=== PATIENT | female | born 1955 | race Caucasian/White ===

== ENCOUNTER → 2017-02-13 | Outpatient (CLI) | payer OTHER ==
--- NOTE | 2017-02-14 06:09 | REP ---
Right hand series: Four views. History: Right hand pain. Findings: Four views of the right hand demonstrate osteoarthritis at the first MCP and IP joints. Overall mineralization pattern is normal. No other abnormality. 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 No acute bony abnormality. Signed by Rojelio Shepherd MD 02/14/2017 08:45 A
== END ==
LOC: M LRY 16:57
PROVIDERS: ATTEND Physician Assistant
DX: M19.041 Primary osteoarthritis, right hand (principal)

== ENCOUNTER → 2018-01-11 | Outpatient (CLI) | payer OTHER ==
[2018-01-11 18:31] LABS: BASO # 0.1 10^3/uL (0.0-0.2); BASO % 1.4 % (0.0-1.0); EOS # 0.3 10^3/uL (0.0-0.50); EOS % 3.4 % (0.0-3.0); HEMATOCRIT 42.1 % (36.0-47.0); HEMOGLOBIN 14.3 g/dl (12.0-15.5); IMMATURE GRANULOCYTE % 0.4 % (0-3.0); LYMPH # 2.4 10^3/uL (1.5-4.5); LYMPH % 31.1 % (24.0-44.0); MEAN CORPUSCULAR HEMOGLOBIN 29.2 pg (27.0-33.0); MEAN CORPUSCULAR VOLUME 85.9 fl (80.0-96.0); MONO # 0.7 10^3/uL (0.0-0.8); NEUTROPHILS # 4.2 10^3/uL (1.8-7.7); NEUTROPHILS % 54.7 % (36.0-66.0); PLATELET COUNT, AUTOMATED 283 10^3/uL (150-450); RED CELL DISTRIBUTION WIDTH 11.9 % (11.5-14.5); WHITE BLOOD COUNT 7.7 10^3/uL (4.0-10.0)
[2018-01-11 18:52] LABS: RHEUMATOID FACTOR QUANT < 10.0 IU/ML (<15.0)
[2018-01-11 20:04] LABS: ERYTHROCYTE SEDIMENTATION RATE 18 mm/hr (0-30)
[2018-01-15 00:06] LABS: ANTINUCLEAR ANTIBODIES DIRECT Negative (Negative); Lyme Disease IgG Ab 18 kDa Ban Absent (.); Lyme Disease IgG Ab 23 kDa Ban Absent (.); Lyme Disease IgG Ab 28 kDa Ban Absent (.); Lyme Disease IgG Ab 30 kDa Ban Absent (.); Lyme Disease IgG Ab 39 kDa Ban Absent (.); Lyme Disease IgG Ab 41 kDa Ban Absent (.); Lyme Disease IgG Ab 45 kDa Ban Absent (.); Lyme Disease IgG Ab 58 kDa Ban Absent (.); Lyme Disease IgG Ab 66 kDa Ban Absent (.); Lyme Disease IgG Ab 93 kDa Ban Absent (.); Lyme Disease IgG West Blot Int Negative (.); Lyme Disease IgG/IgM Antibodie <0.91 ISR (0.00-0.90); Lyme Disease IgM Ab 23 kDa Ban Absent (.); Lyme Disease IgM Ab 39 kDa Ban Absent (.); Lyme Disease IgM Ab 41 kDa Ban Absent (.); Lyme Disease IgM Ab Quantitati 1.02 index (0.00-0.79); Lyme Disease IgM West Blot Int Negative (.)
== END ==
LOC: M LAB 15:50
DX: M25.511 Pain in right shoulder (principal); M25.512 Pain in left shoulder; M19.012 Primary osteoarthritis, left shoulder
CPT/HCPCS: 86140

== ENCOUNTER 2020-12-31 23:09 | Inpatient (IN) | payer OTHER, MEDICARE ==
[~2020-12-31] VITALS: Ht 170.2 cm; Wt 93.8 kg
[2021-01-01] VITALS (12 sets, daily range): BP systolic 104–138; BP diastolic 59–77; O2SAT 86–99
[2021-01-01] MEDS ORDERED: COMBIVENT RESPIMAT 100-20MCG INHALER 4GM INH PRN (01:10)
[2021-01-01 01:23] LABS: BASO % 0.1 % (0.0-1.0); HEMATOCRIT 40.8 % (36.0-47.0); HEMOGLOBIN 13.4 g/dl (12.0-15.5); LYMPH # 0.5 10^3/uL (1.5-5.0); LYMPH % 7.1 % (24.0-44.0); MEAN CORPUSCULAR HEMOGLOBIN 26.9 pg (27.0-33.0); MEAN CORPUSCULAR HGB CONC 32.8 g/dl (32.0-36.5); MEAN CORPUSCULAR VOLUME 81.8 fl (80.0-96.0); MONO # 0.5 10^3/uL (0.0-0.8); MONO % 6.9 % (2.0-8.0); NEUTROPHILS # 5.8 10^3/uL (1.5-8.5); NEUTROPHILS % 85.5 % (36.0-66.0); PLATELET COUNT, AUTOMATED 168 10^3/uL (150-450); RED BLOOD COUNT 4.99 10^6/uL (4.00-5.40); WHITE BLOOD COUNT 6.8 10^3/uL (4.0-10.0)
--- NOTE | 2021-01-01 01:28 | HPEPDOC ---
[facility] Medical History & Physical Date of Admission Jan 01, 2021 Date of Service: Jan 01, 2021 Attending Physician: TRI LANE DO History and Physical CHIEF COMPLAINT: [65 y/o female with cc of sob, fatigue x2 months] HISTORY OF PRESENT ILLNESS: [This is a 65 y/o female with a pmh of htn and hld who presents to us as a direct transfer from [facility] for management of hypoxia 2/2 covid pneumonia. Patient states that she feels as though her symptoms began in October after a carpal tunnel surgery. Patient states that after she left the hospital, she noticed that she had been becoming increasingly fatigued and sob and was no longer able to take her daily walks. Patient states that she eventually reported to [facility] er about one month ago and was subsequently transferred to [place] for cardiac workup. At [place], she underwent a cardiac cath which was found to be normal and thus was sent home. Patient again reported to [place] ED on 12/31 and was found to be hypoxic and positive for covid 19. Patient was then transferred to us for management. Patient received a dose of casirivimab/imdevimab, ceftriaxone, azithromycin and lasix at [place] [facility] before transfer. I saw and examined patient in our covid unit. Patient states that she feels as though she has been having symptoms for 2 months and has not been getting any better. Patient tells me that she has generalized malaise, fatigue and shortness of breath. Patient complains of persistent cough but states that she rarely has any sputum, and when she does it is scant and clear in color. Patient states that she also has recurrent subjective fever, anorexia, nausea. Patient denies any vomiting, chest pain, hemoptysis, diarrhea, constipation, abd pain, pedal edema. Patient did not receive her COVID vaccination. ] PAST MEDICAL HISTORY: 1. [See HPI PAST SURGICAL HISTORY: 1. [Carpal tunnel repair 2. Hysterectomy SOCIAL HISTORY: Tobacco use:[Former] ETOH: [Denies] Illicit drug use: [Denies] FAMILY HISTORY: Reviewed - none pertinent ALLERGIES: Please see below. REVIEW OF SYSTEMS: CONSTITUTIONAL: [See HPI]. HEENT: [See HPI]. CARDIOVASCULAR: [Denies chest pain, palpitations]. RESPIRATORY: [See HPI]. GASTROINTESTINAL: [Denies abd pain, n/v/d/c]. GENITOURINARY: [Denies dysuria]. SKIN: [Denies rash]. MUSCULOSKELETAL: [Denies acute joint/back pain]. NEUROLOGICAL: [Denies syncope, paresthesias]. ENDOCRINE: [Denies hx of DM]. HEMATOLOGIC/LYMPHATIC: [Denies hx of vte]. HOME MEDICATIONS: Please see below. PHYSICAL EXAMINATION: VITAL SIGNS: Please see below. GENERAL APPEARANCE: [This is a 65 y/o female who is alert and oriented to all questioning. She is obviously short of breath between speaking sentences.]. HEENT: [No mass or lesion. EOMI. No scleral icterus. Nares patent. Oral mucosa dry.]. CARDIOVASCULAR: [Tachy rate, regular rhythm. No murmurs, rubs, gallops]. LUNGS: [Severely diminished breath sounds throughout. No wheezing, rales, rhonchi]. ABDOMEN: [Soft, nontender]. MUSCULOSKELETAL: [No joint deformity]. EXTREMITIES: [No pedal edema. No overlying skin changes. Pulses intact]. NEUROLOGICAL: [Speech clear. A+Ox3. No focal deficits]. PSYCHIATRIC: [Mood and affect appear appropriate.]. LABORATORY DATA: See below. IMAGING: [CXR read from [place]: "Cardiomegaly with PVH and alveolar markings throughout both lungs consistent with alveolar edema. Bronchopneumonia or COVID can also appear in this manner."] MICROBIOLOGY: Please see below. ASSESSMENT: [This is a 65 y/o female with a pmh of htn and hld who presents to us as a direct transfer from [facility] for management of hypoxia 2/2 covid pneumonia]. . PLAN: 1. [Covid19 pna with hypoxia - Patient, as of the writing of this note, requiring 10L high flow nasal cannula to maintain saturation >90 - Will titrate o2 as needed to maintain >90, will likely need vapotherm - Will begin remdesevir, dexamethasone protocol - Per pulmonology, Dr. Franco, consider baricitinib treatment after remdesevir protocol - Combivents for sx relief - Awake pronation - Trend inflammatory markers - Admit inpatient for treatment 2. HTN - continue metoprolol 3. HLD - continue statin 4. Asthma - continue steroid inhaler DVT prophylaxis - lovenox]. Laboratory Data Labs 24H Laboratory Tests 2 01/01/21 01:02: Immature Granulocyte % (Auto) 0.4, Neutrophils (%) (Auto) 85.5H, Lymphocytes (%) (Auto) 7.1L, Monocytes (%) (Auto) 6.9, Eosinophils (%) (Auto) 0.0, Basophils (%) (Auto) 0.1, Neutrophils # (Auto) 5.8, Lymphocytes # (Auto) 0.5L, Monocytes # (Auto) 0.5, Eosinophils # (Auto) 0.0, Basophils # (Auto) 0.0, Nucleated Red Blood Cells % (auto) 0.0 CBC/BMP Laboratory Tests 01/01/21 01:02 Microbiology Microbiology 01/01/21 Blood Culture, Received Pending 01/01/21 Blood Culture, Received Pending Home Medications Scheduled Atorvastatin Calcium (Atorvastatin Calcium) 10 Mg Tablet, 10 MG PO QHS Biotin (Biotin) 5 Mg Tablet, 5,000 MCG PO QHS Calcium Carbonate/Vitamin D3 (Caltrate 600 + D Soft Chew Tab) 1 Each Tab.chew, 1 CHW PO QHS Cider Vinegar (Apple Cider Vinegar) 500 Mg Tablet, 1,000 MG PO QHS Cinnamon Bark (Cinnamon) 500 Mg Capsule, 1,000 MG PO QHS Fluticasone/Vilanterol (Breo Ellipta 100-25 Mcg INH) 1 Each Blst.w.dev, 1 PUFF INH DAILY Magnesium Oxide (Magnesium Oxide) 400 Mg Tablet, 400 MG PO QHS Metoprolol Succinate (Metoprolol Succinate) 25 Mg Tab.er.24h, 25 MG PO QHS Multivitamins (Thera M Plus Tablet) 1 Each Tablet, 1 TAB PO QHS [place]-3 Fatty Acids/Fish Oil (Fish Oil 1,000 mg Capsule) 1 Each Capsule, 1,000 MG PO QHS Primidone (Primidone) 50 Mg Tablet, 25 MG PO QHS Scheduled PRN Albuterol Sulfate (Proair Hfa) 8.5 Gm Hfa.aer.ad, 2 PUFF INH Q4H PRN for SHORTNESS OF BREATH Allergies Coded Allergies: No Known Allergies (Unverified , 11/20/08) A-FIB/CHADSVASC A-FIB History Current/History of A-Fib/PAF?: No LORNA SAPP Jan 01, 2021 01:28
[2021-01-01 01:44] LABS: ALBUMIN 2.9 GM/DL (3.2-5.2); ALT/SGPT 28 U/L (12-78); BILIRUBIN,DIRECT 0.1 MG/DL (0.0-0.2); BILIRUBIN,TOTAL 0.3 MG/DL (0.2-1.0); BLOOD UREA NITROGEN 16 MG/DL (7-18); C REACTIVE PROTEIN QUANTITATIV 6.13 MG/DL (0.00-0.30); CALCIUM LEVEL 8.4 MG/DL (8.8-10.2); CARBON DIOXIDE LEVEL 30 MEQ/L (21-32); CHLORIDE LEVEL 101 MEQ/L (98-107); CPK CREATINE PHOSPHOKINASE 94 U/L (26-192); CREATININE FOR GFR 0.82 MG/DL (0.55-1.30); FERRITIN 153 NG/ML (8-252); GLOMERULAR FILTRATION RATE > 60.0 (>45); GLUCOSE, FASTING 187 MG/DL (70-100); LDH LACTATE DEHYDROGENASE 398 U/L (84-246); MAGNESIUM LEVEL 1.9 MG/DL (1.8-2.4); NT-PRO BNP 172 PG/ML (<125); POTASSIUM SERUM 4.5 MEQ/L (3.5-5.1); SODIUM LEVEL 136 MEQ/L (136-145); TOTAL PROTEIN 6.8 GM/DL (6.4-8.2); TROPONIN I < 0.02 NG/ML (< 0.10)
[2021-01-01 01:45] LABS: INR 1.04
[2021-01-01 01:46] LABS: PARTIAL THROMBOPLASTIN TIME 33.5 SECONDS (25.9-37.0)
[2021-01-01 01:48] LABS: D-DIMER QUANT 769.65 ng/ml (<500)
[2021-01-01] MEDS ORDERED: REMDESIVIR 200 MG in NS 250 ML IV ONE (02:00)
[2021-01-01] MEDS ORDERED: PROAAER10 INH (03:06)
[2021-01-01] MEDS ORDERED: APPLTAB2 PO (03:06)
[2021-01-01] MEDS ORDERED: MAGN400T2 PO (03:06)
[2021-01-01] MEDS ORDERED: CINN500C15 PO (03:06)
[2021-01-01] MEDS ORDERED: FISH1000 PO (03:06)
[2021-01-01] MEDS ORDERED: PRIM50TA6 PO (03:06)
[2021-01-01] MEDS ORDERED: METO1TAB32 PO (03:06)
[2021-01-01] MEDS ORDERED: ATOR1TAB19 PO (03:06)
[2021-01-01] MEDS ORDERED: CALTCHW5 PO (03:06)
[2021-01-01] MEDS ORDERED: VITMTA PO (03:06)
[2021-01-01] MEDS ORDERED: BREO1INH INH (03:06)
[2021-01-01] MEDS ORDERED: SUPE5000 PO (03:06)
[2021-01-01] MEDS ORDERED: HOME MED LIST COMPLETE! XX SCH (03:10)
[2021-01-01] MEDS ORDERED: SODIUM CHLORIDE 0.9% INJ 10 ML SYR IV ONE (04:00)
--- NOTE | 2021-01-01 07:59 | ECGEPIP ---
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
[2021-01-01] MEDS: FLUTICASONE HFA 110 MCG 12 GM INHALER (FLOVENT) INH SCH ×2 (08:23→19:47)
[2021-01-01] MEDS: dexameTHASONE 20MG/5ML VIAL (J1100 PER 1MG) IV SCH (08:24)
[2021-01-01] MEDS: ASPIRIN 81MG ENTERIC TABLET PO SCH (08:24)
[2021-01-01] MEDS ORDERED: ENOXAPARIN 40MG/0.4ML SYRINGE (J1650 PER 10MG) SC SCH (09:00)
--- NOTE | 2021-01-01 09:03 | REP ---
INDICATION: covid, hypoxia COMPARISON: 12/01/2020 TECHNIQUE: Portable AP view of the chest FINDINGS: Significant diffuse bilateral alveolar infiltrates are noted throughout the bilateral lung bernal consistent with COVID-19 pulmonary disease. Mediastinum and cardiac silhouette are grossly within normal limits and stable. Skeletal structures are intact. IMPRESSION: Significant diffuse bilateral alveolar infiltrates compatible with COVID-19 pulmonary disease. <Electronically signed by Amarjit Chaudhry > 01/01/21 0900
[2021-01-01 09:24] LABS: ABG BASE EXCESS 1.1 (-2.0-2.0); ABG HCO3 24.7 MEQ/L (22.0-26.0); ABG PARTIAL PRESSURE CO2 35.8 mmHg (35.0-45.0); ABG PARTIAL PRESSURE O2 55.6 mmHg (75.0-100.0); ABG STANDARD HCO3 25.3 MEQ/L (22.0-26.0); ABG TOTAL CO2 25.8 MEQ/L (23.0-31.0); ABG pH (ARTERIAL) 7.456 UNITS (7.350-7.450)
[2021-01-01 09:35] LABS: BASO % 0.1 % (0.0-1.0); HEMATOCRIT 38.9 % (36.0-47.0); HEMOGLOBIN 12.7 g/dl (12.0-15.5); LYMPH # 0.7 10^3/uL (1.5-5.0); LYMPH % 7.5 % (24.0-44.0); MEAN CORPUSCULAR HEMOGLOBIN 26.6 pg (27.0-33.0); MEAN CORPUSCULAR HGB CONC 32.6 g/dl (32.0-36.5); MEAN CORPUSCULAR VOLUME 81.6 fl (80.0-96.0); MONO # 0.7 10^3/uL (0.0-0.8); MONO % 7.2 % (2.0-8.0); NEUTROPHILS % 84.7 % (36.0-66.0); PLATELET COUNT, AUTOMATED 176 10^3/uL (150-450); RED BLOOD COUNT 4.77 10^6/uL (4.00-5.40); WHITE BLOOD COUNT 9.5 10^3/uL (4.0-10.0)
[2021-01-01 10:07] LABS: ALBUMIN 2.7 GM/DL (3.2-5.2); ALT/SGPT 27 U/L (12-78); BILIRUBIN,TOTAL 0.3 MG/DL (0.2-1.0); BLOOD UREA NITROGEN 17 MG/DL (7-18); CALCIUM LEVEL 8.4 MG/DL (8.8-10.2); CARBON DIOXIDE LEVEL 29 MEQ/L (21-32); CHLORIDE LEVEL 105 MEQ/L (98-107); CREATININE FOR GFR 0.65 MG/DL (0.55-1.30); GLOMERULAR FILTRATION RATE > 60.0 (>45); GLUCOSE, FASTING 124 MG/DL (70-100); MAGNESIUM LEVEL 1.9 MG/DL (1.8-2.4); POTASSIUM SERUM 4.7 MEQ/L (3.5-5.1); SODIUM LEVEL 137 MEQ/L (136-145); TOTAL PROTEIN 6.6 GM/DL (6.4-8.2); TROPONIN I < 0.02 NG/ML (< 0.10)
--- NOTE | 2021-01-01 14:34 | IPNPDOC ---
Date Seen The patient was seen on 01/01/21. Progress Note SUBJECTIVE: Patient was seen examined at bedside. He is presently on Vapotherm at FiO2 100% on 40 L/min. She states that she is short of breath and she was prone for approximately 2 hours overnight and felt better. She is hypoxic down to 88% on max settings. She denies any shortness of breath palpitations fevers or chills. She denies any history of smoking prior COPD or asthma. OBJECTIVE PHYSICAL EXAMINATION: VITAL SIGNS: please see below General: NAD, comfortable HEENT: PERRLA, EOMI, sclerae clear. On Vapotherm. Neck: supple, normal ROM, no JVD Respiratory: Poor respiratory effort bilaterally CVS: RRR, normal S1, S2, no murmurs Abdo: soft, no masses, no hepatosplenomegaly, BS+, no rebound tenderness Extremities: no edema, pulses 2+ MSK: no joint deformities, normal ROM Neuro: no focal neuro deficits, moving all 4 extremities, CN2-12 intact. Strength 5/5 in all 4 extremities. No nystagmus. Psych: calm, cooperative, AAO x 3 LABORATORY DATA, IMAGING STUDIES, MICROBIOLOGY: Please see below. DVT prophylaxis ordered?: Placed patient on Covid PPx dosing of Lovenox. ASSESSMENT AND PLAN: This is a 65 y/o female with a pmh of htn and hld who presents to us as a direct transfer from [facility] for management of hypoxia 2/2 covid pneumonia. PROBLEMS: 1. Covid19 pna with hypoxia -Was desaturating on max Vapotherm settings discussed with Dr. Franco placed on CPAP. Informed by respiratory therapy that patient was desaturating on CPAP therefore placed on BiPAP settings 16/6 at 100%. -We will transfer patient to ICU for BiPAP management. Will request ICU boom stick worker for BiPAP management. - Will begin remdesevir, dexamethasone protocol - Per pulmonology, Dr. Franco, consider baricitinib treatment after remdesevir protocol - Combivents for sx relief - Awake pronation - Trend inflammatory markers - Admit inpatient for treatment 2. HTN - continue metoprolol 3. HLD - continue statin 4. Asthma - continue steroid inhaler DVT prophylaxis - lovenox VS, I&O, 24H, Fishbone Vital Signs/I&O Vital Signs Date Time Temp Pulse Resp B/P (MAP) Pulse Ox O2 Delivery O2 Flow Rate FiO2 01/01/21 14:02 95 NIPPV (BIPAP/CPAP) 100 01/01/21 12:00 97.9 50 34 132/63 (86) 01/01/21 08:35 40.0 I&O- Last 24 Hours up to 6 AM 01/01/21 06:00 Intake Total 410 ml Output Total 400 ml Balance 10 ml Laboratory Data 24H LABS Laboratory Tests 2 01/01/21 01:02: Immature Granulocyte % (Auto) 0.4, Neutrophils (%) (Auto) 85.5H, Lymphocytes (%) (Auto) 7.1L, Monocytes (%) (Auto) 6.9, Eosinophils (%) (Auto) 0.0, Basophils (%) (Auto) 0.1, Neutrophils # (Auto) 5.8, Lymphocytes # (Auto) 0.5L, Monocytes # (Auto) 0.5, Eosinophils # (Auto) 0.0, Basophils # (Auto) 0.0, Nucleated Red Blood Cells % (auto) 0.0, Prothrombin Time 14.0, Prothromb Time International Ratio 1.04, Activated Partial Thromboplast Time 33.5, Fibrinogen 562H, D-Dimer, Quantitative 769.65H, Anion Gap 5L, Glomerular Filtration Rate > 60.0, Calcium Level 8.4L, Magnesium Level 1.9, Ferritin 153, Total Bilirubin 0.3, Direct Bilirubin 0.1, Aspartate Amino Transf (AST/SGOT) 26, Alanine Aminotransferase (ALT/SGPT) 28, Alkaline Phosphatase 64, Lactate Dehydrogenase 398H, Total Creatine Kinase 94, Troponin I < 0.02, C-Reactive Protein, Quantitative 6.13H, JM-Pxv-K-Type Natriuretic Peptide 172H, Total Protein 6.8, Albumin 2.9L, Albumin/Globulin Ratio 0.7L, Procalcitonin <0.05 01/01/21 09:00: Blood Gas Bicarbonate Standard 25.3, Arterial Blood pH 7.456H, Arterial Blood Partial Pressure CO2 35.8, Arterial Blood Partial Pressure O2 55.6L, Arterial Blood Total CO2 25.8, Arterial Blood HCO3 24.7, Arterial Blood Base Excess 1.1, Arterial Blood Oxygen Saturation 89.0L 01/01/21 09:09: Immature Granulocyte % (Auto) 0.5, Neutrophils (%) (Auto) 84.7H, Lymphocytes (%) (Auto) 7.5L, Monocytes (%) (Auto) 7.2, Eosinophils (%) (Auto) 0.0, Basophils (%) (Auto) 0.1, Neutrophils # (Auto) 8.0, Lymphocytes # (Auto) 0.7L, Monocytes # (Auto) 0.7, Eosinophils # (Auto) 0.0, Basophils # (Auto) 0.0, Nucleated Red Blood Cells % (auto) 0.0, Anion Gap 3L, Glomerular Filtration Rate > 60.0, Calcium Level 8.4L, Magnesium Level 1.9, Total Bilirubin 0.3, Aspartate Amino Transf (AST/SGOT) 26, Alanine Aminotransferase (ALT/SGPT) 27, Alkaline Phosphatase 66, Troponin I < 0.02, Total Protein 6.6, Albumin 2.7L, Albumin/Globulin Ratio 0.7L CBC/BMP Laboratory Tests 01/01/21 01:02 01/01/21 09:09 Microbiology Microbiology 01/01/21 Blood Culture, Received Pending 01/01/21 Blood Culture, Received Pending DESTINI SIEGEL MD Jan 01, 2021 14:34
[2021-01-01] MEDS: ACETAMINOPHEN 500 MG TAB PO PRN (15:44)
[2021-01-01] MEDS ORDERED: METOPROLOL SUCC *XL* 25MG TAB (TopROL *XL*) PO SCH (21:00)
[2021-01-01] MEDS: MAGNESIUM OXIDE 400MG TAB (MAG-OX) PO SCH (21:38)
[2021-01-01] MEDS: ATORVASTATIN 10 MG TAB PO SCH (21:38)
[2021-01-01] MEDS: PRIMIDONE 25MG PER 1/2 TABLET PO SCH (21:38)
[2021-01-01] MEDS: ENOXAPARIN 60MG/0.6ML SYRINGE (J1650 PER 10MG) SC SCH (21:38)
[2021-01-02] VITALS (7 sets, daily range): BP systolic 109–137; BP diastolic 55–73; O2SAT 90–99
[2021-01-02] MEDS: REMDESIVIR 100 MG in NS 250 ML IV SCH (01:00)
[2021-01-02] MEDS: SODIUM CHLORIDE 0.9% INJ 10 ML SYR IV SCH (02:00)
[2021-01-02 06:03] LABS: BASO % 0.1 % (0.0-1.0); HEMATOCRIT 39.7 % (36.0-47.0); HEMOGLOBIN 12.8 g/dl (12.0-15.5); LYMPH # 0.9 10^3/uL (1.5-5.0); LYMPH % 9.4 % (24.0-44.0); MEAN CORPUSCULAR HEMOGLOBIN 26.7 pg (27.0-33.0); MEAN CORPUSCULAR HGB CONC 32.2 g/dl (32.0-36.5); MEAN CORPUSCULAR VOLUME 82.9 fl (80.0-96.0); MONO # 0.7 10^3/uL (0.0-0.8); MONO % 7.9 % (2.0-8.0); NEUTROPHILS # 7.4 10^3/uL (1.5-8.5); NEUTROPHILS % 82.3 % (36.0-66.0); PLATELET COUNT, AUTOMATED 179 10^3/uL (150-450); RED BLOOD COUNT 4.79 10^6/uL (4.00-5.40)
[2021-01-02 06:14] LABS: INR 1.13; PARTIAL THROMBOPLASTIN TIME 36.1 SECONDS (25.9-37.0); PROTHROMBIN TIME 14.9 SECONDS (12.7-14.5)
[2021-01-02 06:43] LABS: ALBUMIN 2.5 GM/DL (3.2-5.2); ALT/SGPT 29 U/L (12-78); BILIRUBIN,DIRECT < 0.1 MG/DL (0.0-0.2); BILIRUBIN,TOTAL 0.3 MG/DL (0.2-1.0); BLOOD UREA NITROGEN 29 MG/DL (7-18); CALCIUM LEVEL 8.3 MG/DL (8.8-10.2); CARBON DIOXIDE LEVEL 29 MEQ/L (21-32); CHLORIDE LEVEL 107 MEQ/L (98-107); CPK CREATINE PHOSPHOKINASE 64 U/L (26-192); CREATININE FOR GFR 0.67 MG/DL (0.55-1.30); FERRITIN 260 NG/ML (8-252); GLOMERULAR FILTRATION RATE > 60.0 (>45); GLUCOSE, FASTING 135 MG/DL (70-100); LDH LACTATE DEHYDROGENASE 558 U/L (84-246); MAGNESIUM LEVEL 2.4 MG/DL (1.8-2.4); NT-PRO BNP 115 PG/ML (<125); POTASSIUM SERUM 4.7 MEQ/L (3.5-5.1); SODIUM LEVEL 140 MEQ/L (136-145); TOTAL PROTEIN 6.2 GM/DL (6.4-8.2); TROPONIN I < 0.02 NG/ML (< 0.10)
[2021-01-02] MEDS: FLUTICASONE HFA 110 MCG 12 GM INHALER (FLOVENT) INH SCH ×2 (07:32→22:23)
[2021-01-02] MEDS: ASPIRIN 81MG ENTERIC TABLET PO SCH (08:46)
[2021-01-02] MEDS: ACETAMINOPHEN 500 MG TAB PO PRN (08:47)
[2021-01-02] MEDS: BARICITINIB 2MG TABLET (OLUMIANT) FOR EUA PO SCH (08:48)
[2021-01-02] MEDS: dexameTHASONE 20MG/5ML VIAL (J1100 PER 1MG) IV SCH (08:48)
[2021-01-02] MEDS: ENOXAPARIN 60MG/0.6ML SYRINGE (J1650 PER 10MG) SC SCH ×2 (08:49→20:12)
--- NOTE | 2021-01-02 10:25 | CR.PDOC ---
General Date of Consultation: Jan 02, 2021 Referring Provider: DESTINI SIEGEL MD Primary Care Physician: Luis Eduardo Bond Attending Physician: DESTINI SIEGEL MD Consultation REASON FOR CONSULTATION/CHIEF COMPLAINT: Hypoxic respiratory failure, ARDS, COVID-19. HISTORY OF PRESENT ILLNESS: This is a 65-year-old female with past medical history of carpal tunnel status post release back in October admitted to the hospital with shortness of breath. Ever since she had a carpal tunnel release back in October 2020, she has been experiencing shortness of breath. She was seen in pulmonology clinic and had a suspicion of undiagnosed asthma at that point. Chest CT scan done at that time show no evidence of ILD or airway disease. There was some dependent atelectasis in the lower lobes. She was sent to [facility] and then subsequently transferred to [place] for cardiac work-up. She had a cardiac catheterization done at [place] which turned out normal and she was sent home. Then she presented back to [facility] yesterday due to persistent shortness of breath and found to have COVID-19. She was profoundly hypoxic. She was given a dose of casirivimab/imdevimab, ceftriaxone, azithromycin and lasix prior to transferring here for escalation of care. She has been maxed out on Vapotherm and currently put on BiPAP with IPAP of 16 and EPAP of 6, FiO2 100%. ICU was consulted for further management. PAST MEDICAL HISTORY: 1. Carpal tunnel PAST SURGICAL HISTORY: 1. Carpal tunnel repair 2. Hysterectomy SOCIAL HISTORY: Tobacco use:[Former] ETOH: [Denies] Illicit drug use: [Denies] FAMILY HISTORY: Reviewed - none pertinent ALLERGIES: Please see below. HOME MEDICATIONS: Please see below. REVIEW OF SYSTEMS: CONSTITUTIONAL: Patient denies of weight loss, night sweats, appetite change. HEENT: Negative for sore throat. CARDIOVASCULAR: Patient denies chest pain, palpitation, diaphoresis. RESPIRATORY: Patient admits to shortness of breath and dry cough. She denies hemoptysis or wheezing. GENITOURINARY: She denies of hematuria or dysuria. MUSCULOSKELETAL: She denies a myalgia or arthralgia. GASTROINTESTINAL: She denies of nausea, vomiting, abdominal pain, diarrhea, blood in stool. SKIN: She denies of rash. NEUROLOGICAL: She denies any focal neurological deficit or slurred speech. PSYCHIATRIC: She denies of depression. ENDOCRINE: She denies a weight change. HEMATOLOGIC/LYMPHATIC: She denies of bleeding. ALLERGIC/IMMUNOLOGIC: She denies allergy. PHYSICAL EXAMINATION: VITAL SIGNS: Please see below. GENERAL APPEARANCE: Patient is alert and oriented x3. HEENT: No evidence of JVD, cervical adenopathy. RESPIRATORY: Bilateral fine crackles with no evidence of wheezing or diminished breath sounds. CARDIOVASCULAR: Normal heart sound with no evidence of extra heart sounds or murmur. ABDOMEN: Soft nontender to light and deep palpation, hypoactive bowel sounds. EXTREMITIES: No evidence of clubbing or pitting lower extremities. NEUROLOGICAL: No evidence of focal neurological deficit on gross neurological examination. PSYCHIATRIC: Alert and oriented. LABORATORY DATA: Please see below. ASSESSMENT/PLAN: This is a 65-year-old female with past medical history of carpal tunnel status post release back in October admitted to the hospital with shortness of breath. 1. Hypoxic respiratory failure. 2. COVID-19 ARDS. Plan: 1. Continue with current treatment with remdesivir and Decadron for COVID-19. Azithromycin from possible superimposed bacterial pneumonia although suspicion is less likely given largely negative procalcitonin level. 2. I added Barcitinib to her regimen. 3. Encourage self proning. 4. Patient is low threshold for intubation. I have addressed CODE STATUS with her and she wishes to remain full code for now. She has designated her 2 sons to be her healthcare proxy in case if she become incapacitated. 5. Continue with intermittent BiPAP 16/6 and Vapotherm when feeding. Vital Signs/I&O Vital Signs Date Time Temp Pulse Resp B/P (MAP) Pulse Ox O2 Delivery O2 Flow Rate FiO2 01/02/21 08:00 97.6 65 36 117/68 (84) 91 NIPPV (BIPAP/CPAP) 01/02/21 07:36 85 01/01/21 08:35 40.0 I&O- Last 24 Hours up to 6 AM 01/02/21 06:00 Intake Total 630 ml Output Total 300 ml Balance 330 ml Laboratory Data Labs 24H Laboratory Tests 2 01/02/21 05:33: Immature Granulocyte % (Auto) 0.3, Neutrophils (%) (Auto) 82.3H, Lymphocytes (%) (Auto) 9.4L, Monocytes (%) (Auto) 7.9, Eosinophils (%) (Auto) 0.0, Basophils (%) (Auto) 0.1, Neutrophils # (Auto) 7.4, Lymphocytes # (Auto) 0.9L, Monocytes # (Auto) 0.7, Eosinophils # (Auto) 0.0, Basophils # (Auto) 0.0, Nucleated Red Blo od Cells % (auto) 0.0, Prothrombin Time 14.9H, Prothromb Time International Ratio 1.13, Activated Partial Thromboplast Time 36.1, Fibrinogen 582H, Anion Gap 4L, Glomerular Filtration Rate > 60.0, Calcium Level 8.3L, Magnesium Level 2.4, Ferritin 260H, Total Bilirubin 0.3, Direct Bilirubin < 0.1, Aspartate Amino Transf (AST/SGOT) 37, Alanine Aminotransferase (ALT/SGPT) 29, Alkaline Phosphatase 63, Lactate Dehydrogenase 558H, Total Creatine Kinase 64, Troponin I < 0.02, UO-Lwy-F-Type Natriuretic Peptide 115, Total Protein 6.2L, Albumin 2.5L, Albumin/Globulin Ratio 0.7L, Procalcitonin <0.05 CBC/BMP Laboratory Tests 01/02/21 05:33 Microbiology Microbiology 01/01/21 Blood Culture - Preliminary, Resulted No growth after 24 hours . All specim... 01/01/21 Blood Culture - Preliminary, Resulted No growth after 24 hours . All specim... Allergies Coded Allergies: No Known Allergies (Unverified , 11/20/08) Home Medications Scheduled Atorvastatin Calcium (Atorvastatin Calcium) 10 Mg Tablet, 10 MG PO QHS, (Reported) Biotin (Biotin) 5 Mg Tablet, 5,000 MCG PO QHS, (Reported) Calcium Carbonate/Vitamin D3 (Caltrate 600 + D Soft Chew Tab) 1 Each Tab.chew, 1 CHW PO QHS, (Reported) Cider Vinegar (Apple Cider Vinegar) 500 Mg Tablet, 1,000 MG PO QHS, (Reported) Cinnamon Bark (Cinnamon) 500 Mg Capsule, 1,000 MG PO QHS, (Reported) Fluticasone/Vilanterol (Breo Ellipta 100-25 Mcg INH) 1 Each Blst.w.dev, 1 PUFF INH DAILY, (Reported) Magnesium Oxide (Magnesium Oxide) 400 Mg Tablet, 400 MG PO QHS, (Reported) Metoprolol Succinate (Metoprolol Succinate) 25 Mg Tab.er.24h, 25 MG PO QHS, (Reported) Multivitamins (Thera M Plus Tablet) 1 Each Tablet, 1 TAB PO QHS, (Reported) [place]-3 Fatty Acids/Fish Oil (Fish Oil 1,000 mg Capsule) 1 Each Capsule, 1,000 MG PO QHS, (Reported) Primidone (Primidone) 50 Mg Tablet, 25 MG PO QHS, (Reported) Scheduled PRN Albuterol Sulfate (Proair Hfa) 8.5 Gm Hfa.aer.ad, 2 PUFF INH Q4H PRN for SHORTNESS OF BREATH, (Reported) LINCOLN DURON MD Jan 02, 2021 10:25
--- NOTE | 2021-01-02 12:01 | IPNPDOC ---
Date Seen The patient was seen on 01/02/21. Progress Note SUBJECTIVE: Patient was seen examined at bedside. Was proned overnight. Did well on Bipap. Vapotherm when eating. States that she overall feels better, continues to have SOB. Denies chest pain, palpitations, NVD. OBJECTIVE PHYSICAL EXAMINATION: VITAL SIGNS: please see below General: NAD, comfortable HEENT: PERRLA, EOMI, sclerae clear. On Vapotherm. Neck: supple, normal ROM, no JVD Respiratory: Poor respiratory effort bilaterally CVS: RRR, normal S1, S2, no murmurs Abdo: soft, no masses, no hepatosplenomegaly, BS+, no rebound tenderness Extremities: no edema, pulses 2+ MSK: no joint deformities, normal ROM Neuro: no focal neuro deficits, moving all 4 extremities, CN2-12 intact. Strengt h 5/5 in all 4 extremities. No nystagmus. Psych: calm, cooperative, AAO x 3 LABORATORY DATA, IMAGING STUDIES, MICROBIOLOGY: Please see below. DVT prophylaxis ordered?: Placed patient on Covid PPx dosing of Lovenox. ASSESSMENT AND PLAN: This is a 65 y/o female with a pmh of htn and hld who prese nts to us as a direct transfer from [facility] for management of hypoxia 2/2 covid pneumonia. PROBLEMS: 1. Covid19 pna with hypoxia - desaturated with max vapotherm. Transitioned to Bipap 16/6 at 100%. - Continue with dexamethasone and remdesivir - Lovenox - Dr. Villa consulted, assistance is greatly appreciated. - Combivents for sx relief - Awake pronation - Trend inflammatory markers 2. HTN - continue metoprolol 3. HLD - continue statin 4. Asthma - continue steroid inhaler DVT prophylaxis - lovenox VS, I&O, 24H, Fishbone Vital Signs/I&O Vital Signs Date Time Temp Pulse Resp B/P (MAP) Pulse Ox O2 Delivery O2 Flow Rate FiO2 01/02/21 08:00 97.6 65 36 117/68 (84) 91 NIPPV (BIPAP/CPAP) 01/02/21 07:36 85 01/01/21 08:35 40.0 I&O- Last 24 Hours up to 6 AM 01/02/21 05:59 Intake Total 690 ml Output Total 300 ml Balance 390 ml Laboratory Data 24H LABS Laboratory Tests 2 01/02/21 05:33: Immature Granulocyte % (Auto) 0.3, Neutrophils (%) (Auto) 82.3H, Lymphocytes (%) (Auto) 9.4L, Monocytes (%) (Auto) 7.9, Eosinophils (%) (Auto) 0.0, Basophils (%) (Auto) 0.1, Neutrophils # (Auto) 7.4, Lymphocytes # (Auto) 0.9L, Monocytes # (Auto) 0.7, Eosinophils # (Auto) 0.0, Basophils # (Auto) 0.0, Nucleated Red Blood Cells % (auto) 0.0, Prothrombin Time 14.9H, Prothromb Time International Ratio 1.13, Activated Partial Thromboplast Time 36.1, Fibrinogen 582H, Anion Gap 4L, Glomerular Filtration Rate > 60.0, Calcium Level 8.3L, Magnesium Level 2.4, Ferritin 260H, Total Bilirubin 0.3, Direct Bilirubin < 0.1, Aspartate Amino Transf (AST/SGOT) 37, Alanine Aminotransferase (ALT/SGPT) 29, Alkaline Phosphatase 63, Lactate Dehydrogenase 558H, Total Creatine Kinase 64, Troponin I < 0.02, UV-Bgo-V-Type Natriuretic Peptide 115, Total Protein 6.2L, Albumin 2.5L, Albumin/Globulin Ratio 0.7L, Procalcitonin <0.05 CBC/BMP Laboratory Tests 01/02/21 05:33 Microbiology Microbiology 01/01/21 Blood Culture - Preliminary, Resulted No growth after 24 hours . All specim... 01/01/21 Blood Culture - Preliminary, Resulted No growth after 24 hours . All specim... DESTINI SIEGEL MD Jan 02, 2021 12:01
[2021-01-02] MEDS: PRIMIDONE 25MG PER 1/2 TABLET PO SCH (20:08)
[2021-01-02] MEDS: ATORVASTATIN 10 MG TAB PO SCH (20:09)
[2021-01-02] MEDS: MAGNESIUM OXIDE 400MG TAB (MAG-OX) PO SCH (20:10)
[2021-01-02] MEDS: METOPROLOL SUCC *XL* 25MG TAB (TopROL *XL*) PO SCH (20:11)
[2021-01-02] MEDS: AZITHROMYCIN INJ 500 MG, VIAL MATE ADAPTER 1 EACH in NS 250 ML IV SCH (20:12)
[2021-01-02] MEDS: cefTRIAXone SOD 1 GM in D5W MINI-BAG PLUS 50 ML IV SCH (21:35)
[2021-01-03] VITALS: BP 138/76; O2SAT 90
[2021-01-03] MEDS: REMDESIVIR 100 MG in NS 250 ML IV SCH (01:08)
[2021-01-03] MEDS: SODIUM CHLORIDE 0.9% INJ 10 ML SYR IV SCH (02:12)
[2021-01-03 04:00] VITALS: BP 152/71; O2SAT 90
[2021-01-03 05:20] LABS: HEMATOCRIT 40.9 % (36.0-47.0); MEAN CORPUSCULAR HEMOGLOBIN 26.6 pg (27.0-33.0); MEAN CORPUSCULAR HGB CONC 31.8 g/dl (32.0-36.5); MEAN CORPUSCULAR VOLUME 83.6 fl (80.0-96.0); PLATELET COUNT, AUTOMATED 251 10^3/uL (150-450); RED BLOOD COUNT 4.89 10^6/uL (4.00-5.40); WHITE BLOOD COUNT 13.4 10^3/uL (4.0-10.0)
[2021-01-03 05:44] LABS: BLOOD UREA NITROGEN 31 MG/DL (7-18); CALCIUM LEVEL 9.1 MG/DL (8.8-10.2); CARBON DIOXIDE LEVEL 31 MEQ/L (21-32); CHLORIDE LEVEL 109 MEQ/L (98-107); CREATININE FOR GFR 0.67 MG/DL (0.55-1.30); GLOMERULAR FILTRATION RATE > 60.0 (>45); GLUCOSE, FASTING 104 MG/DL (70-100); MAGNESIUM LEVEL 2.2 MG/DL (1.8-2.4); POTASSIUM SERUM 4.9 MEQ/L (3.5-5.1); SODIUM LEVEL 142 MEQ/L (136-145)
[2021-01-03 05:47] LABS: ATYPICAL LYMPH 2 % (0-5); LYMPHOCYTES 4 % (16-44); MONOCYTES 1 % (0-5); NEUTROPHILS 93 % (28-66); PLATELET ESTIMATE NORMAL (NORMAL)
[2021-01-03] MEDS: FLUTICASONE HFA 110 MCG 12 GM INHALER (FLOVENT) INH SCH ×2 (07:33→19:59)
[2021-01-03 09:00] VITALS: BP 173/83
[2021-01-03] MEDS: ENOXAPARIN 60MG/0.6ML SYRINGE (J1650 PER 10MG) SC SCH ×2 (09:00→20:07)
[2021-01-03] MEDS: ASPIRIN 81MG ENTERIC TABLET PO SCH (09:00)
[2021-01-03] MEDS: BARICITINIB 2MG TABLET (OLUMIANT) FOR EUA PO SCH (09:00)
[2021-01-03] MEDS: dexameTHASONE 20MG/5ML VIAL (J1100 PER 1MG) IV SCH (09:01)
--- NOTE | 2021-01-03 11:44 | IPNPDOC ---
Subjective Date Seen The patient was seen on 01/03/21. Subjective Chief Complaint/HPI Patient complains of shortness of breath and dry cough. She denies of fever, chills, chest pain, palpitation. General: Denies: Chills, Fatigue Constitutional: Denies: Chills, Fever ENT: Denies: Sore Throat Skin: Denies: Rash Pulmonary: Reports: Dyspnea, Cough Cardiovascular: Denies: Chest Pain, Palpitations, Orthopnea, Edema Gastrointestinal: Denies: Nausea, Abdominal Pain, Diarrhea Neurological: Denies: Weakness, Numbness Objective Physical Examination General Exam: Positive: Alert, Cooperative, Moderate Distress Eye Exam: Negative: Sclera icteric ENT Exam: Negative: Atraumatic Neck Exam: Positive: Supple; Negative: JVD Chest Exam: Positive: Rales (Bilateral) Heart Exam: Positive: Tachycardic Abdomen Exam: Positive: Normal bowel sounds, Soft; Negative: Tenderness Extremity Exam: Negative: Clubbing, Cyanosis, Edema Neuro Exam: Positive: Normal Speech Psych Exam: Positive: Mental status NL, Mood NL, Oriented x 3 Assessment /Plan Assessment This is a 65-year-old female with past medical history of carpal tunnel status post release back in October admitted to the hospital with shortness of breath. 1. Hypoxic respiratory failure. 2. COVID-19 ARDS. Plan/VTE VTE Prophylaxis Ordered?: Yes Plan 1. Continue with current treatment with Baricitinib, remdesivir and Decadron for COVID-19. Ceftriaxone and azithromycin from possible superimposed bacterial pneumonia although suspicion is less likely given largely negative procalcitonin level. Recommend to stop trending procalcitonin at this point. 2. Encourage self proning. 3. She is currently BiPAP dependent at this point with BiPAP setting of 16/6 FiO2 at 80%. She is very low threshold for intubation at this point. I have addressed CODE STATUS with her and she wished to remain full code. She have designated her son Tom to be her primary healthcare proxy in the event if she was to become incapacitated. Disposition Continue ICU care. VS, I&O, 24H, Fishbone Vital Signs/I&O Vital Signs Date Time Temp Pulse Resp B/P (MAP) Pulse Ox O2 Delivery O2 Flow Rate FiO2 01/03/21 09:00 100.3 96 42 173/83 (113) 88 NIPPV (BIPAP/CPAP) 80 01/03/21 08:55 40.0 I&O- Last 24 Hours up to 6 AM 01/03/21 06:00 Intake Total 1705 ml Output Total 225 ml Balance 1480 ml Laboratory Data 24H LABS Laboratory Tests 2 01/03/21 04:53: Neutrophils (%) (Auto) , Nucleated Red Blood Cells % (auto) 0.0, Neutrophils 93H, Lymphocytes (Manual) 4L, Monocytes (Manual) 1, Atypical Lymphocytes 2, Pl atelet Estimate NORMAL, Anion Gap 2L, Glomerular Filtration Rate > 60.0, Calcium Level 9.1, Magnesium Level 2.2 CBC/BMP Laboratory Tests 01/03/21 04:53 Microbiology Microbiology 01/01/21 Blood Culture - Preliminary, Resulted No Growth after 48 hours. All Specime... 01/01/21 Blood Culture - Preliminary, Resulted No Growth after 48 hours. All Specime... LINCOLN DURON MD Jan 03, 2021 11:44
--- NOTE | 2021-01-03 12:27 | IPNPDOC ---
Date Seen The patient was seen on 01/03/21. Progress Note SUBJECTIVE: Patient was seen examined at bedside. Was proned overnight.Continues to be bipap dependent. Will likely require intubation but wishes to be DNR/DNI. OBJECTIVE PHYSICAL EXAMINATION: VITAL SIGNS: please see below General: NAD, comfortable HEENT: PERRLA, EOMI, sclerae clear. On Vapotherm. Neck: supple, normal ROM, no JVD Respiratory: Poor respiratory effort bilaterally CVS: RRR, normal S1, S2, no murmurs Abdo: soft, no masses, no hepatosplenomegaly, BS+, no rebound tenderness Extremities: no edema, pulses 2+ MSK: no joint deformities, normal ROM Neuro: no focal neuro deficits, moving all 4 extremities, CN2-12 intact. Strength 5/5 in all 4 extremities. No nystagmus. Psych: calm, cooperative, AAO x 3 LABORATORY DATA, IMAGING STUDIES, MICROBIOLOGY: Please see below. DVT prophylaxis ordered?: Placed patient on Covid PPx dosing of Lovenox. ASSESSMENT AND PLAN: This is a 65 y/o female with a pmh of htn and hld who presents to us as a direct transfer from [facility] for management of hypoxia 2/2 covid pneumonia. PROBLEMS: 1. Covid19 pna with hypoxia - desaturated with max vapotherm. Transitioned to Bipap 16/6 at 100%. - Dr. Villa consulted, assistance is greatly appreciated. -Continue with remdesivir and Decadron. Azithromycin for possible superimposed bacterial pneumonia. Baricitinib added by pulmonary medicine. - procal negative, will stop trend - remains bipap dependent. Low threshold for intubation. - Combivents for sx relief - Awake pronation - Trend inflammatory markers 2. HTN - continue metoprolol 3. HLD - continue statin 4. Asthma - continue steroid inhaler DVT prophylaxis - lovenox GOC: patient had expressed her wishes to be DNR/DNI status. She continues to be Bipap dependent, and is likely going to require intubation very shortly. She states that she does not want intubation or chest compressions She discussed this with her sons. Her MOLST form was completed by Dr. Villa. I confirmed this with the patient as well. I spoke to her sons Sally and Caron. I addressed their questions regarding the use of ivermectin, and informed them that it is not approved or recommended for use in COVID-19 infection. They understood their mother's wishes and her poor prognosis at this time. VS, I&O, 24H, Fishbone Vital Signs/I&O Vital Signs Date Time Temp Pulse Resp B/P (MAP) Pulse Ox O2 Delivery O2 Flow Rate FiO2 01/03/21 09:00 100.3 96 42 173/83 (113) 88 NIPPV (BIPAP/CPAP) 80 01/03/21 08:55 40.0 I&O- Last 24 Hours up to 6 AM 01/03/21 06:00 Intake Total 1705 ml Output Total 225 ml Balance 1480 ml Laboratory Data 24H LABS Laboratory Tests 2 01/03/21 04:53: Neutrophils (%) (Auto) , Nucleated Red Blood Cells % (auto) 0.0, Neutrophils 93H, Lymphocytes (Manual) 4L, Monocytes (Manual) 1, Atypical Lymphocytes 2, Platelet Estimate NORMAL, Anion Gap 2L, Glomerular Filtration Rate > 60.0, Calcium Level 9.1, Magnesium Level 2.2 CBC/BMP Laboratory Tests 01/03/21 04:53 Microbiology Microbiology 01/01/21 Blood Culture - Preliminary, Resulted No Growth after 48 hours. All Specime... 01/01/21 Blood Culture - Preliminary, Resulted No Growth after 48 hours. All Specime... DESTINI SIEGEL MD Jan 03, 2021 12:26
[2021-01-03 12:33] VITALS: BP 179/89
[2021-01-03 16:22] VITALS: BP 135/65
[2021-01-03 20:00] VITALS: BP 132/72; O2SAT 90
[2021-01-03] MEDS: ATORVASTATIN 10 MG TAB PO SCH (20:05)
[2021-01-03] MEDS: AZITHROMYCIN INJ 500 MG, VIAL MATE ADAPTER 1 EACH in NS 250 ML IV SCH (20:05)
[2021-01-03] MEDS: MAGNESIUM OXIDE 400MG TAB (MAG-OX) PO SCH (20:06)
[2021-01-03] MEDS: PRIMIDONE 25MG PER 1/2 TABLET PO SCH (20:06)
[2021-01-03] MEDS: METOPROLOL SUCC *XL* 25MG TAB (TopROL *XL*) PO SCH (20:06)
[2021-01-03] MEDS: cefTRIAXone SOD 1 GM in D5W MINI-BAG PLUS 50 ML IV SCH (21:18)
[2021-01-04] VITALS: BP 136/64; O2SAT 94
[2021-01-04] MEDS: REMDESIVIR 100 MG in NS 250 ML IV SCH (00:06)
[2021-01-04] MEDS: SODIUM CHLORIDE 0.9% INJ 10 ML SYR IV SCH (01:12)
[2021-01-04 04:00] VITALS: BP 159/57; O2SAT 93
[2021-01-04 04:55] LABS: BASO % 0.1 % (0.0-1.0); EOS % 0.1 % (0.0-3.0); HEMATOCRIT 40.3 % (36.0-47.0); HEMOGLOBIN 13.1 g/dl (12.0-15.5); LYMPH # 0.9 10^3/uL (1.5-5.0); LYMPH % 8.6 % (24.0-44.0); MEAN CORPUSCULAR HGB CONC 32.5 g/dl (32.0-36.5); MEAN CORPUSCULAR VOLUME 83.1 fl (80.0-96.0); MONO # 0.4 10^3/uL (0.0-0.8); MONO % 4.1 % (2.0-8.0); NEUTROPHILS # 8.6 10^3/uL (1.5-8.5); NEUTROPHILS % 86.5 % (36.0-66.0); PLATELET COUNT, AUTOMATED 243 10^3/uL (150-450); RED BLOOD COUNT 4.85 10^6/uL (4.00-5.40); WHITE BLOOD COUNT 9.9 10^3/uL (4.0-10.0)
[2021-01-04 05:09] LABS: INR 1.26; PROTHROMBIN TIME 16.2 SECONDS (12.7-14.5)
[2021-01-04 05:10] LABS: PARTIAL THROMBOPLASTIN TIME 33.9 SECONDS (25.9-37.0)
[2021-01-04 05:21] LABS: ALBUMIN 2.3 GM/DL (3.2-5.2); ALT/SGPT 25 U/L (12-78); BILIRUBIN,DIRECT 0.2 MG/DL (0.0-0.2); BILIRUBIN,TOTAL 0.4 MG/DL (0.2-1.0); BLOOD UREA NITROGEN 23 MG/DL (7-18); CALCIUM LEVEL 8.4 MG/DL (8.8-10.2); CARBON DIOXIDE LEVEL 30 MEQ/L (21-32); CHLORIDE LEVEL 105 MEQ/L (98-107); CPK CREATINE PHOSPHOKINASE 56 U/L (26-192); CREATININE FOR GFR 0.59 MG/DL (0.55-1.30); FERRITIN 239 NG/ML (8-252); GLOMERULAR FILTRATION RATE > 60.0 (>45); GLUCOSE, FASTING 89 MG/DL (70-100); LDH LACTATE DEHYDROGENASE 630 U/L (84-246); MAGNESIUM LEVEL 2.1 MG/DL (1.8-2.4); NT-PRO BNP 892 PG/ML (<125); POTASSIUM SERUM 4.6 MEQ/L (3.5-5.1); SODIUM LEVEL 139 MEQ/L (136-145); TOTAL PROTEIN 6.1 GM/DL (6.4-8.2); TROPONIN I < 0.02 NG/ML (< 0.10)
[2021-01-04] MEDS: FLUTICASONE HFA 110 MCG 12 GM INHALER (FLOVENT) INH SCH ×2 (07:34→20:16)
[2021-01-04] MEDS: ASPIRIN 81MG ENTERIC TABLET PO SCH (08:19)
[2021-01-04] MEDS: dexameTHASONE 20MG/5ML VIAL (J1100 PER 1MG) IV SCH (08:19)
[2021-01-04] MEDS: ENOXAPARIN 60MG/0.6ML SYRINGE (J1650 PER 10MG) SC SCH ×2 (08:19→21:55)
[2021-01-04] MEDS: BARICITINIB 2MG TABLET (OLUMIANT) FOR EUA PO SCH (08:19)
[2021-01-04 08:27] VITALS: BP 168/75
[2021-01-04] MEDS ORDERED: FUROSEMIDE 40MG/4ML VIAL (J1940) IV ONE (09:00)
--- NOTE | 2021-01-04 09:33 | IPNPDOC ---
Subjective Date Seen The patient was seen on 01/04/21. Subjective Chief Complaint/HPI Patient complains of shortness of breath anxiety. She denies of cough, fever, chills, nausea, and abdominal pain. General: Denies: Chills, Fatigue Constitutional: Denies: Chills, Fever ENT: Denies: Sore Throat Skin: Denies: Rash Pulmonary: Reports: Dyspnea; Denies: Cough Cardiovascular: Denies: Chest Pain, Palpitations, Orthopnea Gastrointestinal: Denies: Nausea, Vomiting Objective Physical Examination General Exam: Positive: Alert, Cooperative, Moderate Distress Eye Exam: Negative: Sclera icteric ENT Exam: Negative: Atraumatic Neck Exam: Positive: Supple; Negative: JVD Chest Exam: Positive: Rales (Bilateral) Heart Exam: Positive: Tachycardic Abdomen Exam: Positive: Normal bowel sounds, Soft; Negative: Tenderness Extremity Exam: Negative: Clubbing, Cyanosis, Edema Neuro Exam: Positive: Normal Speech Psych Exam: Positive: Mental status NL, Mood NL, Oriented x 3 Assessment /Plan Assessment This is a 65-year-old female with past medical history of carpal tunnel status post release back in October admitted to the hospital with shortness of breath. 1. Hypoxic respiratory failure. 2. COVID-19 ARDS. Plan/VTE VTE Prophylaxis Ordered?: Yes Plan 1. Continue with current treatment with Baricitinib, remdesivir and Decadron for COVID-19. Ceftriaxone and azithromycin from possible superimposed bacterial pneumonia although suspicion is less likely given largely negative procalcitonin level. 2. Encourage self proning. 3. We will give a dose of Lasix today. 4. Despite BiPAP therapy, she appears to be reaching respiratory fatigue. CODE STATUS was changed to DNR/DNI by her yesterday. We will continue with supportive care. However, if she further decline, she is inclined to discuss comfort care measures. I have also spoken with one of her sons yesterday. Critical care time excluding procedure is 30 minutes. Disposition Continue ICU care. VS, I&O, 24H, Fishbone Vital Signs/I&O Vital Signs Date Time Temp Pulse Resp B/P (MAP) Pulse Ox O2 Delivery O2 Flow Rate FiO2 01/04/21 07:35 75 01/04/21 06:00 79 36 95 NIPPV (BIPAP/CPAP) 01/04/21 04:00 98.2 159/57 (91) 01/03/21 08:55 40.0 I&O- Last 24 Hours up to 6 AM 01/04/21 06:00 Intake Total 1835 ml Output Total 900 ml Balance 935 ml Laboratory Data 24H LABS Laboratory Tests 2 01/04/21 04:25: Immature Granulocyte % (Auto) 0.6, Neutrophils (%) (Auto) 86.5H, Lymphocytes (%) (Auto) 8.6L, Monocytes (%) (Auto) 4.1, Eosinophils (%) (Auto) 0.1, Basophils (%) (Auto) 0.1, Neutrophils # (Auto) 8.6H, Lymphocytes # (Auto) 0.9L, Monocytes # (Auto) 0.4, Eosinophils # (Auto) 0.0, Basophils # (Auto) 0.0, Nucleated Red Blood Cells % (auto) 0.0, Prothrombin Time 16.2H, Prothromb Time International Ratio 1.26, Activated Partial Thromboplast Time 33.9, Fibrinogen 594H, Anion Gap 4L, Glomerular Filtration Rate > 60.0, Calcium Level 8.4L, Magnesium Level 2.1, Ferritin 239, Total Bilirubin 0.4, Direct Bilirubin 0.2, Aspartate Amino Transf (AST/SGOT) 28, Alanine Aminotransferase (ALT/SGPT) 25, Alkaline Phosphatase 71, Lactate Dehydrogenase 630H, Total Creatine Kinase 56, Troponin I < 0.02, FE-Ymg-V-Type Natriuretic Peptide 892H, Total Protein 6.1L, Albumin 2.3L, Albumin/Globulin Ratio 0.6L CBC/BMP Laboratory Tests 01/04/21 04:25 Microbiology Microbiology 01/01/21 Blood Culture - Preliminary, Resulted No Growth after 72 hours. All specime... 01/01/21 Blood Culture - Preliminary, Resulted No Growth after 72 hours. All specime... LINCOLN DURON MD Jan 04, 2021 09:33
--- NOTE | 2021-01-04 10:45 | IPNPDOC ---
Date Seen The patient was seen on 01/04/21. Progress Note SUBJECTIVE: Patient was seen examined at bedside. Was proned overnight.Continues to be bipap dependent. Will likely require intubation but wishes to be DNR/DNI. OBJECTIVE PHYSICAL EXAMINATION: VITAL SIGNS: please see below General: NAD, comfortable HEENT: PERRLA, EOMI, sclerae clear. On Vapotherm. Neck: supple, normal ROM, no JVD Respiratory: Poor respiratory effort bilaterally CVS: RRR, normal S1, S2, no murmurs Abdo: soft, no masses, no hepatosplenomegaly, BS+, no rebound tenderness Extremities: no edema, pulses 2+ MSK: no joint deformities, normal ROM Neuro: no focal neuro deficits, moving all 4 extremities, CN2-12 intact. Strength 5/5 in all 4 extremities. No nystagmus. Psych: calm, cooperative, AAO x 3 LABORATORY DATA, IMAGING STUDIES, MICROBIOLOGY: Please see below. DVT prophylaxis ordered?: Placed patient on Covid PPx dosing of Lovenox. ASSESSMENT AND PLAN: This is a 65 y/o female with a pmh of htn and hld who presents to us as a direct transfer from [facility] for management of hypoxia 2/2 covid pneumonia. PROBLEMS: 1. Covid19 pna with hypoxia - desaturated with max vapotherm. Transitioned to Bipap 16/6 at 100%. - Dr. Villa consulted, assistance is greatly appreciated. -Persistent. Remdesivir. Dexamethasone. Azithromycin. - procal negative, will stop trend - remains bipap dependent. Low threshold for intubation. - lasix dose ordered by Dr. Villa. - Combivents for sx relief - Awake pronation - Trend inflammatory markers 2. HTN - continue metoprolol 3. HLD - continue statin 4. Asthma - continue steroid inhaler DVT prophylaxis - lovenox GOC: patient had expressed her wishes to be DNR/DNI status. She continues to be Bipap dependent, and is likely going to require intubation very shortly. She states that she does not want intubation or chest compressions. She discussed this with her sons. Her MOLST form was completed by Dr. Villa. I confirmed this with the patient again this morning. I updated her son Tom (tel: [phone]), and provided updates. If the patient continues to become weaker on bipap, we may need to start a converstation regarding comfort measures. VS, I&O, 24H, Fishbone Vital Signs/I&O Vital Signs Date Time Temp Pulse Resp B/P (MAP) Pulse Ox O2 Delivery O2 Flow Rate FiO2 01/04/21 08:35 93 89 NIPPV (BIPAP/CPAP) 85 01/04/21 08:30 40.0 01/04/21 08:27 98.0 42 168/75 (106) I&O- Last 24 Hours up to 6 AM 01/04/21 06:00 Intake Total 1835 ml Output Total 900 ml Balance 935 ml Laboratory Data 24H LABS Laboratory Tests 2 01/04/21 04:25: Immature Granulocyte % (Auto) 0.6, Neutrophils (%) (Auto) 86.5H, Lymphocytes (%) (Auto) 8.6L, Monocytes (%) (Auto) 4.1, Eosinophils (%) (Auto) 0.1, Basophils (%) (Auto) 0.1, Neutrophils # (Auto) 8.6H, Lymphocytes # (Auto) 0.9L, Monocytes # (Auto) 0.4, Eosinophils # (Auto) 0.0, Basophils # (Auto) 0.0, Nucleated Red B lood Cells % (auto) 0.0, Prothrombin Time 16.2H, Prothromb Time International Ratio 1.26, Activated Partial Thromboplast Time 33.9, Fibrinogen 594H, Anion Gap 4L, Glomerular Filtration Rate > 60.0, Calcium Level 8.4L, Magnesium Level 2.1, Ferritin 239, Total Bilirubin 0.4, Direct Bilirubin 0.2, Aspartate Amino Transf (AST/SGOT) 28, Alanine Aminotransferase (ALT/SGPT) 25, Alkaline Phosphatase 71, Lactate Dehydrogenase 630H, Total Creatine Kinase 56, Troponin I < 0.02, UV-Urw-H-Type Natriuretic Peptide 892H, Total Protein 6.1L, Albumin 2.3L, Albumin/Globulin Ratio 0.6L CBC/BMP Laboratory Tests 01/04/21 04:25 Microbiology Microbiology 01/01/21 Blood Culture - Preliminary, Resulted No Growth after 72 hours. All specime... 01/01/21 Blood Culture - Preliminary, Resulted No Growth after 72 hours. All specime... DESTINI SIEGEL MD Jan 04, 2021 10:45
[2021-01-04 11:27] VITALS: BP 148/71
[2021-01-04 15:57] VITALS: BP 115/49
[2021-01-04 20:00] VITALS: BP 132/61; O2SAT 94
[2021-01-04] MEDS: AZITHROMYCIN INJ 500 MG, VIAL MATE ADAPTER 1 EACH in NS 250 ML IV SCH (20:35)
[2021-01-04] MEDS: cefTRIAXone SOD 1 GM in D5W MINI-BAG PLUS 50 ML IV SCH (21:54)
[2021-01-04] MEDS: PRIMIDONE 25MG PER 1/2 TABLET PO SCH (21:55)
[2021-01-04] MEDS: METOPROLOL SUCC *XL* 25MG TAB (TopROL *XL*) PO SCH (21:55)
[2021-01-04] MEDS: ATORVASTATIN 10 MG TAB PO SCH (21:55)
[2021-01-04] MEDS: MAGNESIUM OXIDE 400MG TAB (MAG-OX) PO SCH (21:55)
[2021-01-05] VITALS: BP 127/58; O2SAT 95
[2021-01-05] MEDS: REMDESIVIR 100 MG in NS 250 ML IV SCH (00:58)
[2021-01-05] MEDS: SODIUM CHLORIDE 0.9% INJ 10 ML SYR IV SCH (00:58)
[2021-01-05 04:00] VITALS: BP 135/64; O2SAT 92
[2021-01-05 04:58] LABS: BASO % 0.1 % (0.0-1.0); EOS % 0.3 % (0.0-3.0); HEMATOCRIT 41.2 % (36.0-47.0); HEMOGLOBIN 13.2 g/dl (12.0-15.5); LYMPH # 0.8 10^3/uL (1.5-5.0); LYMPH % 8.3 % (24.0-44.0); MEAN CORPUSCULAR HEMOGLOBIN 26.1 pg (27.0-33.0); MEAN CORPUSCULAR VOLUME 81.6 fl (80.0-96.0); MONO # 0.5 10^3/uL (0.0-0.8); MONO % 5.2 % (2.0-8.0); NEUTROPHILS # 8.6 10^3/uL (1.5-8.5); NEUTROPHILS % 85.5 % (36.0-66.0); PLATELET COUNT, AUTOMATED 295 10^3/uL (150-450); RED BLOOD COUNT 5.05 10^6/uL (4.00-5.40); WHITE BLOOD COUNT 10.1 10^3/uL (4.0-10.0)
[2021-01-05 05:20] LABS: BLOOD UREA NITROGEN 30 MG/DL (7-18); CALCIUM LEVEL 8.6 MG/DL (8.8-10.2); CARBON DIOXIDE LEVEL 30 MEQ/L (21-32); CHLORIDE LEVEL 104 MEQ/L (98-107); CREATININE FOR GFR 0.59 MG/DL (0.55-1.30); GLOMERULAR FILTRATION RATE > 60.0 (>45); GLUCOSE, FASTING 103 MG/DL (70-100); MAGNESIUM LEVEL 2.3 MG/DL (1.8-2.4); POTASSIUM SERUM 4.6 MEQ/L (3.5-5.1); SODIUM LEVEL 139 MEQ/L (136-145)
[2021-01-05] MEDS: FLUTICASONE HFA 110 MCG 12 GM INHALER (FLOVENT) INH SCH ×2 (07:50→20:08)
[2021-01-05] MEDS: ENOXAPARIN 60MG/0.6ML SYRINGE (J1650 PER 10MG) SC SCH ×2 (08:31→20:39)
[2021-01-05] MEDS: dexameTHASONE 20MG/5ML VIAL (J1100 PER 1MG) IV SCH (08:31)
[2021-01-05] MEDS: ASPIRIN 81MG ENTERIC TABLET PO SCH (08:32)
[2021-01-05] MEDS: BARICITINIB 2MG TABLET (OLUMIANT) FOR EUA PO SCH (08:32)
[2021-01-05 08:43] VITALS: BP 147/67
[2021-01-05 12:00] VITALS: BP 124/58
--- NOTE | 2021-01-05 13:05 | IPNPDOC ---
Date Seen The patient was seen on 01/05/21. Progress Note SUBJECTIVE: Patient seen examined at bedside. She is prone. She is currently on BiPAP. We will trial her on Vapotherm today. Patient is seems to breathing relatively comfortably. She is not acutely short of breath on the BiPAP. Denies any chest pressures or palpitations. OBJECTIVE PHYSICAL EXAMINATION: VITAL SIGNS: please see below General: NAD, comfortable HEENT: PERRLA, EOMI, sclerae clear. On Vapotherm. Neck: supple, normal ROM, no JVD Respiratory: Poor respiratory effort bilaterally CVS: RRR, normal S1, S2, no murmurs Abdo: soft, no masses, no hepatosplenomegaly, BS+, no rebound tenderness Extremities: no edema, pulses 2+ MSK: no joint deformities, normal ROM Neuro: no focal neuro deficits, moving all 4 extremities, CN2-12 intact. Strength 5/5 in all 4 extremities. No nystagmus. Psych: calm, cooperative, AAO x 3 LABORATORY DATA, IMAGING STUDIES, MICROBIOLOGY: Please see below. DVT prophylaxis ordered?: Placed patient on Covid PPx dosing of Lovenox. ASSESSMENT AND PLAN: This is a 65 y/o female with a pmh of htn and hld who presents to us as a direct transfer from [facility] for management of hypoxia 2/2 covid pneumonia. PROBLEMS: 1. Covid19 pna with hypoxia - desaturated with max vapotherm. Transitioned to Bipap 16/6 at 100%. - Dr. Villa consulted, assistance is greatly appreciated. - procal negative, will stop trend - remains bipap dependent. Low threshold for intubation. -Continue with dexamethasone remdesivir and baricitinib. Azithromycin for pneum onia coverage - seems to be showing a mild improvement after 40 mg IV lasix yesterday - will give an additional dose today. - Combivents for sx relief - Awake pronation - Trend inflammatory markers 2. HTN - continue metoprolol 3. HLD - continue statin 4. Asthma - continue steroid inhaler DVT prophylaxis - lovenox GOC: patient had expressed her wishes to be DNR/DNI status. She continues to be Bipap dependent, and is likely going to require intubation very shortly. She states that she does not want intubation or chest compressions. VS, I&O, 24H, Fishbone Vital Signs/I&O Vital Signs Date Time Temp Pulse Resp B/P (MAP) Pulse Ox O2 Delivery O2 Flow Rate FiO2 01/05/21 12:32 95 HVNI-Vapotherm 40.0 100 01/05/21 12:31 74 28 01/05/21 12:00 98.8 124/58 (80) I&O- Last 24 Hours up to 6 AM 01/05/21 06:00 Intake Total 1005 ml Output Total 1925 ml Balance -920 ml Laboratory Data 24H LABS Laboratory Tests 2 01/05/21 04:25: Immature Granulocyte % (Auto) 0.6, Neutrophils (%) (Auto) 85.5H, Lymphocytes (%) (Auto) 8.3L, Monocytes (%) (Auto) 5.2, Eosinophils (%) (Auto) 0.3, Basophils (%) (Auto) 0.1, Neutrophils # (Auto) 8.6H, Lymphocytes # (Auto) 0.8L, Monocytes # (Auto) 0.5, Eosinophils # (Auto) 0.0, Basophils # (Auto) 0.0, Nucleated Red Blood Cells % (auto) 0.0, Anion Gap 5L, Glomerular Filtration Rate > 60.0, Calcium Level 8.6L, Magnesium Level 2.3 CBC/BMP Laboratory Tests 01/05/21 04:25 Microbiology Microbiology 01/01/21 Blood Culture - Preliminary, Resulted No Growth after 72 hours. All specime... 01/01/21 Blood Culture - Preliminary, Resulted No Growth after 72 hours. All specime... DESTINI SIEGEL MD Jan 05, 2021 13:05
--- NOTE | 2021-01-05 13:14 | IPNPDOC ---
Subjective Date Seen The patient was seen on 01/05/21. Subjective Chief Complaint/HPI Patient states she feels better in terms of her respiratory distress/shortness of breath and cough. She denies a fever, chills, chest pain, palpitation, LE swelling. Constitutional: Denies: Chills, Fever Pulmonary: Reports: Dyspnea, Cough Cardiovascular: Denies: Chest Pain, Palpitations, Orthopnea, Paroxysmal Noc. Dyspnea Gastrointestinal: Denies: Nausea, Vomiting, Diarrhea Neurological: Denies: Weakness, Numbness Objective Physical Examination General Exam: Positive: Alert, Cooperative, Moderate Distress Eye Exam: Negative: Sclera icteric ENT Exam: Negative: Atraumatic Neck Exam: Positive: Supple; Negative: JVD Chest Exam: Positive: Rales (Bilateral) Heart Exam: Positive: Tachycardic Abdomen Exam: Positive: Normal bowel sounds, Soft; Negative: Tenderness Extremity Exam: Negative: Clubbing, Cyanosis, Edema Neuro Exam: Positive: Normal Speech Psych Exam: Positive: Mental status NL, Mood NL, Oriented x 3 Assessment /Plan Assessment This is a 62-year-old female with past medical history of carpal tunnel status post surgery admitted to the ICU with hypoxic respiratory failure secondary to COVID-19 pneumonia ARDS. 1. Hypoxic respiratory failure 2. COVID-19 pneumonia 3. ARDS Plan/VTE VTE Prophylaxis Ordered?: Yes Plan -Patient responded well to 1 dose of Lasix challenge with good diuretic response. Respiratory status is slightly improved today compared to yesterday. She is able to tolerate Vapotherm on max setting. We will continue with Vapotherm and encourage her to increase her caloric intake. She should go back on BiPAP at night when she goes to sleep. We will continue to encourage her to perform self proning. Lasix as needed to keep net fluid balance 0. Critical care time excluding procedures 30 minutes. Disposition Continue ICU care. VS, I&O, 24H, Fishbone Vital Signs/I&O Vital Signs Date Time Temp Pulse Resp B/P (MAP) Pulse Ox O2 Delivery O2 Flow Rate FiO2 01/05/21 12:32 95 HVNI-Vapotherm 40.0 100 01/05/21 12:31 74 28 01/05/21 12:00 98.8 124/58 (80) I&O- Last 24 Hours up to 6 AM 01/05/21 06:00 Intake Total 1005 ml Output Total 1925 ml Balance -920 ml Laboratory Data 24H LABS Laboratory Tests 2 01/05/21 04:25: Immature Granulocyte % (Auto) 0.6, Neutrophils (%) (Auto) 85.5H, Lymphocytes (%) (Auto) 8.3L, Monocytes (%) (Auto) 5.2, Eosinophils (%) (Auto) 0.3, Basophils (%) (Auto) 0.1, Neutrophils # (Auto) 8.6H, Lymphocytes # (Auto) 0.8L, Monocytes # (Auto) 0.5, Eosinophils # (Auto) 0.0, Basophils # (Auto) 0.0, Nucleated Red Blood Cells % (auto) 0.0, Anion Gap 5L, Glomerular Filtration Rate > 60.0, Calcium Level 8.6L, Magnesium Level 2.3 CBC/BMP Laboratory Tests 01/05/21 04:25 Microbiology Microbiology 01/01/21 Blood Culture - Preliminary, Resulted No Growth after 72 hours. All specime... 01/01/21 Blood Culture - Preliminary, Resulted No Growth after 72 hours. All specime... LINCOLN DURON MD Jan 05, 2021 13:13
[2021-01-05] MEDS ORDERED: FUROSEMIDE 40MG/4ML VIAL (J1940) IV ONE (14:00)
[2021-01-05 16:00] VITALS: BP 111/55
[2021-01-05] MEDS: AZITHROMYCIN INJ 500 MG, VIAL MATE ADAPTER 1 EACH in NS 250 ML IV SCH (19:36)
[2021-01-05 20:00] VITALS: BP 113/63
[2021-01-05] MEDS: ATORVASTATIN 10 MG TAB PO SCH (20:38)
[2021-01-05] MEDS: MAGNESIUM OXIDE 400MG TAB (MAG-OX) PO SCH (20:38)
[2021-01-05] MEDS: PRIMIDONE 25MG PER 1/2 TABLET PO SCH (20:39)
[2021-01-05] MEDS: cefTRIAXone SOD 1 GM in D5W MINI-BAG PLUS 50 ML IV SCH (20:39)
[2021-01-05] MEDS: METOPROLOL SUCC *XL* 25MG TAB (TopROL *XL*) PO SCH (20:39)
[2021-01-06] VITALS: BP 141/65
[2021-01-06 05:19] LABS: PARTIAL THROMBOPLASTIN TIME 32.4 SECONDS (25.9-37.0)
[2021-01-06 05:30] LABS: INR 1.21; PROTHROMBIN TIME 15.7 SECONDS (12.7-14.5)
[2021-01-06 05:38] LABS: ALBUMIN 2.3 GM/DL (3.2-5.2); ALT/SGPT 41 U/L (12-78); BILIRUBIN,DIRECT 0.2 MG/DL (0.0-0.2); BILIRUBIN,TOTAL 0.4 MG/DL (0.2-1.0); CPK CREATINE PHOSPHOKINASE 150 U/L (26-192); FERRITIN 217 NG/ML (8-252); LDH LACTATE DEHYDROGENASE 522 U/L (84-246); NT-PRO BNP 140 PG/ML (<125); TOTAL PROTEIN 6.5 GM/DL (6.4-8.2); TROPONIN I < 0.02 NG/ML (< 0.10)
[2021-01-06 07:29] LABS: BASO % 0.1 % (0.0-1.0); EOS # 0.1 10^3/uL (0.0-0.5); EOS % 0.5 % (0.0-3.0); HEMATOCRIT 42.5 % (36.0-47.0); HEMOGLOBIN 13.6 g/dl (12.0-15.5); LYMPH # 0.9 10^3/uL (1.5-5.0); LYMPH % 7.1 % (24.0-44.0); MEAN CORPUSCULAR HEMOGLOBIN 26.3 pg (27.0-33.0); MEAN CORPUSCULAR VOLUME 82.2 fl (80.0-96.0); MONO # 0.5 10^3/uL (0.0-0.8); MONO % 3.9 % (2.0-8.0); NEUTROPHILS # 10.6 10^3/uL (1.5-8.5); NEUTROPHILS % 87.2 % (36.0-66.0); PLATELET COUNT, AUTOMATED 384 10^3/uL (150-450); RED BLOOD COUNT 5.17 10^6/uL (4.00-5.40); WHITE BLOOD COUNT 12.2 10^3/uL (4.0-10.0)
[2021-01-06 07:34] LABS: BLOOD UREA NITROGEN 35 MG/DL (7-18); CALCIUM LEVEL 8.8 MG/DL (8.8-10.2); CARBON DIOXIDE LEVEL 32 MEQ/L (21-32); CHLORIDE LEVEL 105 MEQ/L (98-107); CREATININE FOR GFR 0.67 MG/DL (0.55-1.30); GLOMERULAR FILTRATION RATE > 60.0 (>45); GLUCOSE, FASTING 108 MG/DL (70-100); MAGNESIUM LEVEL 2.5 MG/DL (1.8-2.4); POTASSIUM SERUM 4.9 MEQ/L (3.5-5.1); SODIUM LEVEL 140 MEQ/L (136-145)
[2021-01-06] MEDS: FLUTICASONE HFA 110 MCG 12 GM INHALER (FLOVENT) INH SCH ×2 (07:34→19:59)
[2021-01-06 08:00] VITALS: BP 103/54
[2021-01-06] MEDS: ENOXAPARIN 60MG/0.6ML SYRINGE (J1650 PER 10MG) SC SCH ×2 (08:45→20:16)
[2021-01-06] MEDS: ASPIRIN 81MG ENTERIC TABLET PO SCH (08:45)
[2021-01-06] MEDS: BARICITINIB 2MG TABLET (OLUMIANT) FOR EUA PO SCH (08:46)
[2021-01-06] MEDS: dexameTHASONE 20MG/5ML VIAL (J1100 PER 1MG) IV SCH (08:46)
[2021-01-06] MEDS ORDERED: MIRALAX *UNIT DOSE* 17GM PACKET PO PRN (09:35)
--- NOTE | 2021-01-06 10:40 | IPNPDOC ---
Subjective Date Seen The patient was seen on 01/06/21. Subjective Chief Complaint/HPI Patient admits to improvement in her clinical symptom. She is less short of breath and coughing today. She is tolerating Vapotherm. General: Denies: Chills Constitutional: Denies: Chills, Fever Skin: Denies: Rash Pulmonary: Reports: Dyspnea; Denies: Cough Cardiovascular: Denies: Chest Pain, Palpitations, Orthopnea Gastrointestinal: Denies: Nausea, Vomiting Neurological: Denies: Weakness Objective Physical Examination General Exam: Positive: Alert, Cooperative, Moderate Distress Eye Exam: Negative: Sclera icteric ENT Exam: Negative: Atraumatic Neck Exam: Positive: Supple Chest Exam: Positive: Rales (Bilateral) Heart Exam: Positive: Tachycardic Abdomen Exam: Positive: Normal bowel sounds, Soft Extremity Exam: Negative: Clubbing, Cyanosis, Edema Neuro Exam: Positive: Normal Speech Psych Exam: Positive: Mental status NL, Mood NL, Oriented x 3 Assessment /Plan Assessment This is a 62-year-old female with past medical history of carpal tunnel status post surgery admitted to the ICU with hypoxic respiratory failure secondary to COVID-19 pneumonia ARDS. 1. Hypoxic respiratory failure 2. COVID-19 pneumonia 3. ARDS Plan/VTE VTE Prophylaxis Ordered?: Yes Plan -Her clinical symptoms improved after she received a dose of Lasix 2 days ago. She responded well with aggressive diuresis. Her oxygenation is improving now that she is able to tolerate intermittent Vapotherm along with BiPAP. She has completed her course of remdesivir. We will continue with Baricitinib and dexamethasone. She is also on empiric antibiotics for community-acquired pneumonia. Continue to encourage self proning when she is in her bed. Lasix as needed to keep net fluid balance as 0. Disposition Continue ICU care. VS, I&O, 24H, Fishbone Vital Signs/I&O Vital Signs Date Time Temp Pulse Resp B/P (MAP) Pulse Ox O2 Delivery O2 Flow Rate FiO2 01/06/21 10:00 72 29 94 NIPPV (BIPAP/CPAP) 75 01/06/21 09:00 40.0 01/06/21 08:00 97.6 103/54 (70) I&O- Last 24 Hours up to 6 AM 01/06/21 06:00 Intake Total 2385 ml Output Total 2475 ml Balance -90 ml Laboratory Data 24H LABS Laboratory Tests 2 01/06/21 04:43: Immature Granulocyte % (Auto) 1.2, Neutrophils (%) (Auto) 87.2H, Lymphocytes (%) (Auto) 7.1L, Monocytes (%) (Auto) 3.9, Eosinophils (%) (Auto) 0.5, Basophils (%) (Auto) 0.1, Neutrophils # (Auto) 10.6H, Lymphocytes # (Auto) 0.9L, Monocytes # (Auto) 0.5, Eosinophils # (Auto) 0.1, Basophils # (Auto) 0.0, Nucleated Red Blood Cells % (auto) 0.0, Prothrombin Time 15.7H, Prothromb Time International Ratio 1.21, Activated Partial Thromboplast Time 32.4, Fibrinogen 687H, Anion Gap 3L, Glomerular Filtration Rate > 60.0, Calcium Level 8.8, Magnesium Level 2.5H, Ferritin 217, Total Bilirubin 0.4, Direct Bilirubin 0.2, Aspartate Amino Transf (AST/SGOT) 29, Alanine Aminotransferase (ALT/SGPT) 41, Alkaline Phosphatase 70, Lactate Dehydrogenase 522H, Total Creatine Kinase 150#, Troponin I < 0.02, HS-Xjz-U-Type Natriuretic Peptide 140H, Total Protein 6.5, Albumin 2.3L, Albumin/Globulin Ratio 0.5L, Procalcitonin 0.05 CBC/BMP Laboratory Tests 01/06/21 04:43 Microbiology Microbiology 01/01/21 Blood Culture - Final, Complete NO GROWTH AFTER 5 DAYS 01/01/21 Blood Culture - Final, Complete NO GROWTH AFTER 5 DAYS LINCOLN DURON MD Jan 06, 2021 10:40
--- NOTE | 2021-01-06 11:39 | IPNPDOC ---
Text Note Date of Service The patient was seen on 01/06/21. NOTE Subjective: Patient stated that she feels better today, she reported that her breathing improved. Objective: GENERAL APPEARANCE: NAD HEENT: no scleral icterus, no JVD, EOMI CARDIOVASCULAR: S1S2 LUNGS: CTA ABDOMEN: soft & not tender w palpation MUSCULOSKELETAL: no cyanosis, no swelling INTEGUMENT: no generalized pallor NEUROLOGICAL: cranial nerve function from 2-12 intact, follows commands, speech not dysarthric Assessment and plan: This is a 65 y/o female with a pmh of htn and hld who presents to us as a direct transfer from [facility] for management of hypoxia 2/2 covid pneumonia COVID-19 pneumonia/ARDS/ Completed course of remdesivir Continue Vapotherm in the daytime and BiPAP overnight Continue baricitinib and Decadron IV Continue antibiotic therapy with ceftriaxone and azithromycin per metal tube cutter recommendation Continue self proning Continue full dose of anticoagulation Hypertension Blood pressure under control Continue home meds HLD continue statin Asthma continue steroid inhaler VS,Fishbone, I+O VS, Fishbone, I+O Laboratory Tests 01/06/21 04:43 Vital Signs Date Time Temp Pulse Resp B/P (MAP) Pulse Ox O2 Delivery O2 Flow Rate FiO2 01/06/21 10:00 72 29 94 NIPPV (BIPAP/CPAP) 75 01/06/21 09:00 40.0 01/06/21 08:00 97.6 103/54 (70) I&O- Last 24 Hours up to 6 AM 01/06/21 06:00 Intake Total 2385 ml Output Total 2475 ml Balance -90 ml BEATRIZ AYERS DO Jan 06, 2021 11:39
[2021-01-06 14:00] VITALS: BP 117/68
[2021-01-06 15:07] LABS: MYCOPLASMA PNEUMONIAE IgG 586 U/mL (0-99); MYCOPLASMA PNEUMONIAE IgM <770 U/mL (0-769)
[2021-01-06 16:00] VITALS: BP 106/63
[2021-01-06] MEDS: AZITHROMYCIN INJ 500 MG, VIAL MATE ADAPTER 1 EACH in NS 250 ML IV SCH (19:12)
[2021-01-06 20:00] VITALS: BP 116/69
[2021-01-06] MEDS: cefTRIAXone SOD 1 GM in D5W MINI-BAG PLUS 50 ML IV SCH (20:00)
[2021-01-06] MEDS: MAGNESIUM OXIDE 400MG TAB (MAG-OX) PO SCH (20:16)
[2021-01-06] MEDS: ATORVASTATIN 10 MG TAB PO SCH (20:16)
[2021-01-06] MEDS: PRIMIDONE 25MG PER 1/2 TABLET PO SCH (20:16)
[2021-01-06] MEDS: METOPROLOL SUCC *XL* 25MG TAB (TopROL *XL*) PO SCH (20:18)
[2021-01-07] VITALS: BP 149/65
[2021-01-07 04:00] VITALS: BP 108/55
[2021-01-07 06:00] LABS: BASO % 0.2 % (0.0-1.0); EOS # 0.1 10^3/uL (0.0-0.5); EOS % 0.9 % (0.0-3.0); HEMATOCRIT 40.8 % (36.0-47.0); HEMOGLOBIN 13.3 g/dl (12.0-15.5); LYMPH # 0.9 10^3/uL (1.5-5.0); LYMPH % 7.7 % (24.0-44.0); MEAN CORPUSCULAR HEMOGLOBIN 26.4 pg (27.0-33.0); MEAN CORPUSCULAR HGB CONC 32.6 g/dl (32.0-36.5); MEAN CORPUSCULAR VOLUME 81.1 fl (80.0-96.0); MONO # 0.5 10^3/uL (0.0-0.8); MONO % 4.5 % (2.0-8.0); NEUTROPHILS # 10.1 10^3/uL (1.5-8.5); NEUTROPHILS % 85.4 % (36.0-66.0); PLATELET COUNT, AUTOMATED 414 10^3/uL (150-450); RED BLOOD COUNT 5.03 10^6/uL (4.00-5.40); WHITE BLOOD COUNT 11.9 10^3/uL (4.0-10.0)
[2021-01-07 06:17] LABS: ALBUMIN 2.2 GM/DL (3.2-5.2); ALT/SGPT 42 U/L (12-78); BILIRUBIN,TOTAL 0.5 MG/DL (0.2-1.0); BLOOD UREA NITROGEN 30 MG/DL (7-18); CARBON DIOXIDE LEVEL 32 MEQ/L (21-32); CHLORIDE LEVEL 100 MEQ/L (98-107); CREATININE FOR GFR 0.56 MG/DL (0.55-1.30); GLOMERULAR FILTRATION RATE > 60.0 (>45); GLUCOSE, FASTING 95 MG/DL (70-100); MAGNESIUM LEVEL 2.3 MG/DL (1.8-2.4); POTASSIUM SERUM 4.3 MEQ/L (3.5-5.1); SODIUM LEVEL 134 MEQ/L (136-145); TOTAL PROTEIN 6.8 GM/DL (6.4-8.2)
[2021-01-07] MEDS: FLUTICASONE HFA 110 MCG 12 GM INHALER (FLOVENT) INH SCH ×2 (08:00→19:50)
[2021-01-07] MEDS: dexameTHASONE 20MG/5ML VIAL (J1100 PER 1MG) IV SCH (09:09)
[2021-01-07] MEDS: BARICITINIB 2MG TABLET (OLUMIANT) FOR EUA PO SCH (09:10)
[2021-01-07] MEDS: ENOXAPARIN 60MG/0.6ML SYRINGE (J1650 PER 10MG) SC SCH ×2 (09:10→20:27)
[2021-01-07] MEDS: ASPIRIN 81MG ENTERIC TABLET PO SCH (09:10)
[2021-01-07 10:00] VITALS: BP 130/65
--- NOTE | 2021-01-07 10:17 | IPNPDOC ---
Text Note Date of Service The patient was seen on 01/07/21. NOTE Subjective: No any acute events overnight. Patient stated that she feels better today. No fever or chills Objective: GENERAL APPEARANCE: NAD HEENT: no scleral icterus, no JVD, EOMI CARDIOVASCULAR: S1S2 LUNGS: CTA ABDOMEN: soft & not tender w palpation MUSCULOSKELETAL: no cyanosis, no swelling INTEGUMENT: no generalized pallor NEUROLOGICAL: cranial nerve function from 2-12 intact, follows commands, speech not dysarthric Assessment and plan: This is a 65 y/o female with a pmh of htn and hld who presents to us as a direct transfer from [facility] for management of hypoxia 2/2 covid pneumonia COVID-19 pneumonia/ARDS/ Completed course of remdesivir Continue Vapotherm in the daytime and BiPAP overnight Continue baricitinib and Decadron IV Continue antibiotic therapy with ceftriaxone and azithromycin per city comptroller recommendation Continue self proning Continue full dose of anticoagulation Hypertension Blood pressure under control Continue home meds HLD continue statin Asthma continue steroid inhaler VS,Fishbone, I+O VS, Fishbone, I+O Laboratory Tests 01/07/21 05:23 Vital Signs Date Time Temp Pulse Resp B/P (MAP) Pulse Ox O2 Delivery O2 Flow Rate FiO2 01/07/21 08:42 HVNI-Vapotherm 40.0 100 01/07/21 04:00 97.0 61 25 108/55 (72) 92 I&O- Last 24 Hours up to 6 AM 01/07/21 05:59 Intake Total 1140 ml Output Total 1050 ml Balance 90 ml BEATRIZ AYERS DO Jan 07, 2021 10:17
--- NOTE | 2021-01-07 10:51 | IPNPDOC ---
Subjective Date Seen The patient was seen on 01/07/21. Subjective Chief Complaint/HPI Admits to feeling better in terms of dyspnea and cough. Denies of fever, chills, chest pain, palpitation, lower extremity swelling. General: Denies: Chills Constitutional: Denies: Chills, Fever ENT: Denies: Sore Throat Skin: Denies: Rash Pulmonary: Reports: Dyspnea; Denies: Cough Cardiovascular: Denies: Chest Pain, Palpitations, Orthopnea, Edema Gastrointestinal: Denies: Nausea, Vomiting, Abdominal Pain, Diarrhea Neurological: Denies: Weakness Objective Physical Examination General Exam: Positive: Alert, Cooperative, Mild Distress Eye Exam: Negative: Sclera icteric ENT Exam: Negative: Atraumatic Neck Exam: Positive: Supple Chest Exam: Positive: Rales (Bilateral) Heart Exam: Positive: Tachycardic Abdomen Exam: Positive: Normal bowel sounds, Soft Extremity Exam: Negative: Clubbing, Cyanosis, Edema Neuro Exam: Positive: Normal Speech Psych Exam: Positive: Mental status NL, Mood NL, Oriented x 3 Assessment /Plan Assessment This is a 62-year-old female with past medical history of carpal tunnel status post surgery admitted to the ICU with hypoxic respiratory failure secondary to COVID-19 pneumonia ARDS. 1. Hypoxic respiratory failure 2. COVID-19 pneumonia 3. ARDS Plan/VTE VTE Prophylaxis Ordered?: Yes Plan -Continue with Baricitinib and dexamethasone. She completed 5 days of remdesivir. She is intermittently alternating between Vapotherm and BiPAP. Very poor pulmonary reserve that she easily desaturate with any movement. Encourage self proning. Can DC antibiotics; ceftriaxone and azithromycin after she received total of 7 days. Lasix as needed. Critical care time excluding procedures 25 minutes. Disposition Continue ICU care. VS, I&O, 24H, Fishbone Vital Signs/I&O Vital Signs Date Time Temp Pulse Resp B/P (MAP) Pulse Ox O2 Delivery O2 Flow Rate FiO2 01/07/21 08:42 HVNI-Vapotherm 40.0 100 01/07/21 04:00 97.0 61 25 108/55 (72) 92 I&O- Last 24 Hours up to 6 AM 01/07/21 06:00 Intake Total 1140 ml Output Total 1050 ml Balance 90 ml Laboratory Data 24H LABS Laboratory Tests 2 01/07/21 05:23: Immature Granulocyte % (Auto) 1.3, Neutrophils (%) (Auto) 85.4H, Lymphocytes (%) (Auto) 7.7L, Monocytes (%) (Auto) 4.5, Eosinophils (%) (Auto) 0.9, Basophils (%) (Auto) 0.2, Neutrophils # (Auto) 10.1H, Lymphocytes # (Auto) 0.9L, Monocytes # (Auto) 0.5, Eosinophils # (Auto) 0.1, Basophils # (Auto) 0.0, Nucleated Red Blood Cells % (auto) 0.0, Anion Gap 2L, Glomerular Filtration Rate > 60.0, Calcium Level 9.0, Magnesium Level 2.3, Total Bilirubin 0.5, Aspartate Amino Transf (AST/SGOT) 18, Alanine Aminotransferase (ALT/SGPT) 42, Alkaline Phosphatase 62, Total Protein 6.8, Albumin 2.2L, Albumin/Globulin Ratio 0.5L CBC/BMP Laboratory Tests 01/07/21 05:23 Microbiology Microbiology 01/01/21 Blood Culture - Final, Complete NO GROWTH AFTER 5 DAYS 01/01/21 Blood Culture - Final, Complete NO GROWTH AFTER 5 DAYS LINCOLN DURON MD Jan 07, 2021 10:51
[2021-01-07 14:00] VITALS: BP 117/63
[2021-01-07 16:00] VITALS: BP 123/61
[2021-01-07] MEDS: AZITHROMYCIN INJ 500 MG, VIAL MATE ADAPTER 1 EACH in NS 250 ML IV SCH (19:19)
[2021-01-07 20:00] VITALS: BP 131/70
[2021-01-07] MEDS: METOPROLOL SUCC *XL* 25MG TAB (TopROL *XL*) PO SCH (20:27)
[2021-01-07] MEDS: cefTRIAXone SOD 1 GM in D5W MINI-BAG PLUS 50 ML IV SCH (20:27)
[2021-01-07] MEDS: PRIMIDONE 25MG PER 1/2 TABLET PO SCH (20:28)
[2021-01-07] MEDS: ATORVASTATIN 10 MG TAB PO SCH (20:28)
[2021-01-07] MEDS: MAGNESIUM OXIDE 400MG TAB (MAG-OX) PO SCH (20:28)
[2021-01-08] VITALS: BP 166/79
[2021-01-08 04:00] VITALS: BP 146/66
[2021-01-08 05:44] LABS: BASO % 0.1 % (0.0-1.0); EOS # 0.2 10^3/uL (0.0-0.5); EOS % 1.8 % (0.0-3.0); HEMATOCRIT 39.4 % (36.0-47.0); HEMOGLOBIN 12.8 g/dl (12.0-15.5); LYMPH # 0.9 10^3/uL (1.5-5.0); LYMPH % 8.2 % (24.0-44.0); MEAN CORPUSCULAR HEMOGLOBIN 26.2 pg (27.0-33.0); MEAN CORPUSCULAR HGB CONC 32.5 g/dl (32.0-36.5); MEAN CORPUSCULAR VOLUME 80.7 fl (80.0-96.0); MONO # 0.4 10^3/uL (0.0-0.8); MONO % 3.5 % (2.0-8.0); NEUTROPHILS # 9.5 10^3/uL (1.5-8.5); NEUTROPHILS % 84.4 % (36.0-66.0); PLATELET COUNT, AUTOMATED 420 10^3/uL (150-450); RED BLOOD COUNT 4.88 10^6/uL (4.00-5.40); WHITE BLOOD COUNT 11.3 10^3/uL (4.0-10.0)
[2021-01-08 06:08] LABS: ALBUMIN 2.1 GM/DL (3.2-5.2); ALT/SGPT 41 U/L (12-78); BILIRUBIN,TOTAL 0.5 MG/DL (0.2-1.0); BLOOD UREA NITROGEN 21 MG/DL (7-18); CALCIUM LEVEL 8.7 MG/DL (8.8-10.2); CARBON DIOXIDE LEVEL 34 MEQ/L (21-32); CHLORIDE LEVEL 102 MEQ/L (98-107); CREATININE FOR GFR 0.56 MG/DL (0.55-1.30); GLOMERULAR FILTRATION RATE > 60.0 (>45); GLUCOSE, FASTING 79 MG/DL (70-100); MAGNESIUM LEVEL 2.1 MG/DL (1.8-2.4); POTASSIUM SERUM 4.6 MEQ/L (3.5-5.1); SODIUM LEVEL 137 MEQ/L (136-145); TOTAL PROTEIN 6.7 GM/DL (6.4-8.2)
[2021-01-08 07:30] VITALS: BP 142/64
[2021-01-08] MEDS: FLUTICASONE HFA 110 MCG 12 GM INHALER (FLOVENT) INH SCH ×2 (08:49→21:00)
--- NOTE | 2021-01-08 09:54 | IPNPDOC ---
Text Note Date of Service The patient was seen on 01/08/21. NOTE Subjective: No any acute events overnight. No fever or chills Objective: GENERAL APPEARANCE: NAD HEENT: no scleral icterus, no JVD, EOMI CARDIOVASCULAR: S1S2 LUNGS: CTA ABDOMEN: soft & not tender w palpation MUSCULOSKELETAL: no cyanosis, no swelling INTEGUMENT: no generalized pallor NEUROLOGICAL: cranial nerve function from 2-12 intact, follows commands, speech not dysarthric Assessment and plan: This is a 65 y/o female with a pmh of htn and hld who presents to us as a direct transfer from [facility] for management of hypoxia 2/2 covid pneumonia COVID-19 pneumonia/ARDS/ Completed course of remdesivir Continue Vapotherm in the daytime and BiPAP overnight Continue baricitinib and Decadron IV DC antibiotic therapy, procalcitonin negative Continue self proning Continue full dose of anticoagulation Hypertension Blood pressure under control Continue home meds HLD continue statin Asthma continue steroid inhaler VS,Fishbone, I+O VS, Fishbone, I+O Laboratory Tests 01/08/21 05:34 Vital Signs Date Time Temp Pulse Resp B/P (MAP) Pulse Ox O2 Delivery O2 Flow Rate FiO2 01/08/21 07:49 90 01/08/21 07:30 99.0 71 26 142/64 (90) 88 NIPPV (BIPAP/CPAP) 01/07/21 20:00 40.0 I&O- Last 24 Hours up to 6 AM 01/08/21 06:00 Intake Total 1775 ml Output Total 2175 ml Balance -400 ml BEATRIZ AYERS DO Jan 08, 2021 09:54
[2021-01-08] MEDS: ENOXAPARIN 60MG/0.6ML SYRINGE (J1650 PER 10MG) SC SCH ×2 (09:57→20:59)
[2021-01-08] MEDS: ASPIRIN 81MG ENTERIC TABLET PO SCH (09:58)
[2021-01-08] MEDS: dexameTHASONE 20MG/5ML VIAL (J1100 PER 1MG) IV SCH (09:58)
[2021-01-08] MEDS: BARICITINIB 2MG TABLET (OLUMIANT) FOR EUA PO SCH (09:58)
[2021-01-08] MEDS: ACETAMINOPHEN 500 MG TAB PO PRN (09:59)
--- NOTE | 2021-01-08 11:06 | IPNPDOC ---
Subjective Date Seen The patient was seen on 01/08/21. Subjective Chief Complaint/HPI Patient has no complaint. She denies of fever, chills, cough, chest pain, palpitation. General: Denies: Chills Constitutional: Denies: Chills, Fever Eyes: Denies: Pain ENT: Denies: Sore Throat Skin: Denies: Rash Pulmonary: Reports: Dyspnea; Denies: Cough Cardiovascular: Denies: Chest Pain, Palpitations, Orthopnea Gastrointestinal: Denies: Nausea, Vomiting, Diarrhea Neurological: Denies: Weakness Objective Physical Examination General Exam: Positive: Alert, Cooperative, Mild Distress Eye Exam: Negative: Sclera icteric ENT Exam: Negative: Atraumatic Neck Exam: Positive: Supple Chest Exam: Positive: Rales (Bilateral) Heart Exam: Positive: Tachycardic Abdomen Exam: Positive: Normal bowel sounds, Soft Extremity Exam: Negative: Clubbing, Cyanosis, Edema Neuro Exam: Positive: Normal Speech Psych Exam: Positive: Mental status NL, Mood NL, Oriented x 3 Assessment /Plan Assessment This is a 62-year-old female with past medical history of carpal tunnel status post surgery admitted to the ICU with hypoxic respiratory failure secondary to COVID-19 pneumonia ARDS. 1. Hypoxic respiratory failure 2. COVID-19 pneumonia 3. ARDS Plan/VTE VTE Prophylaxis Ordered?: Yes Plan -To complete total 7 days of empiric abx/ceft/azithro. -Continue with Baricitinib and dexamenthasone. Completed 5 days of remdesivir. -Alternating between vapotherm and BiPAP. Respiratory status is [place] but she's already DNR/DNI. -Continue with self-proning while in bed. -May consider giving 1 dose lasix tomorrow. Total Critical care time excluding procedure is 25 minutes. Disposition continue ICU care. VS, I&O, 24H, Fishbone Vital Signs/I&O Vital Signs Date Time Temp Pulse Resp B/P (MAP) Pulse Ox O2 Delivery O2 Flow Rate FiO2 01/08/21 07:49 90 01/08/21 07:30 99.0 71 26 142/64 (90) 88 NIPPV (BIPAP/CPAP) 01/07/21 20:00 40.0 I&O- Last 24 Hours up to 6 AM 01/08/21 06:00 Intake Total 1775 ml Output Total 2175 ml Balance -400 ml Laboratory Data 24H LABS Laboratory Tests 2 01/08/21 05:34: Immature Granulocyte % (Auto) 2.0, Neutrophils (%) (Auto) 84.4H, Lymphocytes (%) (Auto) 8.2L, Monocytes (%) (Auto) 3.5, Eosinophils (%) (Auto) 1.8, Basophils (%) (Auto) 0.1, Neutrophils # (Auto) 9.5H, Lymphocytes # (Auto) 0.9L, Monocytes # (Auto) 0.4, Eosinophils # (Auto) 0.2, Basophils # (Auto) 0.0, Nucleated Red Blood Cells % (auto) 0.0, Anion Gap 1L, Glomerular Filtration Rate > 60.0, Calcium Level 8.7L, Magnesium Level 2.1, Total Bilirubin 0.5, Aspartate Amino Transf (AST/SGOT) 16, Alanine Aminotransferase (ALT/SGPT) 41, Alkaline Phosphatase 60, Total Protein 6.7, Albumin 2.1L, Albumin/Globulin Ratio 0.5L CBC/BMP Laboratory Tests 01/08/21 05:34 Microbiology Microbiology 01/01/21 Blood Culture - Final, Complete NO GROWTH AFTER 5 DAYS 01/01/21 Blood Culture - Final, Complete NO GROWTH AFTER 5 DAYS LINCOLN DURON MD Jan 08, 2021 11:06
[2021-01-08 12:00] VITALS: BP 109/59
[2021-01-08 16:00] VITALS: BP 114/57
[2021-01-08 20:00] VITALS: BP 135/59
[2021-01-08] MEDS: ATORVASTATIN 10 MG TAB PO SCH (20:59)
[2021-01-08] MEDS: MAGNESIUM OXIDE 400MG TAB (MAG-OX) PO SCH (20:59)
[2021-01-08] MEDS: PRIMIDONE 25MG PER 1/2 TABLET PO SCH (21:00)
[2021-01-08] MEDS: METOPROLOL SUCC *XL* 25MG TAB (TopROL *XL*) PO SCH (21:00)
[2021-01-09] VITALS (7 sets, daily range): BP systolic 98–150; BP diastolic 54–70
[2021-01-09 06:08] LABS: BASO % 0.2 % (0.0-1.0); EOS # 0.1 10^3/uL (0.0-0.5); EOS % 0.6 % (0.0-3.0); HEMATOCRIT 40.7 % (36.0-47.0); HEMOGLOBIN 13.2 g/dl (12.0-15.5); LYMPH # 0.8 10^3/uL (1.5-5.0); LYMPH % 7.1 % (24.0-44.0); MEAN CORPUSCULAR HEMOGLOBIN 26.9 pg (27.0-33.0); MEAN CORPUSCULAR HGB CONC 32.4 g/dl (32.0-36.5); MEAN CORPUSCULAR VOLUME 82.9 fl (80.0-96.0); MONO # 0.3 10^3/uL (0.0-0.8); MONO % 2.9 % (2.0-8.0); NEUTROPHILS # 9.4 10^3/uL (1.5-8.5); NEUTROPHILS % 86.7 % (36.0-66.0); PLATELET COUNT, AUTOMATED 450 10^3/uL (150-450); RED BLOOD COUNT 4.91 10^6/uL (4.00-5.40); WHITE BLOOD COUNT 10.9 10^3/uL (4.0-10.0)
[2021-01-09 06:28] LABS: ALBUMIN 2.1 GM/DL (3.2-5.2); ALT/SGPT 77 U/L (12-78); BILIRUBIN,TOTAL 0.4 MG/DL (0.2-1.0); BLOOD UREA NITROGEN 27 MG/DL (7-18); CALCIUM LEVEL 9.4 MG/DL (8.8-10.2); CARBON DIOXIDE LEVEL 31 MEQ/L (21-32); CHLORIDE LEVEL 103 MEQ/L (98-107); CREATININE FOR GFR 0.57 MG/DL (0.55-1.30); GLOMERULAR FILTRATION RATE > 60.0 (>45); GLUCOSE, FASTING 102 MG/DL (70-100); MAGNESIUM LEVEL 2.4 MG/DL (1.8-2.4); POTASSIUM SERUM 4.7 MEQ/L (3.5-5.1); SODIUM LEVEL 137 MEQ/L (136-145); TOTAL PROTEIN 6.8 GM/DL (6.4-8.2)
[2021-01-09] MEDS: FLUTICASONE HFA 110 MCG 12 GM INHALER (FLOVENT) INH SCH ×2 (07:43→20:00)
[2021-01-09] MEDS: ENOXAPARIN 60MG/0.6ML SYRINGE (J1650 PER 10MG) SC SCH ×2 (08:59→19:50)
[2021-01-09] MEDS: dexameTHASONE 20MG/5ML VIAL (J1100 PER 1MG) IV SCH (08:59)
[2021-01-09] MEDS: ASPIRIN 81MG ENTERIC TABLET PO SCH (09:00)
[2021-01-09] MEDS: BARICITINIB 2MG TABLET (OLUMIANT) FOR EUA PO SCH (09:00)
--- NOTE | 2021-01-09 10:27 | IPNPDOC ---
Text Note Date of Service The patient was seen on 01/09/21. NOTE Subjective: No any acute events overnight. Patient stated that she feels bet ter, her oxygen requirements slightly decreased Objective: GENERAL APPEARANCE: NAD HEENT: no scleral icterus, no JVD, EOMI CARDIOVASCULAR: S1S2 LUNGS: CTA ABDOMEN: soft & not tender w palpation MUSCULOSKELETAL: no cyanosis, no swelling INTEGUMENT: no generalized pallor NEUROLOGICAL: cranial nerve function from 2-12 intact, follows commands, speech not dysarthric Assessment and plan: This is a 65 y/o female with a pmh of htn and hld who presents to us as a direct transfer from [facility] for management of hypoxia 2/2 covid pneumonia COVID-19 pneumonia/ARDS/ Completed course of remdesivir Continue Vapotherm in the daytime and BiPAP overnight Continue baricitinib and Decadron IV procalcitonin negative Continue self proning Continue full dose of anticoagulation Hypertension Blood pressure under control Continue home meds HLD continue statin Asthma continue steroid inhaler VS,Fishbone, I+O VS, Fishbone, I+O Laboratory Tests 01/09/21 05:38 Vital Signs Date Time Temp Pulse Resp B/P (MAP) Pulse Ox O2 Delivery O2 Flow Rate FiO2 01/09/21 09:00 76 26 91 HVNI-Vapotherm 35.0 90 01/09/21 08:00 97.5 136/63 (87) I&O- Last 24 Hours up to 6 AM 01/09/21 06:00 Intake Total 1550 ml Output Total 1950 ml Balance -400 ml BEATRIZ AYERS DO Jan 09, 2021 10:27
[2021-01-09] MEDS ORDERED: FUROSEMIDE 40MG/4ML VIAL (J1940) IV ONE (11:30)
--- NOTE | 2021-01-09 11:31 | IPNPDOC ---
Subjective Date Seen The patient was seen on 01/09/21. Subjective Chief Complaint/HPI Patient admits to experiencing shortness of breath but improved progressively. She denies of fever, chills, chest pain, palpitation. General: Denies: Chills Constitutional: Denies: Chills, Fever Eyes: Denies: Pain ENT: Denies: Head Aches, Sore Throat Skin: Denies: Rash Pulmonary: Reports: Dyspnea; Denies: Cough Cardiovascular: Denies: Chest Pain, Palpitations, Orthopnea Gastrointestinal: Denies: Nausea, Vomiting, Abdominal Pain, Diarrhea Neurological: Denies: Weakness Objective Physical Examination General Exam: Positive: Alert, Cooperative, Mild Distress Eye Exam: Negative: Sclera icteric ENT Exam: Negative: Atraumatic Neck Exam: Positive: Supple Chest Exam: Positive: Rales (Bilateral) Heart Exam: Positive: Tachycardic Abdomen Exam: Positive: Normal bowel sounds, Soft Extremity Exam: Positive: Edema (+1 pitting edema up to the mid leyva level); Negative: Clubbing, Cyanosis Neuro Exam: Positive: Normal Speech Psych Exam: Positive: Mental status NL, Mood NL, Oriented x 3 Assessment /Plan Assessment This is a 62-year-old female with past medical history of carpal tunnel status post surgery admitted to the ICU with hypoxic respiratory failure secondary to COVID-19 pneumonia ARDS. 1. Hypoxic respiratory failure 2. COVID-19 pneumonia 3. ARDS Plan/VTE VTE Prophylaxis Ordered?: Yes Plan -Continue with alternating Vapotherm and BiPAP. -Finish 7 days of empiric antibiotics. Continue with Baricitinib and Decadrone. Completed Remdesivir. -Encourage self proning. -We will give 1 dose of Lasix today. Critical care time excluding procedures is 25 minutes Disposition Continue ICU care. VS, I&O, 24H, Fishbone Vital Signs/I&O Vital Signs Date Time Temp Pulse Resp B/P (MAP) Pulse Ox O2 Delivery O2 Flow Rate FiO2 01/09/21 09:00 76 26 91 HVNI-Vapotherm 35.0 90 01/09/21 08:00 97.5 136/63 (87) I&O- Last 24 Hours up to 6 AM 01/09/21 06:00 Intake Total 1550 ml Output Total 1950 ml Balance -400 ml Laboratory Data 24H LABS Laboratory Tests 2 01/09/21 05:38: Immature Granulocyte % (Auto) 2.5, Neutrophils (%) (Auto) 86.7H, Lymphocytes (%) (Auto) 7.1L, Monocytes (%) (Auto) 2.9, Eosinophils (%) (Auto) 0.6, Basophils (%) (Auto) 0.2, Neutrophils # (Auto) 9.4H, Lymphocytes # (Auto) 0.8L, Monocytes # ( Auto) 0.3, Eosinophils # (Auto) 0.1, Basophils # (Auto) 0.0, Nucleated Red Blood Cells % (auto) 0.0, Anion Gap 3L, Glomerular Filtration Rate > 60.0, Calcium Level 9.4, Magnesium Level 2.4, Total Bilirubin 0.4, Aspartate Amino Transf (AST/SGOT) 26, Alanine Aminotransferase (ALT/SGPT) 77, Alkaline Phosphatase 65, Total Protein 6.8, Albumin 2.1L, Albumin/Globulin Ratio 0.4L CBC/BMP Laboratory Tests 01/09/21 05:38 Microbiology Microbiology 01/01/21 Blood Culture - Final, Complete NO GROWTH AFTER 5 DAYS 01/01/21 Blood Culture - Final, Complete NO GROWTH AFTER 5 DAYS LINCOLN DURON MD Jan 09, 2021 11:31
[2021-01-09] MEDS: ATORVASTATIN 10 MG TAB PO SCH (19:49)
[2021-01-09] MEDS: MAGNESIUM OXIDE 400MG TAB (MAG-OX) PO SCH (19:49)
[2021-01-09] MEDS: PRIMIDONE 25MG PER 1/2 TABLET PO SCH (19:50)
[2021-01-09] MEDS: METOPROLOL SUCC *XL* 25MG TAB (TopROL *XL*) PO SCH (19:50)
[2021-01-10] VITALS: BP 133/65
[2021-01-10 07:40] LABS: BASO # 0.1 10^3/uL (0.0-0.2); BASO % 0.3 % (0.0-1.0); EOS # 0.4 10^3/uL (0.0-0.5); EOS % 2.3 % (0.0-3.0); HEMATOCRIT 37.7 % (36.0-47.0); HEMOGLOBIN 12.3 g/dl (12.0-15.5); LYMPH # 1.3 10^3/uL (1.5-5.0); LYMPH % 8.2 % (24.0-44.0); MEAN CORPUSCULAR HEMOGLOBIN 26.5 pg (27.0-33.0); MEAN CORPUSCULAR HGB CONC 32.6 g/dl (32.0-36.5); MEAN CORPUSCULAR VOLUME 81.3 fl (80.0-96.0); MONO # 0.6 10^3/uL (0.0-0.8); MONO % 3.5 % (2.0-8.0); NEUTROPHILS # 13.6 10^3/uL (1.5-8.5); NEUTROPHILS % 83.2 % (36.0-66.0); PLATELET COUNT, AUTOMATED 469 10^3/uL (150-450); RED BLOOD COUNT 4.64 10^6/uL (4.00-5.40); WHITE BLOOD COUNT 16.4 10^3/uL (4.0-10.0)
[2021-01-10 08:00] VITALS: BP 105/59
[2021-01-10 08:09] LABS: ALBUMIN 2.1 GM/DL (3.2-5.2); ALT/SGPT 128 U/L (12-78); BILIRUBIN,TOTAL 0.4 MG/DL (0.2-1.0); BLOOD UREA NITROGEN 37 MG/DL (7-18); CALCIUM LEVEL 8.9 MG/DL (8.8-10.2); CARBON DIOXIDE LEVEL 33 MEQ/L (21-32); CHLORIDE LEVEL 100 MEQ/L (98-107); CREATININE FOR GFR 0.57 MG/DL (0.55-1.30); GLOMERULAR FILTRATION RATE > 60.0 (>45); GLUCOSE, FASTING 77 MG/DL (70-100); MAGNESIUM LEVEL 2.2 MG/DL (1.8-2.4); POTASSIUM SERUM 5.4 MEQ/L (3.5-5.1); SODIUM LEVEL 136 MEQ/L (136-145); TOTAL PROTEIN 6.2 GM/DL (6.4-8.2)
[2021-01-10] MEDS: FLUTICASONE HFA 110 MCG 12 GM INHALER (FLOVENT) INH SCH ×2 (08:29→20:19)
[2021-01-10] MEDS: ASPIRIN 81MG ENTERIC TABLET PO SCH (09:37)
[2021-01-10] MEDS: ENOXAPARIN 60MG/0.6ML SYRINGE (J1650 PER 10MG) SC SCH ×2 (09:37→20:11)
[2021-01-10] MEDS: dexameTHASONE 20MG/5ML VIAL (J1100 PER 1MG) IV SCH (09:38)
[2021-01-10] MEDS: BARICITINIB 2MG TABLET (OLUMIANT) FOR EUA PO SCH (09:38)
--- NOTE | 2021-01-10 11:17 | IPNPDOC ---
Text Note Date of Service The patient was seen on 01/10/21. NOTE Subjective: No any acute events overnight. Patient's oxygen requirements imp roved currently she is on 50 L on Vapotherm and Fio2 70% Objective: GENERAL APPEARANCE: NAD HEENT: no scleral icterus, no JVD, EOMI CARDIOVASCULAR: S1S2 LUNGS: Diminished lung sounds bilaterally ABDOMEN: soft & not tender w palpation MUSCULOSKELETAL: no cyanosis, no swelling INTEGUMENT: no generalized pallor NEUROLOGICAL: cranial nerve function from 2-12 intact, follows commands, speech not dysarthric Assessment and plan: This is a 65 y/o female with a pmh of htn and hld who presents to us as a direct transfer from [facility] for management of hypoxia 2/2 covid pneumonia COVID-19 pneumonia/ARDS/acute hypoxemic respiratory failure Completed course of remdesivir Continue Vapotherm in the daytime and BiPAP overnight Continue baricitinib and Decadron IV procalcitonin negative Continue self proning Continue full dose of anticoagulation Hypertension Blood pressure under control Continue home meds HLD continue statin Asthma continue steroid inhaler Hyperkalemia Patient received dose of Lasix 40 mg IV We will give the dose of Kayexalate We will repeat BMP Leukocytosis Could be secondary to steroids Patient has been afebrile, not tachycardic We will check procalcitonin Patient completed treatment with antibiotics VS,Fishbone, I+O VS, Fishbone, I+O Laboratory Tests 01/10/21 07:23 Vital Signs Date Time Temp Pulse Resp B/P (MAP) Pulse Ox O2 Delivery O2 Flow Rate FiO2 01/10/21 09:59 85 HVNI-Vapotherm 30.0 70 01/10/21 08:00 98.5 77 28 105/59 (74) I&O- Last 24 Hours up to 6 AM 01/10/21 06:00 Intake Total 1800 ml Output Total 2975 ml Balance -1175 ml BEATRIZ AYERS DO Jan 10, 2021 11:17
[2021-01-10] MEDS ORDERED: SOD POLYSTYRENE SULFONATE SUSP 15 GM/60 ML UD PO ONE (11:30)
--- NOTE | 2021-01-10 11:55 | IPNPDOC ---
Subjective Date Seen The patient was seen on 01/10/21. Subjective Chief Complaint/HPI Patient states she is symptomatically improving. She does experience improved shortness of breath. However, she denies fever, chills, cough, chest pain or palpitation. General: Denies: Chills Constitutional: Denies: Chills, Fever ENT: Denies: Head Aches, Sore Throat Skin: Denies: Rash, Lesions Pulmonary: Reports: Dyspnea; Denies: Cough, Pleuritic Chest Pain Cardiovascular: Denies: Chest Pain, Palpitations, Orthopnea, Paroxysmal Noc. Dyspnea Gastrointestinal: Denies: Nausea, Abdominal Pain, Diarrhea Neurological: Denies: Weakness, Numbness Objective Physical Examination General Exam: Positive: Alert, Cooperative, Mild Distress Eye Exam: Negative: Sclera icteric ENT Exam: Negative: Atraumatic Neck Exam: Positive: Supple Chest Exam: Positive: Rales (Bilateral) Heart Exam: Positive: Tachycardic Abdomen Exam: Positive: Normal bowel sounds, Soft Extremity Exam: Positive: Edema; Negative: Clubbing, Cyanosis Neuro Exam: Positive: Normal Speech Psych Exam: Positive: Mental status NL, Mood NL, Oriented x 3 Assessment /Plan Assessment This is a 62-year-old female with past medical history of carpal tunnel status post surgery admitted to the ICU with hypoxic respiratory failure secondary to COVID-19 pneumonia ARDS. 1. Hypoxic respiratory failure 2. COVID-19 pneumonia 3. ARDS Plan/VTE VTE Prophylaxis Ordered?: Yes Plan -She has completed broad-spectrum antibiotic and remdesivir. -Continue with Baricitinib and dexamethasone. -She is alternating between Vapotherm and BiPAP at night. -She did respond to one-time dose of Lasix yesterday. We will intermittently give her Lasix. -Continue to encourage self proning when she is in bed. Disposition Continue ICU care. VS, I&O, 24H, Fishbone Vital Signs/I&O Vital Signs Date Time Temp Pulse Resp B/P (MAP) Pulse Ox O2 Delivery O2 Flow Rate FiO2 01/10/21 09:59 85 HVNI-Vapotherm 30.0 70 01/10/21 08:00 98.5 77 28 105/59 (74) I&O- Last 24 Hours up to 6 AM0 01/10/21 06:00 Intake Total 1800 ml Output Total 2975 ml Balance -1175 ml Laboratory Data 24H LABS Laboratory Tests 2 01/10/21 07:23: Immature Granulocyte % (Auto) 2.5, Neutrophils (%) (Auto) 83.2H, Lymphocytes (%) (Auto) 8.2L, Monocytes (%) (Auto) 3.5, Eosinophils (%) (Auto) 2.3, Basophils (%) (Auto) 0.3, Neutrophils # (Auto) 13.6H, Lymphocytes # (Auto) 1.3L, Monocytes # (Auto) 0.6, Eosinophils # (Auto) 0.4, Basophils # (Auto) 0.1, Nucleated Red Blood Cells % (auto) 0.0, Anion Gap 3L, Glomerular Filtration Rate > 60.0, Calcium Level 8.9, Magnesium Level 2.2, Total Bilirubin 0.4, Aspartate Amino Transf (AST/SGOT) 46H, Alanine Aminotransferase (ALT/SGPT) 128H, Alkaline Phosphatase 62, Total Protein 6.2L, Albumin 2.1L, Albumin/Globulin Ratio 0.5L CBC/BMP Laboratory Tests 01/10/21 07:23 Microbiology Microbiology 01/01/21 Blood Culture - Final, Complete NO GROWTH AFTER 5 DAYS 01/01/21 Blood Culture - Final, Complete NO GROWTH AFTER 5 DAYS LINCOLN DURON MD Jan 10, 2021 11:55
[2021-01-10 12:00] VITALS: BP 106/57
[2021-01-10 14:40] LABS: BLOOD UREA NITROGEN 32 MG/DL (7-18); CARBON DIOXIDE LEVEL 29 MEQ/L (21-32); CHLORIDE LEVEL 100 MEQ/L (98-107); CREATININE FOR GFR 0.67 MG/DL (0.55-1.30); GLOMERULAR FILTRATION RATE > 60.0 (>45); GLUCOSE, FASTING 176 MG/DL (70-100); POTASSIUM SERUM 4.9 MEQ/L (3.5-5.1); SODIUM LEVEL 135 MEQ/L (136-145)
[2021-01-10 16:00] VITALS: BP 114/55
[2021-01-10 20:00] VITALS: BP 120/66
[2021-01-10] MEDS: MAGNESIUM OXIDE 400MG TAB (MAG-OX) PO SCH (20:11)
[2021-01-10] MEDS: METOPROLOL SUCC *XL* 25MG TAB (TopROL *XL*) PO SCH (20:12)
[2021-01-10] MEDS: ACETAMINOPHEN 500 MG TAB PO PRN (20:12)
[2021-01-10] MEDS: ATORVASTATIN 10 MG TAB PO SCH (20:14)
[2021-01-10] MEDS: PRIMIDONE 25MG PER 1/2 TABLET PO SCH (20:29)
[2021-01-11] VITALS: BP 124/62
[2021-01-11 04:00] VITALS: BP 99/55
[2021-01-11 04:32] LABS: BASO # 0.1 10^3/uL (0.0-0.2); BASO % 0.3 % (0.0-1.0); EOS # 0.1 10^3/uL (0.0-0.5); EOS % 0.6 % (0.0-3.0); HEMATOCRIT 29.9 % (36.0-47.0); LYMPH # 1.4 10^3/uL (1.5-5.0); LYMPH % 7.7 % (24.0-44.0); MEAN CORPUSCULAR HEMOGLOBIN 26.6 pg (27.0-33.0); MEAN CORPUSCULAR HGB CONC 32.4 g/dl (32.0-36.5); MEAN CORPUSCULAR VOLUME 82.1 fl (80.0-96.0); MONO # 0.6 10^3/uL (0.0-0.8); MONO % 3.1 % (2.0-8.0); NEUTROPHILS % 83.4 % (36.0-66.0); PLATELET COUNT, AUTOMATED 434 10^3/uL (150-450); RED BLOOD COUNT 3.64 10^6/uL (4.00-5.40); WHITE BLOOD COUNT 17.9 10^3/uL (4.0-10.0)
[2021-01-11 04:36] LABS: HEMOGLOBIN 9.7 g/dl (12.0-15.5)
[2021-01-11 04:57] LABS: ALBUMIN 1.9 GM/DL (3.2-5.2); ALT/SGPT 103 U/L (12-78); BILIRUBIN,TOTAL 0.3 MG/DL (0.2-1.0); BLOOD UREA NITROGEN 52 MG/DL (7-18); CALCIUM LEVEL 8.5 MG/DL (8.8-10.2); CARBON DIOXIDE LEVEL 30 MEQ/L (21-32); CHLORIDE LEVEL 99 MEQ/L (98-107); CREATININE FOR GFR 0.57 MG/DL (0.55-1.30); GLOMERULAR FILTRATION RATE > 60.0 (>45); GLUCOSE, FASTING 134 MG/DL (70-100); MAGNESIUM LEVEL 2.4 MG/DL (1.8-2.4); POTASSIUM SERUM 4.8 MEQ/L (3.5-5.1); SODIUM LEVEL 135 MEQ/L (136-145); TOTAL PROTEIN 5.3 GM/DL (6.4-8.2)
[2021-01-11 08:00] VITALS: BP 120/49
[2021-01-11] MEDS: FLUTICASONE HFA 110 MCG 12 GM INHALER (FLOVENT) INH SCH ×2 (08:41→20:03)
[2021-01-11] MEDS: ENOXAPARIN 60MG/0.6ML SYRINGE (J1650 PER 10MG) SC SCH ×2 (08:44→20:46)
[2021-01-11] MEDS: dexameTHASONE 20MG/5ML VIAL (J1100 PER 1MG) IV SCH (08:44)
[2021-01-11] MEDS: BARICITINIB 2MG TABLET (OLUMIANT) FOR EUA PO SCH (08:44)
[2021-01-11] MEDS: ASPIRIN 81MG ENTERIC TABLET PO SCH (08:44)
[2021-01-11 12:00] VITALS: BP 115/58
--- NOTE | 2021-01-11 13:59 | IPNPDOC ---
Text Note Date of Service The patient was seen on 01/11/21. NOTE Subjective: No any acute events overnight. No fever or chills Objective: GENERAL APPEARANCE: NAD HEENT: no scleral icterus, no JVD, EOMI CARDIOVASCULAR: S1S2 LUNGS: Diminished lung sounds bilaterally ABDOMEN: soft & not tender w palpation MUSCULOSKELETAL: no cyanosis, no swelling INTEGUMENT: no generalized pallor NEUROLOGICAL: cranial nerve function from 2-12 intact, follows commands, speech not dysarthric Assessment and plan: This is a 65 y/o female with a pmh of htn and hld who presents to us as a direct transfer from [facility] for management of hypoxia 2/2 covid pneumonia COVID-19 pneumonia/ARDS/acute hypoxemic respiratory failure Completed course of remdesivir Continue Vapotherm in the daytime and BiPAP overnight Continue baricitinib and Decadron IV procalcitonin negative on 01/10/2021 Continue self proning Continue full dose of anticoagulation Hypertension Blood pressure under control Continue home meds HLD continue statin Asthma continue steroid inhaler Hyperkalemia Resolved Leukocytosis Could be secondary to steroids Patient has been afebrile, not tachycardic. Continue to monitor procalcitonin negative Patient completed treatment with antibiotics VS,Fishbone, I+O VS, Fishbone, I+O Laboratory Tests 01/11/21 04:00 Vital Signs Date Time Temp Pulse Resp B/P (MAP) Pulse Ox O2 Delivery O2 Flow Rate FiO2 01/11/21 12:00 30.0 70 01/11/21 08:00 97.0 106 24 120/49 (72) 91 HVNI-Vapotherm I&O- Last 24 Hours up to 6 AM 01/11/21 05:59 Intake Total 2480 ml Output Total 1375 ml Balance 1105 ml BEATRIZ AYERS DO Jan 11, 2021 13:59
[2021-01-11 16:00] VITALS: BP 110/58
[2021-01-11 20:00] VITALS: BP 128/57
[2021-01-11] MEDS: PRIMIDONE 25MG PER 1/2 TABLET PO SCH (20:40)
[2021-01-11] MEDS: MAGNESIUM OXIDE 400MG TAB (MAG-OX) PO SCH (20:41)
[2021-01-11] MEDS: ATORVASTATIN 10 MG TAB PO SCH (20:41)
[2021-01-11] MEDS: METOPROLOL SUCC *XL* 25MG TAB (TopROL *XL*) PO SCH (20:45)
[2021-01-12] VITALS (17 sets, daily range): BP systolic 90–143; BP diastolic 44–95
[2021-01-12] MEDS ORDERED: CALCIUM CARBONATE 500 MG CHEW U/D PO ONE (01:20)
[2021-01-12 04:51] LABS: MEAN CORPUSCULAR VOLUME 81.7 fl (80.0-96.0); PLATELET COUNT, AUTOMATED 383 10^3/uL (150-450); RED BLOOD COUNT 2.41 10^6/uL (4.00-5.40); WHITE BLOOD COUNT 25.3 10^3/uL (4.0-10.0)
[2021-01-12 04:56] LABS: HEMATOCRIT 19.7 % (36.0-47.0); HEMOGLOBIN 6.5 g/dl (12.0-15.5)
[2021-01-12 05:14] LABS: EOSINOPHILS 1 % (0-3); LYMPHOCYTES 15 % (16-44); METAMYELOCYTES 1 % (0-0); MONOCYTES 2 % (0-5); NEUTROPHILS 80 % (28-66)
[2021-01-12 05:15] LABS: PLATELET ESTIMATE NORMAL (NORMAL)
[2021-01-12 05:16] LABS: SMUDGE CELLS 1+
[2021-01-12 05:21] LABS: ALBUMIN 1.6 GM/DL (3.2-5.2); ALT/SGPT 79 U/L (12-78); BILIRUBIN,TOTAL 0.2 MG/DL (0.2-1.0); BLOOD UREA NITROGEN 58 MG/DL (7-18); CALCIUM LEVEL 8.6 MG/DL (8.8-10.2); CARBON DIOXIDE LEVEL 30 MEQ/L (21-32); CHLORIDE LEVEL 100 MEQ/L (98-107); CREATININE FOR GFR 0.58 MG/DL (0.55-1.30); GLOMERULAR FILTRATION RATE > 60.0 (>45); GLUCOSE, FASTING 143 MG/DL (70-100); MAGNESIUM LEVEL 2.1 MG/DL (1.8-2.4); POTASSIUM SERUM 5.3 MEQ/L (3.5-5.1); SODIUM LEVEL 135 MEQ/L (136-145); TOTAL PROTEIN 4.7 GM/DL (6.4-8.2)
[2021-01-12 05:37] LABS: HEMOGLOBIN 6.2 g/dl (12.0-15.5)
[2021-01-12 06:07] LABS: PERCENT SATURATION 42.2 % (13.2-45.0)
[2021-01-12] MEDS: FLUTICASONE HFA 110 MCG 12 GM INHALER (FLOVENT) INH SCH ×2 (08:05→20:03)
[2021-01-12] MEDS: PANTOPRAZOLE 40MG VIAL (C9113 PER 1) IV SCH ×2 (08:45→21:03)
[2021-01-12] MEDS: BARICITINIB 2MG TABLET (OLUMIANT) FOR EUA PO SCH (08:45)
[2021-01-12] MEDS: dexameTHASONE 20MG/5ML VIAL (J1100 PER 1MG) IV SCH (08:45)
[2021-01-12] MEDS: ASPIRIN 81MG ENTERIC TABLET PO SCH (09:00)
--- NOTE | 2021-01-12 10:44 | IPNPDOC ---
Text Note Date of Service The patient was seen on 01/12/21. NOTE Subjective: Hemoglobin dropped to 6.2 overnight, stool was positive for blood. 1 unit of blood was ordered and I ordered another 1. Objective: GENERAL APPEARANCE: NAD HEENT: no scleral icterus, no JVD, EOMI CARDIOVASCULAR: S1S2 LUNGS: Diminished lung sounds bilaterally ABDOMEN: soft & not tender w palpation MUSCULOSKELETAL: no cyanosis, no swelling INTEGUMENT: no generalized pallor NEUROLOGICAL: cranial nerve function from 2-12 intact, follows commands, speech not dysarthric Assessment and plan: This is a 65 y/o female with a pmh of htn and hld who presents to us as a direct transfer from [facility] for management of hypoxia 2/2 covid pneumonia Acute anemia secondary to GI bleed Patient developed GI bleed with positive stool for occult blood 2 units of blood ordered H&H every 6 hours PPI IV twice daily COVID-19 pneumonia/ARDS/acute hypoxemic respiratory failure Completed course of remdesivir Continue Vapotherm in the daytime and BiPAP overnight Continue baricitinib and Decadron IV procalcitonin negative on 01/10/2021 Continue self proning Discontinue full dose of anticoagulation due to GI bleed Hypertension Blood pressure under control Continue home meds HLD continue statin Asthma continue steroid inhaler Hyperkalemia Kayexalate, furosemide 40 mg IV once Continue to monitor BMP Leukocytosis Could be secondary to steroids. Worsening today We will check procalcitonin and blood culture Patient has been afebrile, not tachycardic. Continue to monitor Previously patient completed treatment with antibiotics VS,Fishbone, I+O VS, Fishbone, I+O Laboratory Tests 01/12/21 04:17 01/12/21 05:24 Vital Signs Date Time Temp Pulse Resp B/P (MAP) Pulse Ox O2 Delivery O2 Flow Rate FiO2 01/12/21 09:45 96.0 98 30 91/50 HVNI-Vapotherm 35.0 01/12/21 09:16 70 01/12/21 08:00 99 I&O- Last 24 Hours up to 6 AM 01/12/21 06:00 Intake Total 3590 ml Output Total 2325 ml Balance 1265 ml BEATRIZ AYERS DO Jan 12, 2021 10:44
--- NOTE | 2021-01-12 10:50 | IPNPDOC ---
Subjective Date Seen The patient was seen on 01/12/21. Subjective Chief Complaint/HPI Patient does not complain of anything today. She denies of fever, chills, shortness of breath, cough. Constitutional: Denies: Chills, Fever ENT: Denies: Head Aches Skin: Denies: Rash Pulmonary: Denies: Dyspnea, Cough Cardiovascular: Denies: Chest Pain, Palpitations, Orthopnea Gastrointestinal: Denies: Nausea, Vomiting, Diarrhea Neurological: Denies: Weakness Objective Physical Examination General Exam: Positive: Alert, Cooperative Eye Exam: Negative: Sclera icteric ENT Exam: Negative: Atraumatic Neck Exam: Positive: Supple Chest Exam: Positive: Clear to auscultation Heart Exam: Positive: Rate Normal Abdomen Exam: Positive: Normal bowel sounds, Soft; Negative: Tenderness Extremity Exam: Negative: Clubbing, Cyanosis Neuro Exam: Positive: Normal Speech Psych Exam: Positive: Mental status NL, Mood NL, Oriented x 3 Assessment /Plan Assessment This is a 62-year-old female with past medical history of carpal tunnel status post surgery admitted to the ICU with hypoxic respiratory failure secondary to COVID-19 pneumonia ARDS. 1. Hypoxic respiratory failure 2. COVID-19 pneumonia 3. ARDS 4. Acute blood loss anemia Plan/VTE VTE Prophylaxis Ordered?: Yes Plan -She has completed course of empiric antibiotic and remdesivir. Continue with D ecadron and Baricitinib. She is currently on Vapotherm and BiPAP with setting has not been changed for many days. -Currently getting blood transfusion. Source of blood loss likely from GI tract. If she continues to have downtrend of hemoglobin despite multiple transfusion, she will need to have GI evaluation. Disposition Continue ICU care. VS, I&O, 24H, Rayshawnbone Vital Signs/I&O Vital Signs Date Time Temp Pulse Resp B/P (MAP) Pulse Ox O2 Delivery O2 Flow Rate FiO2 01/12/21 09:45 96.0 98 30 91/50 HVNI-Vapotherm 35.0 01/12/21 09:16 70 01/12/21 08:00 99 I&O- Last 24 Hours up to 6 AM 01/12/21 06:00 Intake Total 3590 ml Output Total 2325 ml Balance 1265 ml Laboratory Data 24H LABS Laboratory Tests 2 01/12/21 04:17: Immature Granulocyte % (Auto) , Neutrophils (%) (Auto) , Nucleated Red Blood C ells % (auto) 0.2H, Neutrophils 80H, Band Neutrophils 1, Lymphocytes (Manual) 15L, Monocytes (Manual) 2, Eosinophils (Manual) 1, Metamyelocytes 1H, Smudge Cells 1+, Platelet Estimate NORMAL, Anion Gap 5L, Glomerular Filtration Rate > 60.0, Calcium Level 8.6L, Magnesium Level 2.1, Total Bilirubin 0.2, Aspartate Amino Transf (AST/SGOT) 19, Alanine Aminotransferase (ALT/SGPT) 79H, Alkaline Phosphatase 37L, Total Protein 4.7L, Albumin 1.6L, Albumin/Globulin Ratio 0.5L 01/12/21 05:24: Iron Level 84, Total Iron Binding Capacity 199L, Transferrin % Saturation 42.2, Ferritin 108 CBC/BMP Laboratory Tests 01/12/21 04:17 01/12/21 05:24 Microbiology Microbiology 01/12/21 Stool Occult Blood (AGUS) - Final, Complete LINCOLN DURON MD Jan 12, 2021 10:50
[2021-01-12] MEDS ORDERED: CALCIUM GLUCONATE 1,000 MG in D5W MINI-BAG PLUS 100 ML IV ONE (11:10)
[2021-01-12] MEDS ORDERED: FUROSEMIDE 40MG/4ML VIAL (J1940) IV ONE (11:10)
[2021-01-12] MEDS ORDERED: SOD POLYSTYRENE SULFONATE SUSP 15 GM/60 ML UD PO ONE (11:10)
[2021-01-12 12:04] LABS: FOLATE 7.3 NG/ML (>5.4)
[2021-01-12 15:55] LABS: HEMATOCRIT 29.4 % (36.0-47.0)
[2021-01-12 19:42] LABS: HEMATOCRIT 26.7 % (36.0-47.0); HEMOGLOBIN 9.2 g/dl (12.0-15.5)
[2021-01-12] MEDS: PRIMIDONE 25MG PER 1/2 TABLET PO SCH (21:03)
[2021-01-12] MEDS: ATORVASTATIN 10 MG TAB PO SCH (21:05)
[2021-01-12] MEDS: MAGNESIUM OXIDE 400MG TAB (MAG-OX) PO SCH (21:06)
[2021-01-12] MEDS: METOPROLOL SUCC *XL* 25MG TAB (TopROL *XL*) PO SCH (21:06)
[2021-01-13] VITALS (9 sets, daily range): BP systolic 117–156; BP diastolic 50–65
[2021-01-13 01:12] LABS: HEMATOCRIT 25.6 % (36.0-47.0); HEMOGLOBIN 8.8 g/dl (12.0-15.5)
[2021-01-13 07:46] LABS: HEMATOCRIT 24.1 % (36.0-47.0); HEMOGLOBIN 8.2 g/dl (12.0-15.5); MEAN CORPUSCULAR HEMOGLOBIN 28.4 pg (27.0-33.0); MEAN CORPUSCULAR VOLUME 83.4 fl (80.0-96.0); PLATELET COUNT, AUTOMATED 309 10^3/uL (150-450); RED BLOOD COUNT 2.89 10^6/uL (4.00-5.40)
[2021-01-13 07:48] LABS: WHITE BLOOD COUNT 24.6 10^3/uL (4.0-10.0)
[2021-01-13] MEDS: FLUTICASONE HFA 110 MCG 12 GM INHALER (FLOVENT) INH SCH ×2 (07:53→20:59)
[2021-01-13] MEDS: PANTOPRAZOLE 40MG VIAL (C9113 PER 1) IV SCH ×2 (07:55→20:18)
[2021-01-13] MEDS: dexameTHASONE 20MG/5ML VIAL (J1100 PER 1MG) IV SCH (07:55)
[2021-01-13] MEDS: BARICITINIB 2MG TABLET (OLUMIANT) FOR EUA PO SCH (07:56)
[2021-01-13 08:17] LABS: EOSINOPHILS 1 % (0-3); LYMPHOCYTES 11 % (16-44); MONOCYTES 4 % (0-5); NEUTROPHILS 84 % (28-66); PLATELET ESTIMATE NORMAL (NORMAL)
[2021-01-13 08:44] LABS: ALBUMIN 1.9 GM/DL (3.2-5.2); ALT/SGPT 58 U/L (12-78); BILIRUBIN,TOTAL 0.3 MG/DL (0.2-1.0); BLOOD UREA NITROGEN 36 MG/DL (7-18); CALCIUM LEVEL 8.4 MG/DL (8.8-10.2); CARBON DIOXIDE LEVEL 33 MEQ/L (21-32); CHLORIDE LEVEL 99 MEQ/L (98-107); CREATININE FOR GFR 0.61 MG/DL (0.55-1.30); GLOMERULAR FILTRATION RATE > 60.0 (>45); GLUCOSE, FASTING 99 MG/DL (70-100); MAGNESIUM LEVEL 2.3 MG/DL (1.8-2.4); POTASSIUM SERUM 5.9 MEQ/L (3.5-5.1); SODIUM LEVEL 134 MEQ/L (136-145); TOTAL PROTEIN 4.9 GM/DL (6.4-8.2)
[2021-01-13] MEDS ORDERED: DEXTROSE 50% 50 ML SYRINGE IV STA (10:31)
[2021-01-13] MEDS ORDERED: HumuLIN R (REGULAR) INSULIN (NovoLIN R) **100U/ML** PER UNIT IV STA (10:31)
[2021-01-13] MEDS ORDERED: FUROSEMIDE 40MG/4ML VIAL (J1940) IV ONE (10:40)
[2021-01-13] MEDS ORDERED: CALCIUM GLUCONATE 1,000 MG in D5W MINI-BAG PLUS 100 ML IV ONE (10:40)
[2021-01-13] MEDS ORDERED: SOD POLYSTYRENE SULFONATE SUSP 15 GM/60 ML UD PO ONE (10:40)
[2021-01-13] MEDS: SUCRALFATE SUSP 1GM/10ML UD PO SCH ×3 (11:14→23:07)
--- NOTE | 2021-01-13 11:37 | IPNPDOC ---
Text Note Date of Service The patient was seen on 01/13/21. NOTE Subjective: Patient states that she feels better today. She is on the Vapotherm 25L/Fio2 55 during the daytime. Patient stated that she had bowel movement overnight with black stool Objective: GENERAL APPEARANCE: NAD HEENT: no scleral icterus, no JVD, EOMI CARDIOVASCULAR: S1S2 LUNGS: Diminished lung sounds bilaterally ABDOMEN: soft & not tender w palpation MUSCULOSKELETAL: no cyanosis, no swelling INTEGUMENT: no generalized pallor NEUROLOGICAL: cranial nerve function from 2-12 intact, follows commands, speech not dysarthric Assessment and plan: This is a 65 y/o female with a pmh of htn and hld who presents to us as a direct transfer from [facility] for management of hypoxia 2/2 covid pneumonia Acute anemia secondary to GI bleed Patient developed GI bleed with positive stool for occult blood She received 2 units of blood on 01/12/2021. Hemoglobin in the morning 8.2 Continue H&H every 6 hours PPI IV twice daily, Carafate added COVID-19 pneumonia/ARDS/acute hypoxemic respiratory failure Completed course of remdesivir Continue Vapotherm in the daytime and BiPAP overnight Continue baricitinib and Decadron IV procalcitonin negative on 01/12/2021 Continue self proning Discontinued full dose of anticoagulation due to GI bleed Hypertension Blood pressure under control Continue home meds HLD continue statin Asthma continue steroid inhaler Hyperkalemia Patient continues to have hyperkalemia We will give Kayexalate, furosemide 40 mg IV once and calcium gluconate Continue to monitor potassium level Leukocytosis Could be secondary to steroids. procalcitonin negative and blood culture negative Patient has been afebrile, not tachycardic. Continue to monitor Previously, patient completed treatment with antibiotics VS,Fishbone, I+O VS, Fishbone, I+O Laboratory Tests 01/12/21 15:06 01/12/21 19:16 01/13/21 01:02 01/13/21 07:33 Vital Signs Date Time Temp Pulse Resp B/P (MAP) Pulse Ox O2 Delivery O2 Flow Rate FiO2 01/13/21 10:00 93 20 124/56 (78) 84 HVNI-Vapotherm 25.0 55 01/13/21 04:00 96.9 I&O- Last 24 Hours up to 6 AM 01/13/21 06:00 Intake Total 2100 ml Output Total 2200 ml Balance -100 ml BEATRIZ AYERS DO Jan 13, 2021 11:37
--- NOTE | 2021-01-13 13:02 | IPNPDOC ---
Subjective Date Seen The patient was seen on 01/13/21. Subjective Chief Complaint/HPI Patient doing well with no complaints of anything. She denies of fever, chills, shortness of breath, palpitation, chest pain, orthopnea, diarrhea, blood in stool. Constitutional: Denies: Chills, Fever Eyes: Denies: Pain ENT: Denies: Head Aches Skin: Denies: Rash Pulmonary: Denies: Dyspnea, Cough Cardiovascular: Denies: Chest Pain, Palpitations, Orthopnea, Paroxysmal Noc. Dyspnea Gastrointestinal: Denies: Nausea, Vomiting, Abdominal Pain, Diarrhea Neurological: Denies: Weakness Objective Physical Examination General Exam: Positive: Alert, Cooperative Eye Exam: Negative: Sclera icteric ENT Exam: Negative: Atraumatic Neck Exam: Positive: Supple Chest Exam: Positive: Clear to auscultation Heart Exam: Positive: Rate Normal Abdomen Exam: Positive: Normal bowel sounds, Soft; Negative: Tenderness Extremity Exam: Negative: Clubbing, Cyanosis Neuro Exam: Positive: Normal Speech Psych Exam: Positive: Mental status NL, Mood NL, Oriented x 3 Assessment /Plan Assessment This is a 65-year-old female with past medical history of carpal tunnel status post release surgery presented to hospital with COVID-19 ARDS admitted to ICU. -COVID-19 ARDS -Hypoxic respiratory failure -Acute blood loss anemia Plan/VTE VTE Prophylaxis Ordered?: Yes Plan Advance Directives: DNR -From respiratory standpoint, she is improving. She is alternating between Vapotherm and BiPAP. However she is using less of BiPAP every day. She has finished a course of empiric antibiotic and remdesivir. She is currently on Baricitinib and Decadron. -Continue with self proning. -Hemoglobin is slowly downtrending again. Hg progressively losing blood through her GI tract, she may need to be evaluated by GI. Disposition Continue ICU care for VS, I&O, 24H, Fishbone Vital Signs/I&O Vital Signs Date Time Temp Pulse Resp B/P (MAP) Pulse Ox O2 Delivery O2 Flow Rate FiO2 01/13/21 12:00 97.8 80 20 122/56 (78) 97 HVNI-Vapotherm 25.0 55 I&O- Last 24 Hours up to 6 AM 01/13/21 06:00 Intake Total 2100 ml Output Total 2200 ml Balance -100 ml Laboratory Data 24H LABS Laboratory Tests 2 01/13/21 07:33: Immature Granulocyte % (Auto) , Neutrophils (%) (Auto) , Nucleated Red Blood Cells % (auto) 1.3H, Neutrophils 84H, Lymphocytes (Manual) 11L, Monocytes (Ma nual) 4, Eosinophils (Manual) 1, Red Blood Cell Morphology NORMAL, Platelet Estimate NORMAL, Anion Gap 2L, Glomerular Filtration Rate > 60.0, Calcium Level 8.4L, Magnesium Level 2.3, Total Bilirubin 0.3, Aspartate Amino Transf (AST/SGOT) 16, Alanine Aminotransferase (ALT/SGPT) 58, Alkaline Phosphatase 36L, Total Protein 4.9L, Albumin 1.9L, Albumin/Globulin Ratio 0.6L 01/13/21 11:11: Bedside Glucose (Misc Panel) 107 01/13/21 12:20: Bedside Glucose (Misc Panel) 147H CBC/BMP Laboratory Tests 01/12/21 15:06 01/12/21 19:16 01/13/21 01:02 01/13/21 07:33 Microbiology Microbiology 01/12/21 Blood Culture, Received Pending 01/12/21 Blood Culture - Preliminary, Resulted No growth after 24 hours . All specim... 01/12/21 Stool Occult Blood (AGUS) - Final, Complete LINCOLN DURON MD Jan 13, 2021 13:01
[2021-01-13 15:36] LABS: HEMATOCRIT 25.9 % (36.0-47.0); HEMOGLOBIN 8.9 g/dl (12.0-15.5)
[2021-01-13 19:26] LABS: HEMATOCRIT 23.4 % (36.0-47.0)
[2021-01-13] MEDS: MAGNESIUM OXIDE 400MG TAB (MAG-OX) PO SCH (20:16)
[2021-01-13] MEDS: PRIMIDONE 25MG PER 1/2 TABLET PO SCH (20:17)
[2021-01-13] MEDS: METOPROLOL SUCC *XL* 25MG TAB (TopROL *XL*) PO SCH (20:17)
[2021-01-13] MEDS: ATORVASTATIN 10 MG TAB PO SCH (20:18)
[2021-01-13] MEDS: ACETAMINOPHEN 500 MG TAB PO PRN (20:18)
[2021-01-14] VITALS (14 sets, daily range): BP systolic 110–144; BP diastolic 53–65
[2021-01-14 03:06] LABS: HEMATOCRIT 22.1 % (36.0-47.0); HEMOGLOBIN 7.7 g/dl (12.0-15.5)
[2021-01-14] MEDS: SUCRALFATE SUSP 1GM/10ML UD PO SCH ×4 (05:05→23:50)
[2021-01-14 06:50] LABS: HEMATOCRIT 21.9 % (36.0-47.0); HEMOGLOBIN 7.5 g/dl (12.0-15.5); MEAN CORPUSCULAR HEMOGLOBIN 28.8 pg (27.0-33.0); MEAN CORPUSCULAR HGB CONC 34.2 g/dl (32.0-36.5); MEAN CORPUSCULAR VOLUME 84.2 fl (80.0-96.0); PLATELET COUNT, AUTOMATED 284 10^3/uL (150-450); WHITE BLOOD COUNT 18.7 10^3/uL (4.0-10.0)
[2021-01-14 07:14] LABS: ALBUMIN 1.9 GM/DL (3.2-5.2); ALT/SGPT 63 U/L (12-78); BILIRUBIN,TOTAL 0.3 MG/DL (0.2-1.0); BLOOD UREA NITROGEN 24 MG/DL (7-18); CALCIUM LEVEL 8.2 MG/DL (8.8-10.2); CARBON DIOXIDE LEVEL 33 MEQ/L (21-32); CHLORIDE LEVEL 97 MEQ/L (98-107); CREATININE FOR GFR 0.72 MG/DL (0.55-1.30); GLOMERULAR FILTRATION RATE > 60.0 (>45); GLUCOSE, FASTING 91 MG/DL (70-100); MAGNESIUM LEVEL 2.2 MG/DL (1.8-2.4); SODIUM LEVEL 135 MEQ/L (136-145); TOTAL PROTEIN 4.6 GM/DL (6.4-8.2)
[2021-01-14] MEDS ORDERED: NS 1,000 ML IV SCH (07:15)
[2021-01-14] MEDS: FLUTICASONE HFA 110 MCG 12 GM INHALER (FLOVENT) INH SCH ×2 (08:00→19:46)
[2021-01-14 08:16] LABS: EOSINOPHILS 3 % (0-3); LYMPHOCYTES 14 % (16-44); METAMYELOCYTES 3 % (0-0); MONOCYTES 4 % (0-5); MYELOCYTES 4 % (0-0); NEUTROPHILS 71 % (28-66); PLATELET ESTIMATE NORMAL (NORMAL)
[2021-01-14 08:17] LABS: ANISOCYTOSIS 1+; HYPOCHROMASIA 1+; POLYCHROMASIA 1+
[2021-01-14] MEDS: PANTOPRAZOLE 40MG VIAL (C9113 PER 1) IV SCH ×2 (08:21→20:46)
[2021-01-14] MEDS: BARICITINIB 2MG TABLET (OLUMIANT) FOR EUA PO SCH (08:21)
[2021-01-14] MEDS: dexameTHASONE 20MG/5ML VIAL (J1100 PER 1MG) IV SCH (08:21)
--- NOTE | 2021-01-14 11:02 | IPNPDOC ---
Text Note Date of Service The patient was seen on 01/14/21. NOTE Subjective: Patient states that she feels better today. She is on the Vapotherm 20L/Fio2 40 during the daytime. No any acute events overnight. No gross blood in his stool Objective: GENERAL APPEARANCE: NAD HEENT: no scleral icterus, no JVD, EOMI CARDIOVASCULAR: S1S2 LUNGS: Diminished lung sounds bilaterally ABDOMEN: soft & not tender w palpation MUSCULOSKELETAL: no cyanosis, no swelling INTEGUMENT: no generalized pallor NEUROLOGICAL: cranial nerve function from 2-12 intact, follows commands, speech not dysarthric Assessment and plan: This is a 65 y/o female with a pmh of htn and hld who presents to us as a direct transfer from [facility] for management of hypoxia 2/2 covid pneumonia Acute anemia secondary to GI bleed Patient developed GI bleed with positive stool for occult blood She received 2 units of blood on 01/12/2021. Today hemoglobin 7.5. I will give 2 additional units of blood Continue H&H every 6 hours. Will transfer patient to PCU PPI IV twice daily, Carafate added COVID-19 pneumonia/ARDS/acute hypoxemic respiratory failure Completed course of remdesivir Continue Vapotherm in the daytime and BiPAP overnight Continue baricitinib and Decadron IV procalcitonin negative on 01/12/2021 Continue self proning Discontinued full dose of anticoagulation due to GI bleed Hypertension Blood pressure under control Continue home meds HLD continue statin Asthma continue steroid inhaler Hyperkalemia Resolved Leukocytosis Improved Could be secondary to steroids. procalcitonin negative and blood culture negative Patient has been afebrile, not tachycardic. Continue to monitor Previously, patient completed treatment with antibiotics VS,Fishbone, I+O VS, Fishbone, I+O Laboratory Tests 01/13/21 15:06 01/13/21 19:10 01/13/21 19:11 01/14/21 02:52 01/14/21 06:34 01/14/21 06:35 Vital Signs Date Time Temp Pulse Resp B/P (MAP) Pulse Ox O2 Delivery O2 Flow Rate FiO2 01/14/21 07:00 99 HVNI-Vapotherm 20.0 40 01/14/21 05:00 65 01/14/21 04:00 96.0 20 133/63 (86) I&O- Last 24 Hours up to 6 AM 01/14/21 06:00 Intake Total 1770 ml Output Total 625 ml Balance 1145 ml BEATRIZ AYERS DO Jan 14, 2021 11:02
--- NOTE | 2021-01-14 13:40 | IPNPDOC ---
Subjective Date Seen The patient was seen on 01/14/21. Subjective Chief Complaint/HPI Patient is doing well and has absolutely no complaint today. She denies of fever, chills, chest pain, shortness of breath, palpitation, lower extremity swelling. She is going between Vapotherm and BiPAP as needed. He is mainly on Vapotherm at this time. General: Denies: Chills Constitutional: Denies: Chills, Fever ENT: Denies: Head Aches Skin: Denies: Rash Pulmonary: Denies: Dyspnea, Cough Cardiovascular: Denies: Chest Pain, Palpitations, Orthopnea, Paroxysmal Noc. Dyspnea, Edema Gastrointestinal: Denies: Nausea, Vomiting, Abdominal Pain, Diarrhea Neurological: Denies: Weakness Objective Physical Examination General Exam: Positive: Alert, Cooperative, No Acute Distress Eye Exam: Negative: Sclera icteric ENT Exam: Negative: Atraumatic Neck Exam: Positive: Supple Chest Exam: Positive: Clear to auscultation Heart Exam: Positive: Rate Normal Abdomen Exam: Positive: Normal bowel sounds, Soft Extremity Exam: Negative: Clubbing, Cyanosis Neuro Exam: Positive: Normal Speech Psych Exam: Positive: Mental status NL, Mood NL, Oriented x 3 Assessment /Plan Assessment This is a 62-year-old female with past medical history of carpal tunnel status post release surgery presented here with hypoxic respite failure secondary to COVID-19 ARDS. 1. COVID-19 ARDS 2. Hypoxic respiratory failure 3. Acute blood loss anemia Plan/VTE VTE Prophylaxis Ordered?: Yes Plan Advance Directives: DNR -She has completed remdesivir. She is currently on Baricitinib and Decadron. She also completed a short course of empiric antibiotics. -Continue with Vapotherm to target oxygen saturation above 90%. Encourage self proning. -Transfusion to target hemoglobin above 7. She may benefit from GI evaluation for acute blood loss anemia. Patient is currently stable and being transferred to stepdown unit. Pulmonary will be standby if needed Disposition Continue hospital care. VS, I&O, 24H, Fishbone Vital Signs/I&O Vital Signs Date Time Temp Pulse Resp B/P (MAP) Pulse Ox O2 Delivery O2 Flow Rate FiO2 01/14/21 12:43 98.3 83 20 119/61 HVNI-Vapotherm 25.0 60 01/14/21 11:34 88 I&O- Last 24 Hours up to 6 AM 01/14/21 06:00 Intake Total 1770 ml Output Total 625 ml Balance 1145 ml Laboratory Data 24H LABS Laboratory Tests 2 01/14/21 06:34: Anion Gap 5L, Glomerular Filtration Rate > 60.0, Calcium Level 8.2L, Magnesium Level 2.2, Total Bilirubin 0.3, Aspartate Amino Transf (AST/SGOT) 23, Alanine Aminotransferase (ALT/SGPT) 63, Alkaline Phosphatase 33L, Total Protein 4.6L, Albumin 1.9L, Albumin/Globulin Ratio 0.7L 01/14/21 06:35: Immature Granulocyte % (Auto) , Neutrophils (%) (Auto) , Nucleated Red Blood Cells % (auto) 0.9H, Neutrophils 71H, Band Neutrophils 1, Lymphocytes (Manual) 14L, Monocytes (Manual) 4, Eosinophils (Manual) 3, Metamyelocytes 3H, Myelocytes 4H, Polychromasia 1+, Hypochromasia 1+, Anisocytosis 1+, Platelet Estimate NORMAL CBC/BMP Laboratory Tests 01/13/21 15:06 01/13/21 19:10 01/13/21 19:11 01/14/21 02:52 01/14/21 06:34 01/14/21 06:35 Microbiology Microbiology 01/12/21 Blood Culture - Preliminary, Resulted No growth after 24 hours . All specim... 01/12/21 Blood Culture - Preliminary, Resulted No Growth after 48 hours. All Specime... 01/12/21 Stool Occult Blood (AGUS) - Final, Complete LINCOLN DURON MD Jan 14, 2021 13:40
[2021-01-14] MEDS: PRIMIDONE 25MG PER 1/2 TABLET PO SCH (20:46)
[2021-01-14] MEDS: MAGNESIUM OXIDE 400MG TAB (MAG-OX) PO SCH (20:47)
[2021-01-14] MEDS: ATORVASTATIN 10 MG TAB PO SCH (20:47)
[2021-01-14] MEDS: METOPROLOL SUCC *XL* 25MG TAB (TopROL *XL*) PO SCH (20:47)
[2021-01-14 22:14] LABS: HEMATOCRIT 28.9 % (36.0-47.0)
[2021-01-14 22:15] LABS: HEMOGLOBIN 9.9 g/dl (12.0-15.5)
[2021-01-15 04:23] VITALS: BP 121/76
[2021-01-15] MEDS: SUCRALFATE SUSP 1GM/10ML UD PO SCH ×4 (05:48→23:58)
[2021-01-15 06:12] LABS: BASO % 0.2 % (0.0-1.0); EOS # 0.2 10^3/uL (0.0-0.5); EOS % 1.2 % (0.0-3.0); HEMATOCRIT 29.4 % (36.0-47.0); HEMOGLOBIN 9.9 g/dl (12.0-15.5); LYMPH # 2.7 10^3/uL (1.5-5.0); LYMPH % 14.9 % (24.0-44.0); MEAN CORPUSCULAR HEMOGLOBIN 28.7 pg (27.0-33.0); MEAN CORPUSCULAR HGB CONC 33.7 g/dl (32.0-36.5); MEAN CORPUSCULAR VOLUME 85.2 fl (80.0-96.0); MONO # 1.3 10^3/uL (0.0-0.8); NEUTROPHILS # 12.7 10^3/uL (1.5-8.5); NEUTROPHILS % 71.7 % (36.0-66.0); PLATELET COUNT, AUTOMATED 290 10^3/uL (150-450); RED BLOOD COUNT 3.45 10^6/uL (4.00-5.40); WHITE BLOOD COUNT 17.8 10^3/uL (4.0-10.0)
[2021-01-15 06:48] LABS: ALBUMIN 2.2 GM/DL (3.2-5.2); ALT/SGPT 60 U/L (12-78); BILIRUBIN,TOTAL 0.6 MG/DL (0.2-1.0); BLOOD UREA NITROGEN 17 MG/DL (7-18); CALCIUM LEVEL 8.4 MG/DL (8.8-10.2); CARBON DIOXIDE LEVEL 31 MEQ/L (21-32); CHLORIDE LEVEL 100 MEQ/L (98-107); CREATININE FOR GFR 0.71 MG/DL (0.55-1.30); GLOMERULAR FILTRATION RATE > 60.0 (>45); GLUCOSE, FASTING 76 MG/DL (70-100); MAGNESIUM LEVEL 2.4 MG/DL (1.8-2.4); SODIUM LEVEL 139 MEQ/L (136-145); TOTAL PROTEIN 4.9 GM/DL (6.4-8.2)
[2021-01-15] MEDS: FLUTICASONE HFA 110 MCG 12 GM INHALER (FLOVENT) INH SCH ×2 (07:50→20:22)
[2021-01-15 08:00] VITALS: BP 122/68
[2021-01-15] MEDS: BARICITINIB 2MG TABLET (OLUMIANT) FOR EUA PO SCH (08:52)
[2021-01-15] MEDS: dexameTHASONE 20MG/5ML VIAL (J1100 PER 1MG) IV SCH (08:52)
[2021-01-15] MEDS: PANTOPRAZOLE 40MG VIAL (C9113 PER 1) IV SCH ×2 (08:52→20:24)
[2021-01-15 12:00] VITALS: BP 128/64
--- NOTE | 2021-01-15 13:25 | IPNPDOC ---
Text Note Date of Service The patient was seen on 01/15/21. NOTE Subjective: No new acute events overnight. No fever or chills. Objective: GENERAL APPEARANCE: NAD HEENT: no scleral icterus, no JVD, EOMI CARDIOVASCULAR: S1S2 LUNGS: Diminished lung sounds bilaterally ABDOMEN: soft & not tender w palpation MUSCULOSKELETAL: no cyanosis, no swelling INTEGUMENT: no generalized pallor NEUROLOGICAL: cranial nerve function from 2-12 intact, follows commands, speech not dysarthric Assessment and plan: This is a 65 y/o female with a pmh of htn and hld who presents to us as a direct transfer from [facility] for management of hypoxia 2/2 covid pneumonia Acute anemia secondary to GI bleed Patient developed GI bleed with positive stool for occult blood She received 2 units of blood on 01/12/2021. 2 additional units of blood 01/14/21 Hemoglobin stable Continue PPI IV twice daily, Carafate added COVID-19 pneumonia/ARDS/acute hypoxemic respiratory failure Completed course of remdesivir Continue Vapotherm in the daytime and BiPAP overnight Continue baricitinib and Decadron IV procalcitonin negative on 01/12/2021 Continue self proning Discontinued full dose of anticoagulation due to GI bleed Hypertension Blood pressure under control Continue home meds HLD continue statin Asthma continue steroid inhaler Hyperkalemia Resolved Leukocytosis Improved Could be secondary to steroids. procalcitonin negative and blood culture negative Patient has been afebrile, not tachycardic. Continue to monitor Previously, patient completed treatment with antibiotics VS,Fishbone, I+O VS, Fishbone, I+O Laboratory Tests 01/14/21 22:00 01/15/21 05:58 Vital Signs Date Time Temp Pulse Resp B/P (MAP) Pulse Ox O2 Delivery O2 Flow Rate FiO2 01/15/21 07:52 HVNI-Vapotherm 25.0 60 01/15/21 04:23 96.8 78 20 121/76 (91) 100 I&O- Last 24 Hours up to 6 AM 01/15/21 06:00 Intake Total 2590 ml Output Total 950 ml Balance 1640 ml BEATRIZ AYERS DO Jan 15, 2021 13:25
[2021-01-15 16:26] VITALS: BP 100/45
[2021-01-15 20:00] VITALS: BP 101/51
[2021-01-15] MEDS: MAGNESIUM OXIDE 400MG TAB (MAG-OX) PO SCH (20:22)
[2021-01-15] MEDS: ATORVASTATIN 10 MG TAB PO SCH (20:22)
[2021-01-15] MEDS: PRIMIDONE 25MG PER 1/2 TABLET PO SCH (20:22)
[2021-01-15] MEDS: METOPROLOL SUCC *XL* 25MG TAB (TopROL *XL*) PO SCH (20:24)
[2021-01-16] VITALS: BP 124/59
[2021-01-16 03:54] VITALS: BP 135/63
[2021-01-16] MEDS: SUCRALFATE SUSP 1GM/10ML UD PO SCH ×4 (06:07→23:55)
[2021-01-16] MEDS: FLUTICASONE HFA 110 MCG 12 GM INHALER (FLOVENT) INH SCH ×2 (07:53→20:00)
[2021-01-16 07:58] LABS: BASO % 0.1 % (0.0-1.0); EOS # 0.3 10^3/uL (0.0-0.5); HEMATOCRIT 27.7 % (36.0-47.0); HEMOGLOBIN 9.4 g/dl (12.0-15.5); LYMPH # 2.2 10^3/uL (1.5-5.0); LYMPH % 15.3 % (24.0-44.0); MEAN CORPUSCULAR HEMOGLOBIN 29.7 pg (27.0-33.0); MEAN CORPUSCULAR HGB CONC 33.9 g/dl (32.0-36.5); MEAN CORPUSCULAR VOLUME 87.4 fl (80.0-96.0); MONO % 6.8 % (2.0-8.0); NEUTROPHILS # 10.6 10^3/uL (1.5-8.5); NEUTROPHILS % 72.4 % (36.0-66.0); PLATELET COUNT, AUTOMATED 255 10^3/uL (150-450); RED BLOOD COUNT 3.17 10^6/uL (4.00-5.40); WHITE BLOOD COUNT 14.6 10^3/uL (4.0-10.0)
[2021-01-16 08:00] VITALS: BP 98/51
[2021-01-16 08:15] LABS: ALT/SGPT 65 U/L (12-78); BILIRUBIN,TOTAL 0.4 MG/DL (0.2-1.0); BLOOD UREA NITROGEN 18 MG/DL (7-18); CALCIUM LEVEL 8.1 MG/DL (8.8-10.2); CARBON DIOXIDE LEVEL 32 MEQ/L (21-32); CHLORIDE LEVEL 103 MEQ/L (98-107); CREATININE FOR GFR 0.68 MG/DL (0.55-1.30); GLOMERULAR FILTRATION RATE > 60.0 (>45); GLUCOSE, FASTING 72 MG/DL (70-100); MAGNESIUM LEVEL 2.4 MG/DL (1.8-2.4); POTASSIUM SERUM 3.6 MEQ/L (3.5-5.1); SODIUM LEVEL 140 MEQ/L (136-145); TOTAL PROTEIN 4.9 GM/DL (6.4-8.2)
[2021-01-16] MEDS: dexameTHASONE 20MG/5ML VIAL (J1100 PER 1MG) IV SCH (09:27)
[2021-01-16] MEDS: PANTOPRAZOLE 40MG VIAL (C9113 PER 1) IV SCH ×2 (09:27→21:01)
[2021-01-16 12:00] VITALS: BP 102/50
--- NOTE | 2021-01-16 15:47 | IPNPDOC ---
Text Note Date of Service The patient was seen on 01/16/21. NOTE Subjective: Patient is a 65-year-old female who initially presented with COVID- 19 pneumonia. Patient is currently on Vapotherm and says she is feeling much better today. Patient is trying to walk around and do anything she can to get better. Patient developed a GI bleed and her hemoglobin is stable at this time. We will continue to monitor. Review of systems: General: Patient denies fevers HEENT: Patient denies headaches Cardiovascular: Patient denies chest pain Respiratory: Patient reports decreased shortness of breath, cough GI: Patient denies abdominal pain, nausea, vomiting, diarrhea : Patient denies increased frequency or pain with urination Extremities: Patient denies swelling or pain in extremities Neurological: Patient denies numbness or tingling in legs Physical exam: Vitals: See below General: Alert and oriented male patient is sitting the bedside chair with Vapotherm nasal cannula oxygen in place. Patient not appear to be in any acute distress. HEENT: Normocephalic, atraumatic, moist mucous membranes. Neck: No lymphadenopathy or thyromegaly Cardiac: Regular rate and rhythm, no murmurs, normal S1, normal S2 Pulm: Clear to auscultation bilaterally. No wheezes, rhonchi, rales Abd: Nondistended, nontender to palpation, normal bowel sounds Ext: No edema bilateral lower extremities Labs: See below Imaging: No new imaging has been performed Assessment/plan: 65-year-old female who presents with hypoxia secondary to COVID-19 pneumonia 1. Acute hypoxic respiratory failure secondary to COVID-19. Patient will continue on Vapotherm. Patient will continue Decadron and baricitinib for the total course. Patient completed course of remdesivir. Not on anticoagulation secondary to GI bleed. Patient is still requiring Vapotherm therapy with BiPAP therapy at night to maintain oxygen saturations. We will continue to try to wean down her oxygen. I did have a long conversation with the patient today about this is going to be a long process and the patient may still need to go on oxygen while at home if we are able to wean her down to regular nasal cannula oxygen. Patient is aware of this and says she understands. 2. Acute anemia secondary to GI bleed. Patient developed GI bleed with positive occult blood. Received 4 units in total. Teds and sequentials. We will continue to monitor the patient's hemoglobin. 3. COVID-19 pneumonia. Procalcitonin negative. Continue to wean down oxygen. 4. Hypertension. Blood pressure control. Continue home meds. 5. Hyperlipidemia. Continue statin. 6. Asthma. Continue steroid inhaler. 7. Hyperkalemia, resolved. 8. Leukocytosis. Most likely secondary to steroids. Continue to monitor. DVT Prophylaxis: Teds and sequentials Disposition: Pending improvement in oxygenation. VS,Rayshawnbone, I+O VS, Rayshawnbone, I+O Laboratory Tests 01/16/21 07:05 Vital Signs Date Time Temp Pulse Resp B/P (MAP) Pulse Ox O2 Delivery O2 Flow Rate FiO2 01/16/21 12:00 97.3 72 20 102/50 (67) 92 HVNI-Vapotherm 25.0 50 I&O- Last 24 Hours up to 6 AM 01/16/21 06:00 Intake Total 780 ml Balance 780 ml BASSEM CALERO DO Jan 16, 2021 15:47
[2021-01-16 16:00] VITALS: BP 105/54
[2021-01-16 20:00] VITALS: BP 132/62
[2021-01-16] MEDS: PRIMIDONE 25MG PER 1/2 TABLET PO SCH (21:00)
[2021-01-16] MEDS: MAGNESIUM OXIDE 400MG TAB (MAG-OX) PO SCH (21:00)
[2021-01-16] MEDS: ATORVASTATIN 10 MG TAB PO SCH (21:00)
[2021-01-16] MEDS: METOPROLOL SUCC *XL* 25MG TAB (TopROL *XL*) PO SCH (21:01)
[2021-01-17] VITALS (11 sets, daily range): BP systolic 95–135; BP diastolic 51–73; O2SAT 83–95
[2021-01-17] MEDS: SUCRALFATE SUSP 1GM/10ML UD PO SCH ×4 (05:20→22:21)
[2021-01-17] MEDS ORDERED: IPRATROPIUM 0.5MG/ALBUTEROL 2.5MG INH SOL UD 3ML (DUONEB) NEB ONE (06:00)
[2021-01-17] MEDS: FLUTICASONE HFA 110 MCG 12 GM INHALER (FLOVENT) INH SCH ×2 (07:44→17:59)
[2021-01-17 08:06] LABS: BASO % 0.2 % (0.0-1.0); EOS # 0.2 10^3/uL (0.0-0.5); EOS % 1.8 % (0.0-3.0); HEMATOCRIT 28.9 % (36.0-47.0); HEMOGLOBIN 9.7 g/dl (12.0-15.5); LYMPH # 1.7 10^3/uL (1.5-5.0); LYMPH % 13.4 % (24.0-44.0); MEAN CORPUSCULAR HEMOGLOBIN 29.5 pg (27.0-33.0); MEAN CORPUSCULAR HGB CONC 33.6 g/dl (32.0-36.5); MEAN CORPUSCULAR VOLUME 87.8 fl (80.0-96.0); MONO # 0.8 10^3/uL (0.0-0.8); MONO % 6.5 % (2.0-8.0); NEUTROPHILS # 9.7 10^3/uL (1.5-8.5); PLATELET COUNT, AUTOMATED 270 10^3/uL (150-450); RED BLOOD COUNT 3.29 10^6/uL (4.00-5.40); WHITE BLOOD COUNT 12.7 10^3/uL (4.0-10.0)
[2021-01-17 08:32] LABS: ALT/SGPT 74 U/L (12-78); BILIRUBIN,TOTAL 0.4 MG/DL (0.2-1.0); BLOOD UREA NITROGEN 20 MG/DL (7-18); CALCIUM LEVEL 8.4 MG/DL (8.8-10.2); CARBON DIOXIDE LEVEL 30 MEQ/L (21-32); CHLORIDE LEVEL 104 MEQ/L (98-107); GLOMERULAR FILTRATION RATE > 60.0 (>45); GLUCOSE, FASTING 71 MG/DL (70-100); MAGNESIUM LEVEL 2.3 MG/DL (1.8-2.4); POTASSIUM SERUM 3.8 MEQ/L (3.5-5.1); SODIUM LEVEL 139 MEQ/L (136-145); TOTAL PROTEIN 5.4 GM/DL (6.4-8.2)
[2021-01-17] MEDS: PANTOPRAZOLE 40MG VIAL (C9113 PER 1) IV SCH ×2 (09:17→22:21)
[2021-01-17] MEDS: dexameTHASONE 20MG/5ML VIAL (J1100 PER 1MG) IV SCH (09:18)
[2021-01-17] MEDS: ASPIRIN 81MG ENTERIC TABLET PO SCH (09:18)
--- NOTE | 2021-01-17 14:37 | IPNPDOC ---
Text Note Date of Service The patient was seen on 01/17/21. NOTE Subjective: 65-year-old female initially presented with COVID-19 pneumonia. Patient currently on Vapotherm says she is feeling much better today. Patient is try to walk around to do anything she can to get better. Patient developed GI bleed but her hemoglobin has been stable for the past few days. Patient is otherwise doing well at this time. Review of systems: General: Patient denies fevers HEENT: Patient denies headaches Cardiovascular: Patient denies chest pain Respiratory: Patient reports improvement in her shortness of breath, cough GI: Patient denies abdominal pain, nausea, vomiting, diarrhea : Patient denies increased frequency or pain with urination Extremities: Patient denies swelling or pain in extremities Neurological: Patient denies numbness or tingling in legs Physical exam: Vitals: See below General: Alert and oriented female patient sitting in the bedside chair with Vapotherm nasal cannula oxygen in place. Patient did not appear to be in any acute distress. HEENT: Normocephalic, atraumatic, moist mucous membranes. Neck: No lymphadenopathy or thyromegaly Cardiac: Regular rate and rhythm, no murmurs, normal S1, normal S2 Pulm: Diminished breath sounds bilaterally. No wheezes, rhonchi, or rales Abd: Nondistended, nontender to palpation, normal bowel sounds Ext: No edema bilateral lower extremities Labs: See below Imaging: No new imaging has been performed Assessment/plan: 65-year-old female presented with hypoxia secondary to COVID-19 pneumonia 1. Acute hypoxic respiratory failure secondary to COVID-19. Patient will jacob nue on Vapotherm. Continue Decadron and baricitinib for complete course. Patient completed course of remdesivir. Not on anticoagulation secondary to GI bleed. Still requiring Vapotherm therapy with BiPAP therapy at night to maintain oxygen saturations. She her Vapotherm has been slightly weaned down from yesterday. Patient is otherwise doing well we will continue to monitor. 2. Acute anemia secondary to GI bleed. Patient developed GI bleed with positive occult blood. Received 4 units of blood in total. Tendon sequentials for anticoagulation as we will continue to hold anticoagulation due to GI bleed. Hemoglobin is now stable. 3. COVID-19 pneumonia. Procalcitonin has been negative and we will recheck this. Continue to wean down. 4. Hypertension. Blood pressures controlled actually mildly low today however, patient has been asymptomatic. Hold parameters on hold medications. 5. Hyperlipidemia. Continue statin. 6. Asthma. Continue steroid inhaler. 7. Hyperkalemia, resolved. 8. Leukocytosis. Most likely secondary to steroids. Continue to monitor. This is slightly improving. DVT Prophylaxis: Teds and sequentials Disposition: Pending improvement in oxygenation VS,Fishbone, I+O VS, Fishbone, I+O Laboratory Tests 01/17/21 07:38 Vital Signs Date Time Temp Pulse Resp B/P (MAP) Pulse Ox O2 Delivery O2 Flow Rate FiO2 01/17/21 12:30 25.0 45 01/17/21 12:28 99.4 74 20 97/53 94 HVNI-Vapotherm I&O- Last 24 Hours up to 6 AM 01/17/21 06:00 Intake Total 2150 ml Output Total 1850 ml Balance 300 ml BASSEM CALERO DO Jan 17, 2021 14:37
[2021-01-17] MEDS: METOPROLOL SUCC *XL* 25MG TAB (TopROL *XL*) PO SCH (22:20)
[2021-01-17] MEDS: MAGNESIUM OXIDE 400MG TAB (MAG-OX) PO SCH (22:20)
[2021-01-17] MEDS: ATORVASTATIN 10 MG TAB PO SCH (22:20)
[2021-01-17] MEDS: PRIMIDONE 25MG PER 1/2 TABLET PO SCH (22:21)
[2021-01-18] VITALS (7 sets, daily range): BP systolic 110–141; BP diastolic 57–69; O2SAT 89–99
[2021-01-18] MEDS: SUCRALFATE SUSP 1GM/10ML UD PO SCH ×4 (06:54→20:29)
[2021-01-18] MEDS: FLUTICASONE HFA 110 MCG 12 GM INHALER (FLOVENT) INH SCH ×2 (07:24→19:18)
[2021-01-18 07:42] LABS: BASO % 0.2 % (0.0-1.0); EOS # 0.2 10^3/uL (0.0-0.5); HEMATOCRIT 30.8 % (36.0-47.0); HEMOGLOBIN 10.2 g/dl (12.0-15.5); LYMPH # 1.8 10^3/uL (1.5-5.0); LYMPH % 15.4 % (24.0-44.0); MEAN CORPUSCULAR HEMOGLOBIN 29.4 pg (27.0-33.0); MEAN CORPUSCULAR HGB CONC 33.1 g/dl (32.0-36.5); MEAN CORPUSCULAR VOLUME 88.8 fl (80.0-96.0); MONO # 0.6 10^3/uL (0.0-0.8); MONO % 5.4 % (2.0-8.0); NEUTROPHILS # 8.9 10^3/uL (1.5-8.5); NEUTROPHILS % 75.7 % (36.0-66.0); PLATELET COUNT, AUTOMATED 290 10^3/uL (150-450); RED BLOOD COUNT 3.47 10^6/uL (4.00-5.40); WHITE BLOOD COUNT 11.8 10^3/uL (4.0-10.0)
[2021-01-18 08:08] LABS: ALBUMIN 2.2 GM/DL (3.2-5.2); ALT/SGPT 81 U/L (12-78); BILIRUBIN,TOTAL 0.4 MG/DL (0.2-1.0); BLOOD UREA NITROGEN 19 MG/DL (7-18); CALCIUM LEVEL 8.3 MG/DL (8.8-10.2); CARBON DIOXIDE LEVEL 31 MEQ/L (21-32); CHLORIDE LEVEL 104 MEQ/L (98-107); CREATININE FOR GFR 0.61 MG/DL (0.55-1.30); GLOMERULAR FILTRATION RATE > 60.0 (>45); GLUCOSE, FASTING 76 MG/DL (70-100); MAGNESIUM LEVEL 2.4 MG/DL (1.8-2.4); POTASSIUM SERUM 4.2 MEQ/L (3.5-5.1); SODIUM LEVEL 139 MEQ/L (136-145); TOTAL PROTEIN 5.5 GM/DL (6.4-8.2)
[2021-01-18] MEDS: dexameTHASONE 20MG/5ML VIAL (J1100 PER 1MG) IV SCH (08:53)
[2021-01-18] MEDS: PANTOPRAZOLE 40MG VIAL (C9113 PER 1) IV SCH ×2 (08:54→20:28)
--- NOTE | 2021-01-18 10:51 | IPNPDOC ---
Text Note Date of Service The patient was seen on 01/18/21. NOTE Subjective: Patient is a 65-year-old female who initially presented with COVID- 19 pneumonia. Patient is currently on nasal cannula oxygen at 5 L. Patient does have difficulty recovering after getting up from the chair and going to the bathroom. Patient is otherwise feeling well today. Patient states she is feeling much better although when I was in the room talking with her her oxygen saturation was anywhere from 85 to 88%. Patient states that she is using her incentive spirometer and trying to prone as much as possible. Review of systems: General: Patient denies fevers HEENT: Patient denies headaches Cardiovascular: Patient denies chest pain Respiratory: Patient reports improvement in her shortness of breath, cough GI: Patient denies abdominal pain, nausea, vomiting, diarrhea : Patient denies increased frequency or pain with urination Extremities: Patient denies swelling or pain in extremities Neurological: Patient denies numbness or tingling in legs Physical exam: Vitals: See below General: Alert and oriented female patient who was sitting the bedside chair with nasal cannula oxygen in place when I walked in. Patient not appear to be in acute distress. HEENT: Normocephalic, atraumatic, moist mucous membranes. Neck: No lymphadenopathy or thyromegaly Cardiac: Regular rate and rhythm, no murmurs, normal S1, normal S2 Pulm: Diminished breath sounds bilaterally. No wheezes, rhonchi, rales Abd: Nondistended, nontender to palpation, normal bowel sounds Ext: No edema bilateral lower extremities Labs: See below Imaging: No new imaging has been performed Assessment/plan: 65-year-old female presented with hypoxia secondary to COVID-19 pneumonia 1. Acute hypoxic respiratory failure secondary to COVID-19. Patient will continue on nasal cannula oxygen. Continue with Decadron and baricitinib for complete courses. Patient completed course of remdesivir. Not on anticoagulation secondary to GI bleed. Still requiring oxygen therapy with n aj cannula oxygen as she was able to be weaned off of Vapotherm yesterday. Patient will continue nasal cannula oxygen. 2. Anemia secondary to GI bleed. Patient developed a GI bleed with positive occult blood. Patient received 4 units of blood in total. Teds and sequential stockings for DVT prophylaxis as we continue to hold anticoagulation due to GI bleed. Hemoglobin is now stable. If it remains stable, we can resume anticoagulation. 3. COVID-19 pneumonia. Procalcitonin has been negative and we will continue to monitor. 4. Hypertension. Blood pressures controlled. She was mildly hypotensive yesterday but was asymptomatic. Hold parameters on her medications. 5. Hyperlipidemia. Continue statin therapy. 6. Asthma. Continue steroid inhaler. 7. Hyperkalemia, resolved. Continue to monitor. 8. Leukocytosis. Most likely secondary to steroids. This is improving. DVT Prophylaxis: Teds and sequentials Disposition: Pending improvement in oxygenation VS,Fishbone, I+O VS, Fishbone, I+O Laboratory Tests 01/18/21 07:07 Vital Signs Date Time Temp Pulse Resp B/P (MAP) Pulse Ox O2 Delivery O2 Flow Rate FiO2 01/18/21 08:30 5.0 01/18/21 08:00 90 Nasal Cannula 01/18/21 06:58 96.9 65 18 110/57 (74) 01/17/21 13:45 30 I&O- Last 24 Hours up to 6 AM 01/18/21 06:00 Intake Total 1940 ml Output Total 950 ml Balance 990 ml BASSEM CALERO DO Jan 18, 2021 10:51
[2021-01-18] MEDS: PRIMIDONE 25MG PER 1/2 TABLET PO SCH (20:28)
[2021-01-18] MEDS: METOPROLOL SUCC *XL* 25MG TAB (TopROL *XL*) PO SCH (20:29)
[2021-01-18] MEDS: ATORVASTATIN 10 MG TAB PO SCH (20:29)
[2021-01-18] MEDS: MAGNESIUM OXIDE 400MG TAB (MAG-OX) PO SCH (20:29)
[2021-01-19 04:16] VITALS: O2SAT 96
[2021-01-19 06:00] VITALS: BP 137/62
[2021-01-19 06:40] LABS: BASO % 0.1 % (0.0-1.0); EOS # 0.2 10^3/uL (0.0-0.5); EOS % 1.9 % (0.0-3.0); HEMATOCRIT 32.4 % (36.0-47.0); HEMOGLOBIN 10.5 g/dl (12.0-15.5); LYMPH # 1.6 10^3/uL (1.5-5.0); LYMPH % 15.8 % (24.0-44.0); MEAN CORPUSCULAR HEMOGLOBIN 28.9 pg (27.0-33.0); MEAN CORPUSCULAR HGB CONC 32.4 g/dl (32.0-36.5); MEAN CORPUSCULAR VOLUME 89.3 fl (80.0-96.0); MONO # 0.6 10^3/uL (0.0-0.8); MONO % 6.4 % (2.0-8.0); NEUTROPHILS # 7.5 10^3/uL (1.5-8.5); NEUTROPHILS % 74.7 % (36.0-66.0); PLATELET COUNT, AUTOMATED 291 10^3/uL (150-450); RED BLOOD COUNT 3.63 10^6/uL (4.00-5.40); WHITE BLOOD COUNT 10.1 10^3/uL (4.0-10.0)
[2021-01-19] MEDS: SUCRALFATE SUSP 1GM/10ML UD PO SCH ×3 (06:57→18:08)
[2021-01-19 07:01] LABS: ALBUMIN 2.2 GM/DL (3.2-5.2); ALT/SGPT 68 U/L (12-78); BILIRUBIN,TOTAL 0.4 MG/DL (0.2-1.0); BLOOD UREA NITROGEN 15 MG/DL (7-18); CALCIUM LEVEL 8.6 MG/DL (8.8-10.2); CARBON DIOXIDE LEVEL 31 MEQ/L (21-32); CHLORIDE LEVEL 106 MEQ/L (98-107); CREATININE FOR GFR 0.52 MG/DL (0.55-1.30); GLOMERULAR FILTRATION RATE > 60.0 (>45); GLUCOSE, FASTING 69 MG/DL (70-100); MAGNESIUM LEVEL 2.3 MG/DL (1.8-2.4); SODIUM LEVEL 141 MEQ/L (136-145); TOTAL PROTEIN 5.8 GM/DL (6.4-8.2)
[2021-01-19] MEDS: FLUTICASONE HFA 110 MCG 12 GM INHALER (FLOVENT) INH SCH ×2 (07:41→17:57)
[2021-01-19 08:30] VITALS: O2SAT 91
[2021-01-19] MEDS: dexameTHASONE 20MG/5ML VIAL (J1100 PER 1MG) IV SCH (08:48)
[2021-01-19] MEDS: PANTOPRAZOLE 40MG VIAL (C9113 PER 1) IV SCH ×2 (08:48→20:42)
--- NOTE | 2021-01-19 12:44 | IPNPDOC ---
Text Note Date of Service The patient was seen on 01/19/21. NOTE Subjective: Patient is a 65-year-old female initially presented with COVID-19 pneumonia. Patient is currently on nasal cannula oxygen at 4 L. Patient does have a difficult time recovering her oxygen saturation after getting up from her chair and go to the bathroom. Patient is otherwise feeling great today. Patient states she is feeling much better although when I walked into the room today her oxygen saturation was 90 from 85 to 88%. Patient states that she is using her incentive spirometer and trying to prone as much as possible. Review of systems: General: Patient denies fevers HEENT: Patient denies headaches Cardiovascular: Patient denies chest pain Respiratory: Patient reports improvement in her shortness of breath, cough GI: Patient denies abdominal pain, nausea, vomiting, diarrhea : Patient denies increased frequency or pain with urination Extremities: Patient denies swelling or pain in extremities Neurological: Patient denies numbness or tingling in legs Physical exam: Vitals: See below General: Alert and oriented female patient was sitting in bedside chair with nasal cannula oxygen in place when I walked in the room. Patient not appear to be in any acute distress. HEENT: Normocephalic, atraumatic, moist mucous membranes. Neck: No lymphadenopathy or thyromegaly Cardiac: Regular rate and rhythm, no murmurs, normal S1, normal S2 Pulm: Diminished breath sounds bilaterally Abd: Nondistended, nontender to palpation, normal bowel sounds Ext: No edema bilateral lower extremities Labs: See below Imaging: No new imaging has been performed Assessment/plan: 65-year-old female presented with hypoxia secondary to COVID-19 pneumonia 1. Acute hypoxic respiratory failure secondary to COVID-19. Patient continues on nasal cannula oxygen. Continue with Decadron baricitinib full courses. Patient completed course of remdesivir. Not on anticoagulation secondary to GI bleed. Still requiring oxygen therapy with nasal cannula. Patient has been weaned off Vapotherm. Goal is to try to wean the patient down hopefully off oxygen completely however, I believe we are to wean her down to 2 to 3 L at rest and about 4 to 5 L with ambulation, patient be discharged home on this. I expect the discharge sometime middle to late week. 2. Anemia secondary to GI bleed. Patient developed GI bleed with positive occult blood. Received 4 units of blood total. Teds and sequentials for DVT prophylaxis has been continue to hold anticoagulation due to GI bleed. Hemoglobin is now stable. If remains stable we can resume anticoagulation tomorrow. 3. COVID-19 pneumonia. Procalcitonin is been negative we will continue to monitor. Treatment per assessment #1. 4. Hypertension. Blood pressure controlled. Mild hypotensive couple days ago was asymptomatic. Hold parameters on medication. 5. Hyperlipidemia. Continue statin therapy 6. Asthma. Continue steroid inhaler. 7. Hyperkalemia, resolved. Continue to monitor. 8. Leukocytosis. Most likely secondary to steroids. Improving. DVT Prophylaxis: Teds and sequentials Disposition: Pending improvement in her oxygenation VS,[place], I+O VS, [place], I+O Laboratory Tests 01/19/21 05:51 Vital Signs Date Time Temp Pulse Resp B/P (MAP) Pulse Ox O2 Delivery O2 Flow Rate FiO2 01/19/21 08:30 91 Nasal Cannula 4.0 01/19/21 06:00 98.0 71 18 137/62 (87) 01/17/21 13:45 30 I&O- Last 24 Hours up to 6 AM 01/19/21 05:59 Intake Total 1320 ml Output Total 800 ml Balance 520 ml BASSEM CALERO DO Jan 19, 2021 12:44
[2021-01-19 14:00] VITALS: BP 119/58
[2021-01-19 16:00] VITALS: O2SAT 94
[2021-01-19] MEDS: METOPROLOL SUCC *XL* 25MG TAB (TopROL *XL*) PO SCH (20:19)
[2021-01-19] MEDS: ATORVASTATIN 10 MG TAB PO SCH (20:42)
[2021-01-19] MEDS: PRIMIDONE 25MG PER 1/2 TABLET PO SCH (20:42)
[2021-01-19] MEDS: MAGNESIUM OXIDE 400MG TAB (MAG-OX) PO SCH (20:42)
[2021-01-19 22:00] VITALS: BP 98/54
[2021-01-20] VITALS (7 sets, daily range): BP systolic 98–141; BP diastolic 56–78; O2SAT 92–99
[2021-01-20] MEDS: SUCRALFATE SUSP 1GM/10ML UD PO SCH ×5 (00:32→23:18)
[2021-01-20] MEDS: FLUTICASONE HFA 110 MCG 12 GM INHALER (FLOVENT) INH SCH ×2 (08:16→20:24)
[2021-01-20] MEDS: dexameTHASONE 20MG/5ML VIAL (J1100 PER 1MG) IV SCH (09:49)
[2021-01-20] MEDS: PANTOPRAZOLE 40MG VIAL (C9113 PER 1) IV SCH ×2 (09:50→20:40)
[2021-01-20 10:22] LABS: BASO % 0.3 % (0.0-1.0); EOS # 0.2 10^3/uL (0.0-0.5); EOS % 2.1 % (0.0-3.0); HEMOGLOBIN 10.3 g/dl (12.0-15.5); LYMPH # 1.8 10^3/uL (1.5-5.0); LYMPH % 15.7 % (24.0-44.0); MEAN CORPUSCULAR HGB CONC 32.2 g/dl (32.0-36.5); MEAN CORPUSCULAR VOLUME 90.1 fl (80.0-96.0); MONO # 0.7 10^3/uL (0.0-0.8); MONO % 6.5 % (2.0-8.0); NEUTROPHILS # 8.4 10^3/uL (1.5-8.5); NEUTROPHILS % 74.7 % (36.0-66.0); PLATELET COUNT, AUTOMATED 294 10^3/uL (150-450); RED BLOOD COUNT 3.55 10^6/uL (4.00-5.40); WHITE BLOOD COUNT 11.3 10^3/uL (4.0-10.0)
[2021-01-20 10:53] LABS: ALBUMIN 2.2 GM/DL (3.2-5.2); ALT/SGPT 59 U/L (12-78); BILIRUBIN,TOTAL 0.4 MG/DL (0.2-1.0); BLOOD UREA NITROGEN 16 MG/DL (7-18); CALCIUM LEVEL 8.7 MG/DL (8.8-10.2); CARBON DIOXIDE LEVEL 30 MEQ/L (21-32); CHLORIDE LEVEL 105 MEQ/L (98-107); CREATININE FOR GFR 0.55 MG/DL (0.55-1.30); GLOMERULAR FILTRATION RATE > 60.0 (>45); GLUCOSE, FASTING 83 MG/DL (70-100); MAGNESIUM LEVEL 2.2 MG/DL (1.8-2.4); POTASSIUM SERUM 4.1 MEQ/L (3.5-5.1); SODIUM LEVEL 140 MEQ/L (136-145); TOTAL PROTEIN 5.3 GM/DL (6.4-8.2)
--- NOTE | 2021-01-20 12:55 | IPNPDOC ---
Text Note Date of Service The patient was seen on 01/20/21. NOTE Subjective: Patient is a six 5-year-[age] female initially presented with COVID-19 pneumonia. Patient currently on nasal cannula oxygen at 3 L. Patient is feeling well and is excited about the possibility of going home tomorrow. Patient is otherwise doing well did not have any acute events overnight. Patient work with physical therapy yesterday and cleared to go home with 4 L of oxygen with exertion. Review of systems: General: Patient denies fevers HEENT: Patient denies headaches Cardiovascular: Patient denies chest pain Respiratory: Patient denies shortness of breath, cough GI: Patient denies abdominal pain, nausea, vomiting, diarrhea : Patient denies increased frequency or pain with urination Extremities: Patient denies swelling or pain in extremities Neurological: Patient denies numbness or tingling in legs Physical exam: Vitals: See below General: Alert and oriented female patient who was laying prone in the bed when I walked in. Patient had nasal cannula oxygen in place. Patient not appear to be in any acute distress. HEENT: Normocephalic, atraumatic, moist mucous membranes. Neck: No lymphadenopathy or thyromegaly Cardiac: Regular rate and rhythm, no murmurs, normal S1, normal S2 Pulm: Diminished breath sounds bilaterally Abd: Nondistended, nontender to palpation, normal bowel sounds Ext: No edema bilateral lower extremities Labs: See below Imaging: No new imaging has been performed Assessment/plan: 65-year-old female presented with hypoxia secondary to COVID-19 pneumonia 1. Acute hypoxic respiratory failure secondary to COVID-19. Continue on nasal cannula oxygen. Continue Decadron and baricitinib for the full courses. Iram t completed full course of remdesivir. Not an anticoagulation secondary to GI bleed. Patient will be going home on 2 to 3 L of oxygen at rest and 4 L with exertion based on PT. Discharge expected tomorrow. Patient needs rolling walker and shower chair which have been ordered for the patient. 2. Anemia secondary to GI bleed. Patient developed a GI bleed with positive occult blood. Received 4 units of blood in total. Has not sequential for DVT prophylaxis has been continued. Hold anticoagulation as patient will be going home tomorrow. Hemoglobin now stable. 3. COVID-19 pneumonia. Procalcitonin is been negative. Continue treatment per assessment #1. 4. Hypertension. Blood pressure control. Mild hypotensive episodes a couple days ago but was asymptomatic. Hold parameters been placed on medication. 5. Hyperlipidemia. Continue statin therapy. 6. Asthma. Continue with steroid inhaler. 7. Hyperkalemia, resolved. 8. Leukocytosis, most likely secondary to steroids, improving. DVT Prophylaxis: Teds and sequentials Disposition: Discharge home tomorrow VS,Fiona, I+O VS, Fiona, I+O Laboratory Tests 01/20/21 09:18 Vital Signs Date Time Temp Pulse Resp B/P (MAP) Pulse Ox O2 Delivery O2 Flow Rate FiO2 01/20/21 08:30 3.0 01/20/21 08:00 92 Nasal Cannula 01/20/21 05:53 97.1 72 20 141/61 (87) 01/17/21 13:45 30 I&O- Last 24 Hours up to 6 AM 01/20/21 06:00 Intake Total 2330 ml Balance 2330 ml BASSEM CALERO DO Jan 20, 2021 12:55
[2021-01-20] MEDS: ATORVASTATIN 10 MG TAB PO SCH (20:40)
[2021-01-20] MEDS: MAGNESIUM OXIDE 400MG TAB (MAG-OX) PO SCH (20:40)
[2021-01-20] MEDS: PRIMIDONE 25MG PER 1/2 TABLET PO SCH (20:40)
[2021-01-20] MEDS: METOPROLOL SUCC *XL* 25MG TAB (TopROL *XL*) PO SCH (20:46)
[2021-01-21] MEDS: SUCRALFATE SUSP 1GM/10ML UD PO SCH ×2 (05:11→12:32)
[2021-01-21 06:00] VITALS: BP 153/70
[2021-01-21] MEDS: dexameTHASONE 20MG/5ML VIAL (J1100 PER 1MG) IV SCH (09:18)
[2021-01-21] MEDS: PANTOPRAZOLE 40MG VIAL (C9113 PER 1) IV SCH (09:18)
[2021-01-21] MEDS: FLUTICASONE HFA 110 MCG 12 GM INHALER (FLOVENT) INH SCH (11:14)
--- NOTE | 2021-01-21 12:00 | DS.PDOC ---
Discharge Summary General Date of Admission Dec 31, 2020 at 23:58 Date of Discharge 01/21/2022 Attending Physician: BASSEM CALERO DO Specialist/Consultants Involve: LINCOLN DURON MD Discharge Summary PROCEDURES PERFORMED DURING STAY: None. ADMITTING DIAGNOSES: 1. COVID-19 with hypoxia. 2. Hypertension 3. Hyperlipidemia 4. Asthma DISCHARGE DIAGNOSES: 1. Acute hypoxic respiratory failure secondary to COVID-19, improved 2. Anemia secondary to GI bleed, improved 3. COVID-19 pneumonia, improved 4. Hypertension 5. Hyperlipidemia 6. Asthma 7. Hyperkalemia, resolved 8. Leukocytosis, improved COMPLICATIONS/CHIEF COMPLAINT: Covid-19, Hypoxia. HISTORY OF PRESENT ILLNESS: Patient is a 65-year-old female past medical history of hypertension hyperlipidemia who presented as a direct transfer from [facility] for management of hypoxia secondary to Covid pneumonia. Patient states that she feels as though her symptoms began in October after carpal tunnel surgery. Patient states that after she left the hospital she noted she had become increasingly fatigued and short of breath and was no longer able to take her daily walks. Patient states that she eventually reported to [facility] about 1 month ago and subsequently transferred to [place] for cardiac work-up. At [place] she underwent a cardiac catheterization was found to be normal and thus was sent home. Patient again reported [facility] on 12/31/2020 and was found to be hypoxic and positive for COVID-19. Patient was transferred to [facility] for management. Patient received a dose of monoclonal antibodies, ceftriaxone, azithromycin and Lasix before arriving at [facility]. At the time of the admitting providers examination, patient was in the Covid unit. Patient states that she feels as though she been having symptoms for 2 months and has not been getting any better. Patient tells the admitting provider that she has had generalized malaise, fatigue, and shortness of breath. Patient complains of persistent cough but states that she rarely has any sputum and when she does it is scant and clear in color. Patient states that she also has recurrent subjective fever, anorexia, nausea. Patient denies any vomiting, chest pain hemoptysis, diarrhea, constipation, abdominal pain, pedal edema. Patient did not receive her COVID-19 vaccination. HOSPITAL COURSE: Patient initially worsened and on hospital day 2 had to be transferred into the intensive care unit as she was maxed out on Vapotherm and had to be switched over to BiPAP with settings of 16/6 with 100% FiO2. Patient remained on BiPAP for the majority of the time for the first 3 or 4 days in the intensive care unit. Patient was able to switch back and forth to Vapotherm at some point however, her oxygen saturations did decline. Patient did receive a full course of remdesivir. She was on Decadron and baricitinib throughout her course. Patient also had a short course of empiric antibiotics. On 01/11/2021 patient began to have decreased hemoglobin and on 01/12/2021, patient was found to have a critically low hemoglobin of 6.5. This was most likely secondary to GI bleed from DVT prophylaxis with Lovenox. Patient was transfused 2 units at that time and her hemoglobin continued to drop and on 01/14/2021, patient received 2 additional units of packed red blood cells. Patient's hemoglobin did stabilize and patient did not have any further GI bleeding. Patient had her Lovenox stopped at that time and this was never really continued. Patient was placed on teds and sequential devices for DVT prophylaxis and continued to improve. Patient's aspirin was also held but this can be restarted once the patient is at home. Patient continued to improve and was transferred out of the intensive care unit on 01/14/2021 as her oxygen requirements had decreased. Patient was placed on Vapotherm therapy and was able to be weaned off Vapotherm therapy on 01/17/2021. Patient was still on high flow nasal cannula but settled on 3 L/min at rest and 4 L/min while exerting herself. Patient work with physical therapy and was doing well. Patient needed equipment and oxygen sent to her house so these prescriptions were sent on 01/20/2021 so that they be ready for the patient to be discharged. Patient was doing well on the oxygen that she will be going home on and patient was discharged home on 01/21/2021. DISCHARGE MEDICATIONS: Please see below. ALLERGIES: Please see below. PHYSICAL EXAMINATION ON DISCHARGE: VITAL SIGNS: Please see below. General: Alert and oriented female patient who was sitting up in the bedside chair and I walked in. Patient did not appear to be in any acute distress. Patient had nasal cannula oxygen in place. HEENT: Normocephalic, atraumatic, moist mucous membranes. Neck: No lymphadenopathy or thyromegaly Cardiac: Regular rate and rhythm, no murmurs, normal S1, normal S2 Pulm: Diminished breath sounds bilaterally Abd: Nondistended, nontender to palpation, normal bowel sounds Ext: No edema bilateral lower extremities LABORATORY DATA: Please see below. IMAGING: Chest x-ray performed on 01/01/2021 is reported to show significant diffuse bilateral alveolar infiltrates compatible with COVID-19 pulmonary disease PROGNOSIS: Fair ACTIVITY: As tolerated. DIET: Regular DISCHARGE PLAN: Discharge home with home health service DISPOSITION: Home health service DISCHARGE INSTRUCTIONS: 1. Follow-up with your primary care provider within 3 to 5 days discharge. 2. Continue home oxygen at 3 L at rest and 4 L upon exertion. Follow-up with home health care and your primary care provider. 3. Return to the emergency department if symptoms worsen. ITEMS TO FOLLOWUP ON ON OUTPATIENT: 1. Continuing to wean home oxygen. DISCHARGE CONDITION: Stable. TIME SPENT ON DISCHARGE: 40 minutes. Vital Signs/I&Os Vital Signs Date Time Temp Pulse Resp B/P (MAP) Pulse Ox O2 Delivery O2 Flow Rate FiO2 01/21/21 06:00 97.0 69 21 153/70 (97) 96 Nasal Cannula 3.0 01/17/21 13:45 30 I&O- Last 24 Hours up to 6 AM 01/21/21 06:00 Intake Total 1020 ml Balance 1020 ml Microbiology Microbiology 01/12/21 Blood Culture - Final, Complete NO GROWTH AFTER 5 DAYS 01/12/21 Blood Culture - Final, Complete NO GROWTH AFTER 5 DAYS 01/12/21 Stool Occult Blood (AGUS) - Final, Complete Discharge Medications Scheduled Atorvastatin Calcium (Atorvastatin Calcium) 10 Mg Tablet, 10 MG PO QHS, (Reported) Biotin (Biotin) 5 Mg Tablet, 5,000 MCG PO QHS, (Reported) Calcium Carbonate/Vitamin D3 (Caltrate 600 + D Soft Chew Tab) 1 Each Tab.chew, 1 CHW PO QHS, (Reported) Cider Vinegar (Apple Cider Vinegar) 500 Mg Tablet, 1,000 MG PO QHS, (Reported) Cinnamon Bark (Cinnamon) 500 Mg Capsule, 1,000 MG PO QHS, (Reported) Fluticasone/Vilanterol (Breo Ellipta 100-25 Mcg INH) 1 Each Blst.w.dev, 1 PUFF INH DAILY, (Reported) Magnesium Oxide (Magnesium Oxide) 400 Mg Tablet, 400 MG PO QHS, (Reported) Metoprolol Succinate (Metoprolol Succinate) 25 Mg Tab.er.24h, 25 MG PO QHS, (Reported) Multivitamins (Thera M Plus Tablet) 1 Each Tablet, 1 TAB PO QHS, (Reported) [place]-3 Fatty Acids/Fish Oil (Fish Oil 1,000 mg Capsule) 1 Each Capsule, 1,000 MG PO QHS, (Reported) Primidone (Primidone) 50 Mg Tablet, 25 MG PO QHS, (Reported) Scheduled PRN Albuterol Sulfate (Proair Hfa) 8.5 Gm Hfa.aer.ad, 2 PUFF INH Q4H PRN for SHORTNESS OF BREATH, (Reported) Allergies Coded Allergies: No Known Allergies (Unverified , 11/20/08) BASSEM CALERO DO Jan 21, 2021 12:00
== END 2021-01-21 13:40 | disposition home health service (06) | DRG 177 ==
LOC: M 4MAIN 23:12 → OBSVTOIN 23:58 → M ICU 01-01 14:50 → M 4MAIN 01-14 10:55
PROVIDERS: ADMIT Internal Medicine; ATTEND Family Medicine
PROC: 3E0333Z Introduction of Anti-inflammatory into Peripheral Vein, Percutaneous Approach (ICD-10-PCS; principal; 2021-01-01)
PROC: XW033E5 Introduction of Remdesivir Anti-infective into Peripheral Vein, Percutaneous Approach, New Technology Group 5 (ICD-10-PCS; 2021-01-01)
PROC: 5A0955Z Assistance with Respiratory Ventilation, Greater than 96 Consecutive Hours (ICD-10-PCS; 2021-01-01)
PROC: 30233N1 Transfusion of Nonautologous Red Blood Cells into Peripheral Vein, Percutaneous Approach (ICD-10-PCS; 2021-01-12)
DX: U07.1 COVID-19 (principal); J12.82 Pneumonia due to coronavirus disease 2019; J96.01 Acute respiratory failure with hypoxia; K92.2 Gastrointestinal hemorrhage, unspecified; D62 Acute posthemorrhagic anemia; I10 Essential (primary) hypertension; E78.5 Hyperlipidemia, unspecified; Z90.79 Acquired absence of other genital organ(s); Z87.891 Personal history of nicotine dependence; J45.909 Unspecified asthma, uncomplicated; Z66 Do not resuscitate; E87.5 Hyperkalemia; D72.829 Elevated white blood cell count, unspecified; Z79.899 Other long term (current) drug therapy

== ENCOUNTER → 2021-03-16 | Outpatient (CLI) | payer MEDICARE, OTHER ==
[~2021-03-16] MED LIST: APPLTAB2 PO; ATOR1TAB19 PO; BREO1INH INH; CALTCHW5 PO; CINN500C15 PO; FISH1000 PO; MAGN400T2 PO; METO1TAB32 PO; PRIM50TA6 PO; PROAAER10 INH; SUPE5000 PO; VITMTA PO
--- NOTE | 2021-03-16 10:05 | REP ---
INDICATION: ABNORMAL LUNG FINDING COMPARISON: 12/01/2020 TECHNIQUE: Axial noncontrast images from the thoracic inlet to the upper abdomen with coronal and sagittal reformations. This CT examination was performed using the following dose reduction techniques: Automated exposure control, adjustment of mA and/or kv according to the patient's size, and use of iterative reconstruction technique. FINDINGS: Lung bernal demonstrate advanced bilateral COPD/emphysematous changes which appear progressively increased from prior examination. No discrete acute focal consolidation. No effusion. No pneumothorax. Tracheobronchial tree is patent. No adenopathy. 6 mm noncalcified nodule in the left upper lobe (image 34) is again identified and unchanged. The mediastinum demonstrates stable atherosclerotic changes to the thoracic aorta and coronary arteries without aortic aneurysm or cardiomegaly. No pericardial effusion. IMPRESSION: 1. Progressively increased advanced emphysematous disease. 2. Stable 6 mm noncalcified nodule in the left upper lobe. Follow-up examination at 9-12 months may be warranted to confirm stability. <Electronically signed by Amarjit Chaudhry > 03/16/21 1003
== END ==
LOC: M PLAIMG 08:57
PROVIDERS: ATTEND Internal Medicine Pulmonary Disease
DX: R91.8 Other nonspecific abnormal finding of lung field (principal); R91.1 Solitary pulmonary nodule; J43.9 Emphysema, unspecified

== ENCOUNTER → 2021-06-03 | Outpatient (CLI) | payer MEDICARE, OTHER | LOC: M SLEEP 20:00 | PROVIDERS: ATTEND Internal Medicine Pulmonary Disease | DX: G47.33 Obstructive sleep apnea (adult) (pediatric) (principal); G47.61 Periodic limb movement disorder ==

== ENCOUNTER → 2021-10-28 | Outpatient (CLI) | payer MEDICARE, OTHER | LOC: M RAD 11:01 | PROVIDERS: ATTEND Internal Medicine Pulmonary Disease | DX: R91.8 Other nonspecific abnormal finding of lung field (principal) ==

== ENCOUNTER → 2022-05-31 | Outpatient (CLI) | payer MEDICARE, OTHER | LOC: M PLAIMG 10:35 | PROVIDERS: ATTEND Internal Medicine Pulmonary Disease | DX: R91.8 Other nonspecific abnormal finding of lung field (principal) ==

== ENCOUNTER → 2022-10-21 | Outpatient (CLI) | payer MEDICARE, OTHER ==
[2022-10-21 15:06] LABS: C REACTIVE PROTEIN QUANTITATIV < 0.40 MG/DL (<1.0)
[2022-10-21 15:08] LABS: RHEUMATOID FACTOR QUANT < 3.5 IU/ML (<14)
[2022-10-21 15:10] LABS: BASO # 0.1 10^3/uL (0.0-0.2); EOS # 0.2 10^3/uL (0.0-0.5); EOS % 2.6 % (0.0-3.0); HEMATOCRIT 43.2 % (36.0-47.0); HEMOGLOBIN 14.4 g/dl (12.0-15.5); LYMPH # 1.9 10^3/uL (1.5-5.0); LYMPH % 23.8 % (24.0-44.0); MEAN CORPUSCULAR HEMOGLOBIN 30.4 pg (27.0-33.0); MEAN CORPUSCULAR HGB CONC 33.3 g/dl (32.0-36.5); MEAN CORPUSCULAR VOLUME 91.3 fl (80.0-96.0); MONO # 0.7 10^3/uL (0.0-0.8); MONO % 9.1 % (2.0-8.0); NEUTROPHILS # 5.1 10^3/uL (1.5-8.5); NEUTROPHILS % 62.4 % (36.0-66.0); PLATELET COUNT, AUTOMATED 244 10^3/uL (150-450); RED BLOOD COUNT 4.73 10^6/uL (4.00-5.40); WHITE BLOOD COUNT 8.2 10^3/uL (4.0-10.0)
[2022-10-21 16:11] LABS: ERYTHROCYTE SEDIMENTATION RATE 13 mm/hr (0-30)
[2022-10-22 12:09] LABS: ANTINUCLEAR ANTIBODIES DIRECT Negative (Negative)
== END ==
LOC: M PLALAB 11:12
PROVIDERS: ATTEND Physician Assistant
DX: M19.042 Primary osteoarthritis, left hand (principal)

== ENCOUNTER → 2023-06-30 | Outpatient (CLI) | payer MEDICARE, OTHER | LOC: M RAD 14:38 | PROVIDERS: ATTEND Internal Medicine Pulmonary Disease | DX: R91.8 Other nonspecific abnormal finding of lung field (principal); J98.11 Atelectasis; I51.7 Cardiomegaly; I25.10 Atherosclerotic heart disease of native coronary artery without angina pectoris; I70.0 Atherosclerosis of aorta; K44.9 Diaphragmatic hernia without obstruction or gangrene ==

== ENCOUNTER → 2023-08-22 | Outpatient (CLI) | payer MEDICARE, OTHER | LOC: M SLEEP 20:00 | PROVIDERS: ATTEND Internal Medicine Pulmonary Disease | DX: G47.30 Sleep apnea, unspecified (principal) ==

== ENCOUNTER → 2023-09-24 | Outpatient (CLI) | payer MEDICARE, OTHER ==
[~2023-09-24] MED LIST changes: +PRED20TA PO; +XARE10TA PO
== END ==
LOC: M SLEEP 20:00
PROVIDERS: ATTEND Internal Medicine Pulmonary Disease
DX: G47.33 Obstructive sleep apnea (adult) (pediatric) (principal); G47.61 Periodic limb movement disorder

== ENCOUNTER 2023-09-27 18:43 | Emergency (ER) | payer MEDICARE, OTHER ==
[~2023-09-27] VITALS: Ht 165.1 cm; Wt 93.2 kg
[~2023-09-27 18:43] MED LIST changes: -PRED20TA PO; -XARE10TA PO
[2023-09-27] MEDS ORDERED: XARE10TA PO (18:55)
[2023-09-27 20:21] LABS: BASO # 0.1 10^3/uL (0.0-0.2); BASO % 1.1 % (0.0-1.0); EOS # 0.3 10^3/uL (0.0-0.5); EOS % 4.5 % (0.0-3.0); HEMATOCRIT 40.1 % (36.0-47.0); LYMPH # 1.9 10^3/uL (1.5-5.0); LYMPH % 26.1 % (24.0-44.0); MEAN CORPUSCULAR HEMOGLOBIN 30.6 pg (27.0-33.0); MEAN CORPUSCULAR HGB CONC 34.9 g/dl (32.0-36.5); MEAN CORPUSCULAR VOLUME 87.7 fl (80.0-96.0); MONO # 0.7 10^3/uL (0.0-0.8); MONO % 9.6 % (2.0-8.0); NEUTROPHILS # 4.3 10^3/uL (1.5-8.5); NEUTROPHILS % 58.3 % (36.0-66.0); PLATELET COUNT, AUTOMATED 254 10^3/uL (150-450); RED BLOOD COUNT 4.57 10^6/uL (4.00-5.40); WHITE BLOOD COUNT 7.3 10^3/uL (4.0-10.0)
[2023-09-27 20:52] LABS: CK-MB VALUE MASS 2.1 NG/ML (<3.6)
[2023-09-27 20:54] LABS: BLOOD UREA NITROGEN 24 MG/DL (9-23); CALCIUM LEVEL 9.2 MG/DL (8.3-10.6); CARBON DIOXIDE LEVEL 27 MMOL/L (20-31); CHLORIDE LEVEL 107 MMOL/L (98-107); GLOMERULAR FILTRATION RATE > 60.0 (>45); GLUCOSE, FASTING 119 MG/DL (74-106); POTASSIUM SERUM 4.3 MMOL/L (3.5-5.1); SODIUM LEVEL 142 MMOL/L (136-145)
[2023-09-27 20:56] LABS: CPK CREATINE PHOSPHOKINASE 72 U/L (34-145); MB/CK RELATIVE INDEX 2.91 (< OR =4)
[2023-09-27 22:04] LABS: CK-MB VALUE MASS 1.9 NG/ML (<3.6)
[2023-09-27] MEDS ORDERED: ISOVUE-370 76% 100ML VIAL As Ordered ONE (22:10)
[2023-09-27 22:30] LABS: MB/CK RELATIVE INDEX 2.71 (< OR =4)
[2023-09-27] MEDS: KETOROLAC 30 MG/ML 1ML VIAL IV ONE (22:57)
[2023-09-27 23:44] LABS: CK-MB VALUE MASS 1.8 NG/ML (<3.6)
[2023-09-28] VITALS: BP 133/74; TEMP 97.8; O2SAT 95
[2023-09-28] MEDS ORDERED: PRED20TA PO (00:22)
== END 2023-09-28 00:36 | disposition home or self-care (01) ==
LOC: M ED 18:43
DX: S29.011A Strain of muscle and tendon of front wall of thorax, initial encounter (principal); Y92.9 Unspecified place or not applicable; Y93.9 Activity, unspecified; Y99.9 Unspecified external cause status; I45.19 Other right bundle-branch block; I50.22 Chronic systolic (congestive) heart failure; I48.91 Unspecified atrial fibrillation; I11.0 Hypertensive heart disease with heart failure; E78.5 Hyperlipidemia, unspecified; Z79.51 Long term (current) use of inhaled steroids; Z79.810 Long term (current) use of selective estrogen receptor modulators (SERMs); Z79.899 Other long term (current) drug therapy; Z79.52 Long term (current) use of systemic steroids
CPT/HCPCS: 71045; 71275; 80048; 82550; 82553; 84484; 85025; 93005; 93041; 94760; 96374; 99285; J1885; Q9967

== ENCOUNTER → 2024-06-07 | Outpatient (CLI) | payer MEDICARE, OTHER ==
[~2024-06-07] MED LIST changes: +PRED20TA PO; +XARE10TA PO
[2024-06-07 08:35] LABS: BASO # 0.1 10^3/uL (0.0-0.2); BASO % 1.1 % (0.0-1.0); EOS # 0.2 10^3/uL (0.0-0.5); EOS % 2.9 % (0.0-3.0); HEMATOCRIT 42.2 % (36.0-47.0); HEMOGLOBIN 14.4 g/dl (12.0-15.5); LYMPH % 27.2 % (24.0-44.0); MEAN CORPUSCULAR HEMOGLOBIN 29.3 pg (27.0-33.0); MEAN CORPUSCULAR HGB CONC 34.1 g/dl (32.0-36.5); MEAN CORPUSCULAR VOLUME 85.8 fl (80.0-96.0); MONO # 0.6 10^3/uL (0.0-0.8); MONO % 8.8 % (2.0-8.0); NEUTROPHILS # 4.3 10^3/uL (1.5-8.5); NEUTROPHILS % 59.4 % (36.0-66.0); PLATELET COUNT, AUTOMATED 262 10^3/uL (150-450); RED BLOOD COUNT 4.92 10^6/uL (4.00-5.40); WHITE BLOOD COUNT 7.2 10^3/uL (4.0-10.0)
[2024-06-07 09:02] LABS: ALBUMIN 3.8 G/DL (3.2-5.2); ALKALINE PHOSPHATASE 88 U/L (35-104); ALT/SGPT 32 U/L (7.0-40); AST/SGOT 16 U/L (<34); BILIRUBIN,TOTAL 0.6 MG/DL (0.3-1.2); BLOOD UREA NITROGEN 12 MG/DL (9-23); CALCIUM LEVEL 9.5 MG/DL (8.3-10.6); CARBON DIOXIDE LEVEL 27 MMOL/L (20-31); CHLORIDE LEVEL 107 MMOL/L (98-107); CHOLESTEROL LEVEL 138 MG/DL (<200); CHOLESTEROL RISK RATIO 4.18 (<5); CREATININE FOR GFR 0.68 MG/DL (0.55-1.30); FREE T4 1.28 NG/DL (0.89-1.76); GLOMERULAR FILTRATION RATE > 60.0 (>45); GLUCOSE, FASTING 94 MG/DL (74-106); LDL CHOLESTEROL 81.2 MG/DL (<100); MAGNESIUM LEVEL 1.8 MG/DL (1.8-2.4); POTASSIUM SERUM 4.2 MMOL/L (3.5-5.1); SODIUM LEVEL 142 MMOL/L (136-145); TRIGLYCERIDES LEVEL 119 MG/DL (<150)
[2024-06-07 09:03] LABS: THYROID STIMULATING HORMONE 3.036 uIU/ML (0.55-4.78)
== END ==
LOC: M EKG 07:43
PROVIDERS: ATTEND Registered Nurse
DX: I48.0 Paroxysmal atrial fibrillation (principal); E78.00 Pure hypercholesterolemia, unspecified

== ENCOUNTER → 2024-06-21 | Outpatient (CLI) | payer MEDICARE, OTHER | LOC: M CARPUL 16:08 | PROVIDERS: ATTEND Registered Nurse | DX: I48.91 Unspecified atrial fibrillation (principal) ==

== ENCOUNTER 2024-07-03 10:37 | Emergency (ER) | payer MEDICARE, OTHER ==
[~2024-07-03] VITALS: Ht 162.6 cm; Wt 100.0 kg
[2024-07-03] MEDS ORDERED: ROPI1TAB73 (10:49)
[2024-07-03] MEDS ORDERED: VERA120T83 (10:49)
[2024-07-03] MEDS ORDERED: FURO20TA2 (10:49)
[2024-07-03 14:26] LABS: BASO # 0.1 10^3/uL (0.0-0.2); EOS # 0.3 10^3/uL (0.0-0.5); EOS % 3.2 % (0.0-3.0); HEMATOCRIT 43.8 % (36.0-47.0); HEMOGLOBIN 14.6 g/dl (12.0-15.5); LYMPH # 2.5 10^3/uL (1.5-5.0); LYMPH % 23.9 % (24.0-44.0); MEAN CORPUSCULAR HEMOGLOBIN 29.7 pg (27.0-33.0); MEAN CORPUSCULAR HGB CONC 33.3 g/dl (32.0-36.5); MEAN CORPUSCULAR VOLUME 89.2 fl (80.0-96.0); MONO # 0.8 10^3/uL (0.0-0.8); MONO % 7.7 % (2.0-8.0); NEUTROPHILS # 6.6 10^3/uL (1.5-8.5); NEUTROPHILS % 63.7 % (36.0-66.0); PLATELET COUNT, AUTOMATED 245 10^3/uL (150-450); RED BLOOD COUNT 4.91 10^6/uL (4.00-5.40); WHITE BLOOD COUNT 10.4 10^3/uL (4.0-10.0)
[2024-07-03 14:56] LABS: CK-MB VALUE MASS 1.9 NG/ML (<3.6); LIPASE 25 U/L (12-53)
[2024-07-03 14:58] LABS: ALBUMIN 3.9 G/DL (3.2-5.2); ALKALINE PHOSPHATASE 88 U/L (35-104); ALT/SGPT 28 U/L (7.0-40); AST/SGOT 16 U/L (<34); BILIRUBIN,DIRECT 0.2 MG/DL (<0.4); BILIRUBIN,TOTAL 0.5 MG/DL (0.3-1.2); BLOOD UREA NITROGEN 18 MG/DL (9-23); CALCIUM LEVEL 9.5 MG/DL (8.3-10.6); CARBON DIOXIDE LEVEL 27 MMOL/L (20-31); CHLORIDE LEVEL 109 MMOL/L (98-107); CREATININE FOR GFR 0.62 MG/DL (0.55-1.30); GLOMERULAR FILTRATION RATE > 60.0 (>45); GLUCOSE, FASTING 85 MG/DL (74-106); POTASSIUM SERUM 4.8 MMOL/L (3.5-5.1); SODIUM LEVEL 144 MMOL/L (136-145); TOTAL PROTEIN 7.1 G/DL (5.7-8.2)
[2024-07-03 15:05] LABS: CPK CREATINE PHOSPHOKINASE 69 U/L (34-145); MB/CK RELATIVE INDEX 2.75 (< OR =4)
[2024-07-03 15:47] LABS: CK-MB VALUE MASS 1.5 NG/ML (<3.6)
[2024-07-03 15:55] LABS: MB/CK RELATIVE INDEX 2.94 (< OR =4)
[2024-07-03] MEDS: IPRATROPIUM 0.5MG/ALBUTEROL 2.5MG INH SOL UD 3ML (DUONEB) NEB ONE ×2 (16:51→19:38)
[2024-07-03] MEDS: dexAMETHasone 20MG/5ML VIAL IV ONE (18:19)
[2024-07-03] MEDS ORDERED: ISOVUE-370 76% 100ML VIAL As Ordered ONE (18:36)
[2024-07-03 21:21] VITALS: BP 142/92; TEMP 97.5; O2SAT 95
== END 2024-07-03 21:23 | disposition home or self-care (01) ==
LOC: M ED 10:37
DX: J44.1 Chronic obstructive pulmonary disease with (acute) exacerbation (principal); I48.91 Unspecified atrial fibrillation; I25.10 Atherosclerotic heart disease of native coronary artery without angina pectoris; I10 Essential (primary) hypertension; E78.5 Hyperlipidemia, unspecified; G47.33 Obstructive sleep apnea (adult) (pediatric); Z79.01 Long term (current) use of anticoagulants; Z79.899 Other long term (current) drug therapy
CPT/HCPCS: 71045; 71046; 71275; 80048; 80076; 82550; 82553; 83690; 84484; 85025; 87486; 87581; 87633; 87798; 93005; 93041; 94640; 94760; 96374; 99285; J1100; Q9967

== ENCOUNTER → 2024-07-24 | Outpatient (CLI) | payer MEDICARE, OTHER ==
[~2024-07-24] MED LIST changes: +FURO20TA2; +ONDA-282 PO; +ROPI1TAB73; +VERA120T83
== END ==
LOC: M CARPUL 13:03
PROVIDERS: ATTEND Registered Nurse
DX: R06.02 Shortness of breath (principal); R94.31 Abnormal electrocardiogram [ECG] [EKG]; I48.0 Paroxysmal atrial fibrillation

== ENCOUNTER 2024-07-25 20:34 | Emergency (ER) | payer MEDICARE, OTHER ==
[~2024-07-25] VITALS: Ht 165.1 cm; Wt 97.7 kg
[~2024-07-25 20:34] MED LIST changes: -ONDA-282 PO
[2024-07-25 20:41] VITALS: TEMP 97.8
[2024-07-25 21:03] LABS: BASO # 0.1 10^3/uL (0.0-0.2); BASO % 0.7 % (0.0-1.0); EOS # 0.2 10^3/uL (0.0-0.5); EOS % 2.1 % (0.0-3.0); HEMATOCRIT 43.8 % (36.0-47.0); LYMPH # 1.6 10^3/uL (1.5-5.0); LYMPH % 15.9 % (24.0-44.0); MEAN CORPUSCULAR HEMOGLOBIN 29.9 pg (27.0-33.0); MEAN CORPUSCULAR HGB CONC 34.2 g/dl (32.0-36.5); MEAN CORPUSCULAR VOLUME 87.4 fl (80.0-96.0); MONO # 0.8 10^3/uL (0.0-0.8); MONO % 7.8 % (2.0-8.0); NEUTROPHILS # 7.4 10^3/uL (1.5-8.5); PLATELET COUNT, AUTOMATED 218 10^3/uL (150-450); RED BLOOD COUNT 5.01 10^6/uL (4.00-5.40); WHITE BLOOD COUNT 10.1 10^3/uL (4.0-10.0)
[2024-07-25 21:25] LABS: INR 1.92; PROTHROMBIN TIME 22.1 SECONDS (12.5-14.5)
[2024-07-25] MEDS: ONDANSETRON 4MG 2ML VIAL IV ONE (21:28)
[2024-07-25 21:38] LABS: CK-MB VALUE MASS < 1.0 NG/ML (<3.6)
[2024-07-25 21:39] LABS: LIPASE 23 U/L (12-53)
[2024-07-25 21:41] LABS: ALBUMIN 3.5 G/DL (3.2-5.2); ALKALINE PHOSPHATASE 72 U/L (35-104); ALT/SGPT 29 U/L (7.0-40); AST/SGOT 13 U/L (<34); BILIRUBIN,DIRECT 0.1 MG/DL (<0.4); BILIRUBIN,TOTAL 0.4 MG/DL (0.3-1.2); BLOOD UREA NITROGEN 33 MG/DL (9-23); CALCIUM LEVEL 9.3 MG/DL (8.3-10.6); CARBON DIOXIDE LEVEL 25 MMOL/L (20-31); CHLORIDE LEVEL 106 MMOL/L (98-107); CPK CREATINE PHOSPHOKINASE 39 U/L (34-145); CREATININE FOR GFR 0.83 MG/DL (0.55-1.30); GLOMERULAR FILTRATION RATE > 60.0 (>45); GLUCOSE, FASTING 109 MG/DL (74-106); MB/CK RELATIVE INDEX 2.56 (< OR =4); POTASSIUM SERUM 4.3 MMOL/L (3.5-5.1); SODIUM LEVEL 139 MMOL/L (136-145); TOTAL PROTEIN 6.6 G/DL (5.7-8.2)
[2024-07-25] MEDS ORDERED: ISOVUE-370 76% 100ML VIAL As Ordered ONE (22:17)
[2024-07-25 22:34] VITALS: O2SAT 96
[2024-07-25] MEDS ORDERED: ONDA-282 PO (23:55)
[2024-07-26 00:12] VITALS: BP 109/62
== END 2024-07-26 00:27 | disposition home or self-care (01) ==
LOC: M ED 20:34
DX: R11.0 Nausea (principal); I10 Essential (primary) hypertension; E78.5 Hyperlipidemia, unspecified; I48.91 Unspecified atrial fibrillation; J45.909 Unspecified asthma, uncomplicated; G47.33 Obstructive sleep apnea (adult) (pediatric); Z79.01 Long term (current) use of anticoagulants; Z79.899 Other long term (current) drug therapy
CPT/HCPCS: 71045; 74174; 80048; 80076; 82550; 82553; 83690; 84484; 85025; 85610; 93005; 96374; 99284; J2405; Q9967

== ENCOUNTER 2024-11-12 10:34 | Day surgery (SDC) | payer MEDICARE, OTHER ==
[~2024-11-12] VITALS: Ht 165.1 cm; Wt 103.4 kg
[~2024-11-12 10:34] MED LIST changes: +CYCLOPENTOLATE 1% OPHTH SOLN 2 ML BTL OD SCH; +FLURBIPROFEN 0.03% OPHTH SOLN 2.5 ML OD SCH; -FURO20TA2; +FURO20TA2 PO; +LR 1,000 ML IV SCH; +ONDA-282 PO; +PHENYLEPHRINE 2.5% OPHTH SOL 2ML OD SCH; -ROPI1TAB73; +ROPI1TAB73 PO; +TETRACAINE 0.5% OPHTH SOLN 4ML OD SCH; +THERTAB52 PO; +TIRZ5PEN3 SC; -VERA120T83; +VERA120T83 PO; +VERA120T9 PO
[2024-11-12] MEDS ORDERED: MIDAZOLAM INJ 2 MG/2 ML VIAL As Ordered ONE (11:04)
[2024-11-12] MEDS: CYCLOPENTOLATE 1% OPHTH SOLN 2 ML BTL OD SCH (11:59)
[2024-11-12] MEDS: PHENYLEPHRINE 2.5% OPHTH SOL 2ML OD SCH (11:59)
[2024-11-12] MEDS: FLURBIPROFEN 0.03% OPHTH SOLN 2.5 ML OD SCH (11:59)
[2024-11-12] MEDS: TETRACAINE 0.5% OPHTH SOLN 4ML OD SCH (11:59)
[2024-11-12] MEDS: CEFUROXIME 1 MG/0.1 ML INTRACAMERAL INJ As Ordered ONE (13:18)
[2024-11-12] MEDS: LIDOCAINE 1% SDV 5 ML VIAL As Ordered ONE (13:18)
[2024-11-12] MEDS: DUOVISC (0.50 ML VISCOAT/0.85 ML PROVISC) OPHTH KIT As Ordered ONE (13:19)
[2024-11-12 13:38] VITALS: BP 168/85; TEMP 97.1; O2SAT 96
== END 2024-11-12 14:06 | disposition home or self-care (01) ==
LOC: M SDC 10:34
PROVIDERS: ATTEND Ophthalmology
DX: H25.11 Age-related nuclear cataract, right eye (principal); I48.91 Unspecified atrial fibrillation; G47.30 Sleep apnea, unspecified; J45.909 Unspecified asthma, uncomplicated; Z79.899 Other long term (current) drug therapy
CPT/HCPCS: 66984; J0697; J2250; J3010; V2632

== ENCOUNTER 2025-01-14 06:28 | Day surgery (SDC) | payer MEDICARE, OTHER ==
[~2025-01-14] VITALS: Ht 165.1 cm; Wt 105.0 kg
[~2025-01-14 06:28] MED LIST changes: -CYCLOPENTOLATE 1% OPHTH SOLN 2 ML BTL OD SCH; -FLURBIPROFEN 0.03% OPHTH SOLN 2.5 ML OD SCH; -LR 1,000 ML IV SCH; -PHENYLEPHRINE 2.5% OPHTH SOL 2ML OD SCH; -TETRACAINE 0.5% OPHTH SOLN 4ML OD SCH; +VALS1TAB66 PO
[2025-01-14] MEDS ORDERED: MIDAZOLAM INJ 2 MG/2 ML VIAL As Ordered ONE (06:58)
[2025-01-14] MEDS ORDERED: LR 1,000 ML IV SCH (07:00)
[2025-01-14] MEDS: TETRACAINE 0.5% OPHTH SOLN 4ML OS SCH (07:39)
[2025-01-14] MEDS: FLURBIPROFEN 0.03% OPHTH SOLN 2.5 ML OS SCH (07:39)
[2025-01-14] MEDS: CYCLOPENTOLATE 1% OPHTH SOLN 2 ML BTL OS SCH (07:39)
[2025-01-14] MEDS: PHENYLEPHRINE 2.5% OPHTH SOL 2ML OS SCH (07:39)
[2025-01-14] MEDS: LIDOCAINE 1% SDV 5 ML VIAL As Ordered ONE (08:26)
[2025-01-14] MEDS: CEFUROXIME 1 MG/0.1 ML INTRACAMERAL INJ As Ordered ONE (08:29)
[2025-01-14 08:43] VITALS: BP 133/73; TEMP 97.1; O2SAT 96
== END 2025-01-14 08:58 | disposition home or self-care (01) ==
LOC: M SDC 06:28
PROVIDERS: ATTEND Ophthalmology
DX: H25.12 Age-related nuclear cataract, left eye (principal); I48.91 Unspecified atrial fibrillation; I10 Essential (primary) hypertension; J45.909 Unspecified asthma, uncomplicated; G47.30 Sleep apnea, unspecified; Z79.899 Other long term (current) drug therapy; Z79.01 Long term (current) use of anticoagulants; Z79.51 Long term (current) use of inhaled steroids; Z90.710 Acquired absence of both cervix and uterus; Z95.5 Presence of coronary angioplasty implant and graft
CPT/HCPCS: 66984; J0697; J2250; J3010; V2632